=== PATIENT | male | born 1985 | race Caucasian/White ===

== ENCOUNTER 2020-09-30 23:29 | Emergency (ER) | payer OTHER, SELFPAY ==
[2020-09-30 23:51] VITALS: BP 114/73; PULSE 118; RESP 20; TEMP 37.7; O2SAT 98; BMI 24.3
[2020-10-01] VITALS: BP 128/80; PULSE 96; RESP 16; O2SAT 98
--- NOTE | 2020-10-01 00:10 | ED_ITS ---
HPI - Abdominal Pain General Chief Complaint: Abdominal Pain Stated Complaint: Vomiting Time Seen by Provider: 10/01/20 00:10 Source: patient Mode of arrival: ambulatory History of Present Illness HPI narrative: 35-year-old male who presents with nausea and vomiting since yesterday morning and now complaining of significant epigastric pain with chills denies any urinary symptoms, diarrhea and states that it feels like a big ball of fire. Patient states that he was drinking excessively the previous evening but is noted to have smoked marijuana as well. He states he is not had nausea and vomiting problems associated with marijuana use. Related Data Home Medications Medication Instructions Recorded Confirmed omeprazole 1 cap PO DAILY 09/30/20 09/30/20 Previous Rx's Medication Instructions Recorded sucralfate [Carafate] 10 ml PO BID #420 ml 10/01/20 Allergies Allergy/AdvReac Type Severity Reaction Status Date / Time No Known Allergies Allergy Mild NOT Verified 09/30/20 23:57 [No Known Allergies*] APPLICABLE Review of Systems Review of Systems Pertinent positives and negatives as stated in HPI 10 point review of systems is otherwise negative Physical Exam Vital Signs: Vital Signs: Last Vital Signs Temp 99.8 F 09/30/20 23:51 Pulse 96 10/01/20 00:00 Resp 16 10/01/20 00:00 BP 128/80 10/01/20 00:00 Pulse Ox 98 10/01/20 00:00 Body Mass Index 24.3 VITAL SIGNS: Reviewed. GENERAL: Well developed, well nourished, mild distress. HEAD: Normocephalic/atraumatic, EYES: PERRLA, EOMI OROPHARYNX: no oral lesions noted, posterior pharynx clear, dry mucosa NECK: Supple, no adenopathy LUNGS: Normal breath sounds. No adventitious sounds or accessory muscle use. SpO2<98> CARDIOVASCULAR: Regular rate and rhythm without noted murmurs ABDOMEN: Soft, diffusely tender through epigastrium and right side of abdomen but maximal at epigastrium without rebound, non-distended with bowel sounds. NEUROLOGIC: Alert and oriented x 4. Course Course Course Narrative: 35-year-old male with history and clinical presentation most consistent with gastritis, pancreatitis and less likely hepatobiliary or appendix pathologies. Review of all investigations for acute findings to better explain patient's symptoms and on re-evaluation patient has had significant improvement with IV fluids, Zofran, and GI cocktail. The GI cocktail was followed by a p.o. challenge which was successful and patient was also provided with Carafate. He reports significant improvement and is ready for discharge. MDM - Abdominal Pain Lab Data Result diagrams: 10/01/20 00:42 10/01/20 00:42 Labs: Lab Results 10/01/20 10/01/20 10/01/20 Range/Units 00:41 00:42 00:42 WBC 9.5 (4.8-10.8) X10*3/uL RBC 5.37 (4.60-5.80) X10*6/uL Hgb 15.8 (14.0-18.0) g/dl Hct 47.6 (42-52) % MCV 88.6 (80-98) fL MCH 29.4 (27.0-33.0) pg MCHC 33.2 (31.0-36.0) g/dl RDW 13.8 (11.0-16.0) % Plt Count 129 L (160-400) X10*3/uL MPV 12.5 H (9.4-12.4) fL Immature Gran % (Auto) 0.3 (0.0-0.4) % Neut % (Auto) 89.7 H (45-73) % Lymph % (Auto) 5.9 L (20-40) % Mcdonough % (Auto) 4.0 (2-11) % Eos % (Auto) 0.0 (0-4) % Baso % (Auto) 0.1 (0-2) % Lymph # (Auto) 0.6 L (1.2-4.9) X10*3/uL Mcdonough # (Auto) 0.4 (0.1-1.2) X10*3/uL Eos # (Auto) 0.0 (0.0-0.4) X10*3/uL Baso # (Auto) 0.0 (0.0-0.2) X10*3/uL Abs Immat Gran (auto) 0.03 (0.00-0.03) X10*3/uL Absolute Neuts (auto) 8.5 H (2.0-8.3) X10*3/uL Absolute Nucleated RBC 0.000 (0.0-0.012) X10*3/uL Nucleated RBC % (auto) 0.0 (0.0-0.2) /100WBC Smear Tech's Comments VERIFIED Sodium 144 (135-145) mmol/L Potassium 4.2 (3.3-5.1) mmol/L Chloride 104 (96-108) mmol/L Carbon Dioxide 26 (22-29) mmol/L Anion Gap 18 (12-20) BUN 13 (9-16) mg/dL Creatinine 1.26 (0.5-1.4) mg/dL Estim Creat Clear Calc 79.1 Estimated GFR > 60 Random Glucose 99 (60-115) mg/dL Calcium 10.3 H (8.4-10.2) mg/dL Total Bilirubin 1.1 H (0.0-1.0) mg/dL AST 15 (5-37) U/L ALT 13 (0-40) U/L Alkaline Phosphatase 69 (39-117) U/L Total Protein 7.7 (6.5-8.0) g/dL Albumin 5.2 H (3.5-5.0) g/dL Lipase 10 (8-78) U/L Discharge Plan Discharge Clinical Impression: Alcoholic gastritis Patient Disposition: Home, Self-Care Instructions: Gastritis (ED), Diet for Stomach Ulcers and Gastritis (ED) Additional Instructions: Increase fluid hydration especially with water. Stick with a bland diet for the next 24-48 hours. Follow-up with your primary care provider in the next 2-3 days for re- evaluation. Do not hesitate to return to the emergency room should you develop any acute worsening of symptoms. Prescriptions: New sucralfate [Carafate] 100 mg/mL suspension 10 ml PO BID Qty: 420 RF: 0 No Action omeprazole 40 mg capsule,delayed release(DR/EC) 1 cap PO DAILY RF: 0 PMFSH Past Medical History Source: nursing notes reviewed Medical History No known health problems Social History Social History Advance Directives: No
[2020-10-01 00:47] LABS: Basophils Percent Auto 0.1 % (0-2); Hematocrit 47.6 % (42-52); Hemoglobin 15.8 g/dl (14.0-18.0); Imm Gran Abs Auto 0.03 X10*3/uL (0.00-0.03); Imm Gran Pct Auto 0.3 % (0.0-0.4); Lymphocytes Absolute Auto 0.6 X10*3/uL (1.2-4.9); Lymphocytes Percent Auto 5.9 % (20-40); MANUAL DIFF FLAG SCAN; Mean Corpuscular HGB Conc 33.2 g/dl (31.0-36.0); Mean Corpuscular Hemoglobin 29.4 pg (27.0-33.0); Mean Corpuscular Volume 88.6 fL (80-98); Mean Platelet Volume 12.5 fL (9.4-12.4); Monocytes Absolute Auto 0.4 X10*3/uL (0.1-1.2); Neutrophils Absolute Auto 8.5 X10*3/uL (2.0-8.3); Neutrophils Percent Auto 89.7 % (45-73); Platelet Count 129 X10*3/uL (160-400); Red Blood Count 5.37 X10*6/uL (4.60-5.80); Red Cell Distribution Width 13.8 % (11.0-16.0); SCAN SMEAR FLAG 1; White Blood Count 9.5 X10*3/uL (4.8-10.8)
[2020-10-01] MEDS: 0.9 % Sodium Chloride 1,000 ML 999 ML IV ×2 (00:48→01:56)
[2020-10-01] MEDS: ondansetron HCL 4 MG/2 ML VIAL IVPUSH (00:48)
[2020-10-01 01:10] LABS: Alanine Aminotransferase 13 U/L (0-40); Albumin Level 5.2 g/dL (3.5-5.0); Alkaline Phosphatase 69 U/L (39-117); Anion Gap 18 (12-20); Aspartate Amino Transferase 15 U/L (5-37); Bilirubin Total 1.1 mg/dL (0.0-1.0); Blood Urea Nitrogen 13 mg/dL (9-16); Calcium 10.3 mg/dL (8.4-10.2); Carbon Dioxide 26 mmol/L (22-29); Chloride 104 mmol/L (96-108); Creatinine Clr Calc Pharmacy 79.1; Estimated Glomerular Filt Rate > 60; Glucose Random 99 mg/dL (60-115); Potassium 4.2 mmol/L (3.3-5.1); Sodium 144 mmol/L (135-145); Total Protein 7.7 g/dL (6.5-8.0)
[2020-10-01 01:11] LABS: Lipase 10 U/L (8-78)
[2020-10-01 01:11] LABS: SLIDE REVIEW VERIFIED
[2020-10-01] MEDS: Magnesium Hydrox/Alum Hydrox 30 ML ORAL.SUSP PO (01:56)
[2020-10-01] MEDS: diphenhydrAMINE HCL 50 MG/ML VIAL 25 MG IVPUSH (01:56)
[2020-10-01] MEDS: Lidocaine HCl Viscous 2 % 15 ML SOLUTION 10 ML MUCOUS MEM (01:56)
[2020-10-01] MEDS: Metoclopramide HCl 10 MG/2 ML VIAL IVPUSH (01:57)
[2020-10-01] MEDS: Famotidine/PF 20 MG/2 ML VIAL IVPUSH (01:57)
[2020-10-01 02:00] VITALS: BP 142/78; PULSE 103; RESP 20; TEMP 37.3; O2SAT 99
[2020-10-01] MEDS: Sucralfate Oral Suspension 1 GM/10 ML ORAL.SUSP PO (03:45)
[2020-10-01 04:00] VITALS: BP 118/72; PULSE 88; RESP 18; O2SAT 98
--- NOTE | 2020-10-01 04:17 | PC.NURSE ---
Patient given and tolerated PO challenge. Pt states I feel so much better than before, thank you so much . Will continue to monitor with likely plan to discharge home.
== END 2020-10-01 05:37 | disposition home or self-care (01) ==
PROVIDERS: Emergency Provider Student in an Organized Health Care Education/Training Program; PCP Internal Medicine
DX: K29.20 Alcoholic gastritis without bleeding (principal); R10.13 Epigastric pain
CPT/HCPCS: 36415; 80053; 83690; 85025; 96361; 96374; 96375; 99284; J1200; J2405; J2765

== ENCOUNTER 2020-10-13 09:19 | Emergency (ER) | payer OTHER, SELFPAY ==
--- NOTE | ~2020-10-13 | XR_ITS ---
EXAMINATION: XR HAND, RIGHT CLINICAL INFORMATION: Injury COMPARISON: None TECHNIQUE: PA, lateral, and oblique views of the right hand. FINDINGS: There is soft tissue swelling seen overlying the region of the third and fourth metacarpal phalangeal joints. No dislocation is evident. There is calcific density along the radial aspect base of the fourth proximal phalanx which could possibly represent small avulsion fracture fragment. This could be acute or chronic in nature. XR/XR hand RT 2V IMPRESSION: Soft tissue swelling with question avulsion injury base of the fourth proximal phalanx which may be acute or chronic in nature.
--- NOTE | 2020-10-13 10:58 | ED_ITS ---
HPI - Extremity Injury (Upper) General Chief Complaint: Extremity Injury, Upper Stated Complaint: swollen hand Time Seen by Provider: 10/13/20 10:54 Source: patient and RN notes reviewed Mode of arrival: ambulatory Limitations: no limitations History of Present Illness HPI narrative: 35-year-old male coming here today complaining of right hand pain. Patient reports that 6 days ago he punched cement wall and tried keeping ice on it for the 1st few days was able to move his hand, however this morning he woke up and his 4th knuckle is swollen, able to move his fingers however unable to close his fist tight. Denies any other symptoms Related Data Home Medications Medication Instructions Recorded Confirmed omeprazole 1 cap PO DAILY 09/30/20 09/30/20 Previous Rx's Medication Instructions Recorded sucralfate [Carafate] 10 ml PO BID #420 ml 10/01/20 ibuprofen 600 mg PO Q8H PRN #20 tab 10/13/20 Allergies Allergy/AdvReac Type Severity Reaction Status Date / Time No Known Allergies Allergy Mild NOT Verified 09/30/20 23:57 [No Known Allergies*] APPLICABLE Review of Systems Review of Systems: Constitutional : No Weight loss, No Fever, No Chills, No Night Sweats, No Fatigue, No Malaise ENT/Mouth : No Hearing loss, No Ear Pain, No Nasal Congestion, No Sinus Pain, No Hoarseness, No sore throat, No Rhinorrhea, No Swallowing Difficulty Eyes: No Eye Pain, No Swelling, No Redness, No Foreign Body, No Discharge, No Vision Changes Cardiovascular : No Chest Pain, No SOB, No Dyspnea on Exertion, No Orthopnea, No Edema, No Palpitations Respiratory : No Cough, No Sputum, No Wheezing, No Smoke Exposure, No Dyspnea Gastrointestinal : No Nausea, No Vomiting, No Diarrhea, No Constipation, No abdominal Pain, No Hematochezia, No Melena Genitourinary : no irregular bleeding, No Dysuria, No Urinary Frequency, No Hematuria, No Urinary Incontinence, No Urgency, No Flank Pain, No Urinary Flow Changes, No Hesitancy Musculoskeletal : joint pain , No Myalgias, Joint Swelling Skin : No Skin Lesions, No rash Neuro : No Weakness, No Numbness, No Paresthesias, No Loss of Consciousness, No Dizziness, No Headache Psych : No Anxiety/Panic, No Depression, No SI/HI/AH/VH, No Social Issues, Heme/Lymph: No Bruising, No Bleeding,No Lymphadenopathy Endocrine : No Polyuria, No Polydipsia, No Temperature Intolerance Yes all other systems are reviewed and are negative PMFSH Past Medical History Medical History (Updated 10/13/20 @ 11:49 by Jena Toribio [facility]) GERD (gastroesophageal reflux disease) No known health problems Social History Social History Advance Directives: No Advance Directives Information Provided: No Physical Exam Vital Signs: Vital Signs: Last Vital Signs Temp 97.4 F 10/13/20 11:24 Pulse 78 10/13/20 11:24 Resp 16 10/13/20 11:24 BP 138/106 H 10/13/20 11:24 Pulse Ox 100 10/13/20 11:24 Body Mass Index 24.3 Const: General: healthy appearing, no acute distress and well developed Nutritional Appearance: well nourished Orientation/consciousness: patient oriented x3 Neck: Neck: Yes normal visual inspection, Yes full ROM and Yes trachea midline Thyroid: Thyroid normal Resp: Auscultation: clear to auscultation bilaterally Cardio: Rate: regular rate Rhythm: regular rhythm GI: Inspection: Yes normal to inspection and No distended Palpation (GI): No hepatosplenomegaly present Auscultation: normal bowel sounds Skin: General skin exam: elasticity normal, turgor normal and dry skin Neuro: General: patient oriented x3 Extrem: General: Yes normal to inspection, Yes full ROM and Yes capillary refill normal Right upper extremity: Extremity exam: right hand Details: ten derness (Fourth metacarpal phalangeal joint) Hand/finger images: 1. Swelling Course Course Course Narrative: Patient is seen here today for complaining of right hand pain. Fourth proximal phalanx swollen. Patient able to move his fingers however he is unable to close his fist. Reports that he sustained an injury after punching cement wall 6 days ago. Applied ice for the 1st 3 days, the swelling went down able to move his hands however this morning unable to move his hands and the swelling came back. No redness, no open areas. Will send him for x-ray. Reevaluation(s) Reevaluation #1: X-ray showed soft tissue swelling overlying the region of the 3rd and 4th metacarpal phalangeal joints. No dislocation was evident. Questioning avulsion fracture over 4th proximal phalanx. Will splint him and send him to follow-up with orthopedics. Patient received ibuprofen with some affect. I will send him home with a script MDM - Extremity Injury (Upper) Imaging Data Right hand x-ray: Radiologist's impression: FINDINGS: There is soft tissue swelling seen overlying the region of the third and fourth metacarpal phalangeal joints. No dislocation is evident. There is calcific density along the radial aspect base of the fourth proximal phalanx which could possibly represent small avulsion fracture fragment. This could be acute or chronic in nature. XR/XR hand RT 2V IMPRESSION: Soft tissue swelling with question avulsion injury base of the fourth proximal phalanx which may be acute or chronic in nature. Discharge Plan Discharge Clinical Impression: Fracture of hand Patient Disposition: Home, Self-Care Instructions: Boxer Fracture (ED) Additional Instructions: You were seen here today after sustaining injury to her right hand. The x-ray showed that you may have a fracture of your knucle. Your hand was splinted today. Please make sure that you keep the splint dry. Keep your hand elevated. Follow-up with your PCP in 2-3 days. Please call orthopedic office at [phone] tomorrow for follow-up appointment. Keep an eye on your fingers making sure that you can move them. Check for any discoloration or swelling in your fingers. Prescriptions: New ibuprofen 600 mg tablet 600 mg PO Q8H PRN (Reason: pain) Qty: 20 RF: 0 No Action omeprazole 40 mg capsule,delayed release(DR/EC) 1 cap PO DAILY RF: 0 sucralfate [Carafate] 100 mg/mL suspension 10 ml PO BID Qty: 420 RF: 0 Stand Alone Forms: Work/School Release Interventions: ED Discharge Assessment Last Done: 10/13/20 12:07 Discharge Date/Time: 10/13/20 12:08
[2020-10-13 11:24] VITALS: BP 138/106; PULSE 78; RESP 16; TEMP 36.3; O2SAT 100; BMI 24.3
[2020-10-13] MEDS: Ibuprofen 600 MG TABLET PO (11:34)
== END 2020-10-13 12:08 | disposition home or self-care (01) ==
PROVIDERS: Emergency Provider Emergency Medicine; PCP Internal Medicine
DX: S62.614A Displaced fracture of proximal phalanx of right ring finger, initial encounter for closed fracture (principal); M79.641 Pain in right hand; Y29.XXXA Contact with blunt object, undetermined intent, initial encounter; Y93.9 Activity, unspecified; Y92.9 Unspecified place or not applicable; Y99.9 Unspecified external cause status; Z79.899 Other long term (current) drug therapy
CPT/HCPCS: 73120; 99283

== ENCOUNTER → 2020-10-16 10:29 | Outpatient (BNVA) | payer OTHER, SELFPAY | PROVIDERS: PCP Internal Medicine; Visit Provider Physician Assistant | DX: S62.308A Unspecified fracture of other metacarpal bone, initial encounter for closed fracture (principal) | CPT/HCPCS: 99202 ==

== ENCOUNTER 2020-10-30 07:56 | Outpatient (REF) | payer OTHER, SELFPAY | END 2020-10-30 07:57 | disposition home or self-care (01) | LOC: HO.HOSX 07:56 | PROVIDERS: Visit Provider Physician Assistant | DX: Z13.89 Encounter for screening for other disorder (principal) ==

== ENCOUNTER 2021-08-28 09:19 | Emergency (ER) | payer OTHER, SELFPAY ==
[2021-08-28 09:30] VITALS: BP 124/89; PULSE 89; RESP 16; TEMP 37.1; O2SAT 99; BMI 25.8
[2021-08-28] MEDS: Lidocaine 4 % Patch ADH..PATCH 1 PATCH TRANSDERMA (12:33)
[2021-08-28] MEDS: Ketorolac Tromethamine 30 MG/ML VIAL IM (12:34)
--- NOTE | 2021-08-28 12:50 | ED.BACK ---
HPI - Back Pain/Injury General Chief Complaint: Back Pain/Injury Stated Complaint: neck arms pain Time Seen by Provider: 08/28/21 12:18 Source: patient Mode of arrival: ambulatory History of Present Illness HPI Narrative: 36-year-old male with past medical history of GERD, sciatica, presenting to the ED complaining right-sided upper back/neck pain radiating to right arm s/p cracking neck the other day. Reports cracks neck daily due to stiffness, and pain began a few days afterwards. Pain worse with movement/deep breathing. Denies direct injury/trauma or fall. Denies weakness, numbness, tingling, abdominal pain, nausea/vomiting, CP/SOB, urinary incontinence/retention MD elicited complaint: back pain Onset (ago): day(s) Related Data Home Medications Medication Instructions Recorded Confirmed omeprazole 40 mg capsule,delayed 1 cap PO DAILY 09/30/20 09/30/20 release Previous Rx's Medication Instructions Recorded sucralfate 100 mg/mL oral 10 ml PO BID #420 ml 10/01/20 suspension (Carafate) ibuprofen 600 mg tablet 600 mg PO Q8H PRN #20 tab 10/13/20 acetaminophen 500 mg tablet 500 mg PO Q6H PRN #14 tab 08/28/21 (Tylenol Extra Strength) cyclobenzaprine 5 mg tablet 5 mg PO Q8H PRN 5 Days #14 tab 08/28/21 lidocaine 5 % topical patch 1 patch TOPICAL DAILY PRN #30 ea 08/28/21 (Lidoderm) MDD remove after 12 hours naproxen 500 mg tablet 500 mg PO BID PRN 10 Days #20 tab 08/28/21 Allergies Allergy/AdvReac Type Severity Reaction Status Date / Time No Known Allergies Allergy Mild NOT Verified 10/16/20 10:41 [No Known Allergies*] APPLICABLE Review of Systems Review of Systems: Constitutional: No Fever, No Chills ENT/Mouth: No Ear Pain, No Nasal Congestion, No sore throat, No Rhinorrhea, No Swallowing Difficulty Cardiovascular: No Chest Pain, No SOB Respiratory: No Cough, No Sputum Gastrointestinal: No Nausea, No Vomiting, No Diarrhea, No Constipation, No Abdominal pain Genitourinary: No Dysuria, No Urinary Frequency, No Hematuria, No Urinary Incontinence/retention, No Urgency, No Flank Pain Musculoskeletal: + joint pain, No Myalgias, No Joint Swelling Skin: No Skin Lesions, No rash Neuro: No Weakness, No Numbness, No Paresthesias, No headache Yes all other systems are reviewed and are negative Neurologic: Denies Sensory deficit (Neuro) [facility] Past Medical History Attestation statement: The following information was validated with the patient. Medical History GERD (gastroesophageal reflux disease) No known health problems Social History Social History Alcohol intake: former Patient Tobacco Use Status: Tobacco use Unknown Advance Directives: No Advance Directives Information Provided: Yes Current occupation: right handed Physical Exam Vital Signs: Vital Signs: Last Vital Signs Temp 98.7 F 08/28/21 09:30 Pulse 89 08/28/21 09:30 Resp 16 08/28/21 09:30 BP 124/89 08/28/21 09:30 Pulse Ox 99 08/28/21 09:30 BMI result Body Mass Index 25.8 Const: General: cooperative, healthy appearing, no acute distress, alert, awake and Physically active Orientation/consciousness: patient oriented x3 Limitations: no limitations HEENT: Head: Yes normal to inspection and Yes atraumatic Ears: hearing grossly normal bilaterally General nose exam: Normal external nose present Face and sinus: Yes normal facial exam Eyes: General: appearance normal, both eyes and all related structures EOM: EOMs intact bilaterally Neck: Other: No midline cervical spinous tenderness or paraspinal tenderness. Mild right trapezius muscle tenderness. Full range of motion of neck intact. Mild pain with rightward turning of neck. No appreciable swelling Neck: Yes normal visual inspection and No anterior neck swelling Resp: Effort & Inspection: normal respiratory effort and no respiratory distress Cardio: Rate: regular rate Heart sounds: S1 normal heart sound present and S2 normal heart sound present GI: Inspection: Yes normal to inspection Palpation (GI): Soft to palpation, nontender, no guarding and not rigid : General: Yes no CVA tenderness Back/Spine/Pelvis: Other: No midline thoracic/lumbar spinous tenderness. + right-sided subscapular/paraspinal thoracic tenderness and palpable muscle spasming Back: no CVA tenderness Skin: Rashes: no rashes Wounds: no wounds Neuro: Other: Strength intact throughout. No saddle anesthesia. General: patient oriented x3, gait normal, tone normal, moves all extremities and no focal motor deficits Gait exam (Neuro): Normal gait present Motor exam (neuro): 5/5 motor strength present throughout Sensory Exam: No Sensory deficit (Neuro) Extrem: General: Yes normal to inspection MDM - Back Pain/Injury MDM Narrative Medical decision making narrative: 36-year-old male with past medical history of GERD, sciatica, presenting to the ED complaining right-sided upper back/neck pain radiating to right arm s/p cracking neck the other day. On exam vital signs stable, NAD, physical exam as above. Concern for MSK pain/spasming vs radiculopathy. Low concern for cervical dissection/cauda equina/cord compression. No cervical tenderness appreciated. No red flag symptoms, no appreciable weakness Plan: IM Toradol, symptomatic from days, PCP follow-up Medical Records Attestation: I reviewed the patient's medical records. Lab Data Attestation: I reviewed the patient's lab results. Discharge Plan Discharge Clinical Impression: Thoracic back pain Patient Disposition: Home, Self-Care Instructions: Thoracic Pain (ED) Additional Instructions: Your pain is likely musculoskeletal Flexeril is a muscle relaxer, take at night as it makes you drowsy, do not drive, drink alcohol, or operate machinery while taking it Naproxen as an anti-inflammatory / pain medication, take with food Lidoderm patches are numbing patches, apply to painful area In addition take Tylenol at home If symptoms persist or worsen, pain becomes unbearable, you developed urinary retention or incontinence, or weakness return to the ED Prescriptions: New acetaminophen [Tylenol Extra Strength] 500 mg tablet 500 mg PO Q6H PRN (Reason: pain or fever) Qty: 14 0RF lidocaine [Lidoderm] 5 % adhesive patch,medicated 1 patch topical DAILY MDD remove after 12 hours PRN (Reason: pain) Qty: 30 0RF Rx Instructions: leave on most painful area for up to 12 hrs naproxen 500 mg tablet 500 mg PO BID PRN (Reason: pain) 10 Days Qty: 20 0RF cyclobenzaprine 5 mg tablet 5 mg PO Q8H PRN (Reason: pain (scale score 7-10)) 5 Days Qty: 14 0RF No Action ibuprofen 600 mg tablet 600 mg PO Q8H PRN (Reason: pain) Qty: 20 0RF omeprazole 40 mg capsule,delayed release(DR/EC) 1 cap PO DAILY 0RF sucralfate [Carafate] 100 mg/mL suspension 10 ml PO BID Qty: 420 0RF Referrals: Fabio Brasher III, MD [Primary Care Provider] - 3 days Stand Alone Forms: Work/School Release
== END 2021-08-28 13:00 | disposition home or self-care (01) ==
PROVIDERS: Emergency Provider Emergency Medicine Emergency Medical Services; PCP Internal Medicine
DX: M54.6 Pain in thoracic spine (principal)
CPT/HCPCS: 96372; 99284; J1885

== ENCOUNTER 2021-11-05 10:03 | Emergency (ER) | payer OTHER, SELFPAY ==
--- NOTE | ~2021-11-05 | XR_ITS ---
EXAMINATION: XR CHEST CLINICAL INFORMATION: Left-sided chest pain COMPARISON: Previous chest x-ray February 2019 TECHNIQUE: Frontal view of the chest was obtained. FINDINGS: No significant abnormality is noted involving the heart, lungs, mediastinum, bony thorax or soft tissues. XR/XR chest 1V IMPRESSION: Unremarkable examination.
[2021-11-05 10:41] VITALS: BP 159/100; PULSE 91; RESP 19; TEMP 36.6; O2SAT 98; BMI 25.0
--- NOTE | 2021-11-05 10:46 | ECG_ITS ---
Test Reason : chest tightness Blood Pressure : / mmHG Vent. Rate : 079 BPM Atrial Rate : 079 BPM P-R Int : 138 ms QRS Dur : 096 ms QT Int : 382 ms P-R-T Axes : 058 026 024 degrees QTc Int : 438 ms Normal sinus rhythm Normal ECG When compared with ECG of 29-JUL-2008 10:57, No significant change was found Referred By: Generic ED Physician Electronically Signed By:LIGIA ANDERSON MD
[2021-11-05 10:54] LABS: Glucose, Whole Blood 91 mg/dL (60-115)
[2021-11-05 11:13] LABS: Appearance Urine CLEAR; Color Urine YELLOW; Glucose Urine UA NEG (NEG); Leukocyte Esterase Urine NEG (NEG); Nitrite Urine NEG (NEG); Specific Gravity - Urine 1.015 (1.005-1.025); Urine Blood NEG (NEG); Urine Ketones NEG (NEG); Urine Protein NEG (NEG-TRACE)
--- NOTE | 2021-11-05 11:13 | ED_ITS ---
HPI - General Adult General Chief complaint: General Medical Stated complaint: chest tightness Time Seen by Provider: 11/05/21 11:13 Source: patient Mode of arrival: ambulatory Limitations: no limitations History of Present Illness HPI narrative: 36 yo male with no medical history presents to the ER with left sided chest pains that started yesterday. He states the pain is shrap, nonradiating and worse with movement and deep breaths. He was unable to sleep last night due to the pain. He was anxious, hyperventilating. He reports increased stress and anxiety in the last 2 years, he is nervous about going to stores and going out in public since the pandemic. He is not on any medications or seen anyone for his worsening anxiety. MD complaint: chest pain Onset (ago): day(s) (1) Location: chest Radiation: non-radiation Severity: moderate Severity scale (1-10): 5 Quality: stabbing Pain Consistency: intermittent Relieving factors: rest Exacerbating factors: movement and other (deep breaths ) Associated symptoms: denies other symptoms Treatments prior to arrival: none Related Data Home Medications Medication Instructions Recorded Confirmed omeprazole 40 mg capsule,delayed 1 cap PO DAILY 09/30/20 09/30/20 release Previous Rx's Medication Instructions Recorded sucralfate 100 mg/mL oral 10 ml PO BID #420 mL 10/01/20 suspension (Carafate) ibuprofen 600 mg tablet 600 mg PO Q8H PRN pain #20 tabs 10/13/20 acetaminophen 500 mg tablet 500 mg PO Q6H PRN pain or fever 08/28/21 (Tylenol Extra Strength) #14 tabs cyclobenzaprine 5 mg tablet 5 mg PO Q8H PRN pain (scale score 08/28/21 7-10) 5 days #14 tabs lidocaine 5 % topical patch 1 patch topical DAILY PRN pain #30 08/28/21 (Lidoderm) ea naproxen 500 mg tablet 500 mg PO BID PRN pain 10 days #20 08/28/21 tabs hydroxyzine HCl 25 mg tablet 25 mg PO BID PRN anxiety #10 tabs 11/05/21 Allergies Allergy/AdvReac Type Severity Reaction Status Date / Time No Known Allergies Allergy Mild NOT Verified 10/16/20 10:41 [No Known Allergies*] APPLICABLE Review of Systems Review of Systems: Constitutional: No Fever, No Chills ENT/Mouth: No sore throat, No Rhinorrhea, No Swallowing Difficulty Cardiovascular: + Chest Pain, + SOB, No Orthopnea, No Edema Respiratory: No Cough, No Sputum, No Wheezing, No dyspnea Gastrointestinal: No Nausea, No Vomiting, No Diarrhea, No abdominal Pain Genitourinary: No Dysuria, No Urinary Frequency, No Hematuria Musculoskeletal: No joint pain, No Myalgias Skin: No Skin Lesions, No rash Neuro: No Weakness, No Numbness, No Dizziness, No Headache Psych: +Anxiety/Panic, + Depression, No SI Heme/Lymph: No Bruising, No Lymphadenopathy Endocrine: No Polyuria, No Polydipsia [facility] Past Medical History Medical History GERD (gastroesophageal reflux disease) No known health problems Social History Social History Alcohol intake: former Patient Tobacco Use Status: Tobacco use Unknown Advance Directives: No Advance Directives Information Provided: No Current occupation: right handed Physical Exam ED Vital Signs: Vital Signs - 24 hr 11/05/21 10:41 11/05/21 12:13 Temperature 98 F Pulse Rate 91 67 Respiratory Rate 19 14 Blood Pressure 159/100 H 131/95 H Pulse Oximetry 98 99 Oxygen Delivery Method Room Air Room Air BMI result Body Mass Index 25.0 Appearance: Alert. Oriented X3. No acute distress. Eyes: Pupils equal, round and reactive to light. ENT: Pharynx normal. Neck: Normal inspection. Neck supple. CVS: Normal heart rate and rhythm. Pulses normal. No chest wall tenderness. Respiratory: No respiratory distress. Breath sounds normal. Abdomen: Soft and nontender. +BS x4 Skin: Skin warm and dry. Normal skin color. Normal skin turgor. No rashes. Extremities: No lower extremity edema. No calf tenderness. Neuro: Oriented X 3. No motor deficit. No sensory deficit. Course Course Course Narrative: 36 yo male presenting with left sided chest pain and anxiety since yesterday. Doubt ACS. PERC negative. Will give dose of ativan, check EKG, trop, CXR and basic labs. Reevaluation(s) Reevaluation #1: Workup is normal. Patient feels much better. Most likely anxiety driven. Given a list of therapists and couselors in the area. Stable for d/c home. Medical Decision Making Lab Data Result diagrams: 11/05/21 11:44 11/05/21 11:44 Labs: Lab Results 11/05/21 11/05/21 11/05/21 Range/Units 10:50 10:57 11:44 WBC 6.1 (4.8-10.8) X10*3/uL RBC 5.40 (4.60-5.80) X10*6/uL Hgb 15.4 (14.0-18.0) g/dl Hct 48.5 (42.0-52.0) % MCV 89.8 (80.0-98.0) fL MCH 28.5 (27.0-33.0) pg MCHC 31.8 (31.0-36.0) g/dl RDW 14.0 (11.0-16.0) % Plt Count 123 L (160-400) X10*3/uL MPV 11.7 (9.4-12.4) fL Immature Gran % (Auto) 0.3 (0.0-0.4) % Neut % (Auto) 69.1 (45-73) % Lymph % (Auto) 23.0 (20-40) % [place] % (Auto) 6.6 (2-11) % Eos % (Auto) 0.7 (0-4) % Baso % (Auto) 0.3 (0-2) % Lymph # (Auto) 1.4 (1.2-4.9) X10*3/uL [place] # (Auto) 0.4 (0.1-1.2) X10*3/uL Eos # (Auto) 0.0 (0.0-0.4) X10*3/uL Baso # (Auto) 0.0 (0.0-0.2) X10*3/uL Abs Immat Gran (auto) 0.02 (0.00-0.03) X10*3/uL Absolute Neuts (auto) 4.2 (2.0-8.3) x10*3/uL Absolute Nucleated RBC 0.000 (0.0-0.012) X10*3/uL Nucleated RBC % (auto) 0.0 (0.0-0.2) /100WBC Sodium (135-145) mmol/L Potassium (3.3-5.1) mmol/L Chloride (96-108) mmol/L Carbon Dioxide (22-29) mmol/L Anion Gap (12-20) BUN (9-16) mg/dL Creatinine (0.5-1.4) mg/dL Estim Creat Clear Calc Estimated GFR POC Glucose 91 (60-115) mg/dL Random Glucose (60-115) mg/dL Calcium (8.4-10.2) mg/dL Troponin I High Sens (<3.5-35.0) ng/L Urine Color YELLOW Urine Appearance CLEAR Urine pH 7.0 (5.0-8.0) Ur Specific [place] 1.015 (1.005-1.025) Urine Protein NEG (NEG-TRACE) MG/DL Urine Glucose (UA) NEG (NEG) MG/DL Urine Ketones NEG (NEG) MG/DL Urine Blood NEG (NEG) Urine Nitrite NEG (NEG) Ur Leukocyte Esterase NEG (NEG) 11/05/21 11/05/21 Range/Units 11:44 11:44 WBC (4.8-10.8) X10*3/uL RBC (4.60-5.80) X10*6/uL Hgb (14.0-18.0) g/dl Hct (42.0-52.0) % MCV (80.0-98.0) fL MCH (27.0-33.0) pg MCHC (31.0-36.0) g/dl RDW (11.0-16.0) % Plt Count (160-400) X10*3/uL MPV (9.4-12.4) fL Immature Gran % (Auto) (0.0-0.4) % Neut % (Auto) (45-73) % Lymph % (Auto) (20-40) % [place] % (Auto) (2-11) % Eos % (Auto) (0-4) % Baso % (Auto) (0-2) % Lymph # (Auto) (1.2-4.9) X10*3/uL [place] # (Auto) (0.1-1.2) X10*3/uL Eos # (Auto) (0.0-0.4) X10*3/uL Baso # (Auto) (0.0-0.2) X10*3/uL Abs Immat Gran (auto) (0.00-0.03) X10*3/uL Absolute Neuts (auto) (2.0-8.3) x10*3/uL Absolute Nucleated RBC (0.0-0.012) X10*3/uL Nucleated RBC % (auto) (0.0-0.2) /100WBC Sodium 141 (135-145) mmol/L Potassium 4.4 (3.3-5.1) mmol/L Chloride 106 (96-108) mmol/L Carbon Dioxide 31 H (22-29) mmol/L Anion Gap 8 L (12-20) BUN 8 L (9-16) mg/dL Creatinine 1.03 (0.5-1.4) mg/dL Estim Creat Clear Calc 95.9 Estimated GFR > 60 POC Glucose (60-115) mg/dL Random Glucose 79 (60-115) mg/dL Calcium 9.3 D (8.4-10.2) mg/dL Troponin I High Sens < 3.5 (<3.5-35.0) ng/L Urine Color Urine Appearance Urine pH (5.0-8.0) Ur Specific [place] (1.005-1.025) Urine Protein (NEG-TRACE) MG/DL Urine Glucose (UA) (NEG) MG/DL Urine Ketones (NEG) MG/DL Urine Blood (NEG) Urine Nitrite (NEG) Ur Leukocyte Esterase (NEG) ECG Data Attestation: I personally reviewed and interpreted this ECG as follows: Prior ECG tracings: available for review Interpretation: normal sinus rhythm, HR 79 bpm, normal NH interval, normal QTC, no ST segment elevations or depressions Discharge Plan Discharge Clinical Impression: Atypical chest pain, Anxiety Patient Disposition: Home, Self-Care Instructions: Noncardiac Chest Pain (ED), Anxiety (ED) Additional Instructions: Your lab workup today was unremarkable. Your pain is not thought to be cardiac. Recommend following up with your doctor as well as a therapist for help coping with anxiety. If you develop new or worsening symptoms call 911 or come back to the ER for further evaluation. Prescriptions: New hydroxyzine HCl 25 mg tablet 25 mg PO BID PRN (Reason: anxiety) Qty: 10 0RF No Action ibuprofen 600 mg tablet 600 mg PO Q8H PRN (Reason: pain) Qty: 20 0RF omeprazole 40 mg capsule,delayed release(DR/EC) 1 cap PO DAILY sucralfate [Carafate] 100 mg/mL suspension 10 ml PO BID Qty: 420 0RF acetaminophen [Tylenol Extra Strength] 500 mg tablet 500 mg PO Q6H PRN (Reason: pain or fever) Qty: 14 0RF lidocaine [Lidoderm] 5 % adhesive patch,medicated 1 patch topical DAILY MDD remove after 12 hours PRN (Reason: pain) Qty: 30 0RF Rx Instructions: leave on most painful area for up to 12 hrs naproxen 500 mg tablet 500 mg PO BID PRN (Reason: pain) 10 Days Qty: 20 0RF cyclobenzaprine 5 mg tablet 5 mg PO Q8H PRN (Reason: pain (scale score 7-10)) 5 Days Qty: 14 0RF Stand Alone Forms: Work/School Release Interventions: ED Discharge Assessment Last Done: 11/05/21 13:40 Discharge Date/Time: 11/05/21 13:40
[2021-11-05 12:05] LABS: MANUAL DIFF FLAG NO
[2021-11-05 12:09] LABS: Basophils Percent Auto 0.3 % (0-2); Eosinophils Percent Auto 0.7 % (0-4); Hematocrit 48.5 % (42.0-52.0); Hemoglobin 15.4 g/dl (14.0-18.0); Imm Gran Abs Auto 0.02 X10*3/uL (0.00-0.03); Imm Gran Pct Auto 0.3 % (0.0-0.4); Lymphocytes Absolute Auto 1.4 X10*3/uL (1.2-4.9); Mean Corpuscular HGB Conc 31.8 g/dl (31.0-36.0); Mean Corpuscular Hemoglobin 28.5 pg (27.0-33.0); Mean Corpuscular Volume 89.8 fL (80.0-98.0); Mean Platelet Volume 11.7 fL (9.4-12.4); Monocytes Absolute Auto 0.4 X10*3/uL (0.1-1.2); Monocytes Percent Auto 6.6 % (2-11); Neutrophils Absolute Auto 4.2 x10*3/uL (2.0-8.3); Neutrophils Percent Auto 69.1 % (45-73); Platelet Count 123 X10*3/uL (160-400); White Blood Count 6.1 X10*3/uL (4.8-10.8)
[2021-11-05] MEDS: LORazepam 1 MG TABLET PO (12:11)
[2021-11-05 12:13] VITALS: BP 131/95; PULSE 67; RESP 14; O2SAT 99
[2021-11-05 12:34] LABS: Troponin-I High Sensitivity < 3.5 ng/L (<3.5-35.0)
[2021-11-05 12:47] LABS: Anion Gap 8 (12-20); Blood Urea Nitrogen 8 mg/dL (9-16); Calcium 9.3 mg/dL (8.4-10.2); Carbon Dioxide 31 mmol/L (22-29); Chloride 106 mmol/L (96-108); Creatinine Clr Calc Pharmacy 95.9; Estimated Glomerular Filt Rate > 60; Glucose Random 79 mg/dL (60-115); Potassium 4.4 mmol/L (3.3-5.1); Sodium 141 mmol/L (135-145)
== END 2021-11-05 13:40 | disposition home or self-care (01) ==
PROVIDERS: Physician Assistant; Emergency Provider Emergency Medicine; PCP Internal Medicine
DX: R07.89 Other chest pain (principal); F41.9 Anxiety disorder, unspecified
CPT/HCPCS: 36415; 71045; 80048; 81003; 82947; 84484; 85025; 93005; 99283; 99284

== ENCOUNTER 2022-01-07 09:58 | Emergency (ER) | payer OTHER, SELFPAY ==
[2022-01-07 10:05] VITALS: BP 142/94; PULSE 72; RESP 16; TEMP 36.9; O2SAT 100; BMI 28.1
[2022-01-07] MEDS: Cyclobenzaprine HCl 5 MG TABLET PO (10:51)
[2022-01-07] MEDS: Ketorolac Tromethamine 30 MG/ML VIAL IM (10:51)
[2022-01-07] MEDS: Lidocaine 4 % Patch ADH..PATCH 1 PATCH TRANSDERMA (10:52)
--- NOTE | 2022-01-07 10:52 | ED.BACK ---
HPI - Back Pain/Injury General Chief Complaint: Back Pain/Injury Stated Complaint: severe back pain Time Seen by Provider: 01/07/22 10:38 Source: patient Mode of arrival: ambulatory History of Present Illness HPI Narrative: 36-year-old male with past medical history of GERD, chronic back pain, presenting to the ED complaining of acute on chronic low back pain x3 days. Denies recent injury/trauma or fall. Reports intermittent radiation down LLE. Denies numbness, tingling, weakness, urinary incontinence/retention, fever. Has been taking Tylenol/Motrin without relief MD elicited complaint: back pain Related Data Home Medications Medication Instructions Recorded Confirmed omeprazole 40 mg capsule,delayed 1 cap PO DAILY 09/30/20 09/30/20 release Previous Rx's Medication Instructions Recorded sucralfate 100 mg/mL oral 10 ml PO BID #420 mL 10/01/20 suspension (Carafate) ibuprofen 600 mg tablet 600 mg PO Q8H PRN pain #20 tabs 10/13/20 acetaminophen 500 mg tablet 500 mg PO Q6H PRN pain or fever 08/28/21 (Tylenol Extra Strength) #14 tabs cyclobenzaprine 5 mg tablet 5 mg PO Q8H PRN pain (scale score 08/28/21 7-10) 5 days #14 tabs lidocaine 5 % topical patch 1 patch topical DAILY PRN pain #30 08/28/21 (Lidoderm) ea naproxen 500 mg tablet 500 mg PO BID PRN pain 10 days #20 08/28/21 tabs hydroxyzine HCl 25 mg tablet 25 mg PO BID PRN anxiety #10 tabs 11/05/21 acetaminophen 500 mg tablet 500 mg PO Q6H PRN fever or pain 01/07/22 (Tylenol Extra Strength) #14 tabs cyclobenzaprine 5 mg tablet 5 mg PO Q8H PRN pain (scale score 01/07/22 7-10) 5 days #14 tabs lidocaine 5 % topical patch 1 patch topical DAILY PRN pain #30 01/07/22 (Lidoderm) ea naproxen 500 mg tablet 500 mg PO BID PRN pain 10 days #20 01/07/22 tabs prednisone 20 mg tablet 40 mg PO DAILY 5 days #10 tabs 01/07/22 Allergies Allergy/AdvReac Type Severity Reaction Status Date / Time No Known Allergies Allergy Mild NOT Verified 10/16/20 10:41 [No Known Allergies*] APPLICABLE Review of Systems Review of Systems: Constitutional:No Fever, No Chills ENT/Mouth: No Ear Pain, No Nasal Congestion, No Sinus Pain, No Hoarseness, No sore throat, No Rhinorrhea, No Swallowing Difficulty Cardiovascular: No Chest Pain, No SOB Respiratory: No Cough, No Sputum Gastrointestinal: No Nausea, No Vomiting, No Diarrhea, No Constipation, No Abdominal pain Genitourinary: No Dysuria, No Urinary Frequency, No Hematuria, No Urinary Incontinence/retention, No Urgency, No Flank Pain Musculoskeletal: + joint pain, No Myalgias, No Joint Swelling Skin: No Skin Lesions, No rash Neuro: No Weakness, No Numbness, No Paresthesias Yes all other systems are reviewed and are negative Constitutional: Constitutional: Reports as per [facility] Past Medical History Attestation statement: The following information was validated with the patient. Medical History GERD (gastroesophageal reflux disease) No known health problems Social History Social History Alcohol intake: former Patient Tobacco Use Status: Tobacco use Unknown Advance Directives: No Advance Directives Information Provided: No Current occupation: right handed Physical Exam Vital Signs: Vital Signs: Last Vital Signs Temp 98.4 F 01/07/22 10:05 Pulse 72 01/07/22 10:05 Resp 16 01/07/22 10:05 BP 142/94 H 01/07/22 10:05 Pulse Ox 100 01/07/22 10:05 O2 Del Method 01/07/22 10:05 BMI result Body Mass Index 28.1 Const: General: cooperative, healthy appearing and no acute distress Orientation/consciousness: patient oriented x3 Limitations: no limitations HEENT: Head: Yes normal to inspection and Yes atraumatic Ears: hearing grossly normal bilaterally General nose exam: Normal external nose present Face and sinus: Yes normal facial exam Eyes: General: appearance normal, both eyes and all related structures EOM: EOMs intact bilaterally Neck: Neck: Yes normal visual inspection and Yes no meningeal signs Resp: Effort & Inspection: normal respiratory effort and no respiratory distress Auscultation: clear to auscultation bilaterally Cardio: Rate: regular rate Heart sounds: S1 normal heart sound present and S2 normal heart sound present GI: Inspection: Yes normal to inspection : General: Yes no CVA tenderness Back/Spine/Pelvis: Other: No midline thoracic/lumbar spinous tenderness/step-off or deformity. + Bilateral lumbar paraspinal tenderness and MSK tenderness noted reproducing subjective complaints Back: no CVA tenderness Skin: Rashes: no rashes Wounds: no wounds Neuro: Other: Strength intact throughout. No saddle anesthesia. Sensation intact to light touch. Neurovascular intact distally General: patient oriented x3, gait normal, tone normal, moves all extremities and no meningeal signs Gait exam (Neuro): Normal gait present Extrem: General: Yes normal to inspection MDM - Back Pain/Injury MDM Narrative Medical decision making narrative: 36-year-old male with past medical history of GERD, chronic back pain, presenting to the ED complaining of acute on chronic low back pain x3 days. On exam vital signs stable, NAD, nontoxic appearing, physical exam as above, no midline spinous tenderness throughout, no red flag symptoms. Concern for MSK pain/strain/spasming and sciatica. Low suspicion for cord compression, cauda equina or epidural abscess Plan: Symptomatic treatment, PCP follow-up/neurosurgery referral Differential Diagnosis Differential diagnosis: Likely lumbar radiculopathy, sciatica and strain of lumbar region Medical Records Attestation: I reviewed the patient's medical records. Lab Data Attestation: I reviewed the patient's lab results. Discharge Plan Discharge Clinical Impression: Lumbar radiculopathy Patient Disposition: Home, Self-Care Instructions: Lumbar Radiculopathy (ED), Lower Back Exercises (ED) Additional Instructions: Your pain is likely musculoskeletal Flexeril is a muscle relaxer, take at night as it makes you drowsy, do not drive, drink alcohol, or operate machinery while taking it Prednisone as a steroid will help with inflammation Naproxen as an anti-inflammatory / pain medication, take with food Lidoderm patches are numbing patches, apply to painful area In addition take Tylenol at home If symptoms persist or worsen, pain becomes unbearable, you developed urinary retention or incontinence, or weakness return to the ED Prescriptions: New prednisone 20 mg tablet 40 mg PO DAILY 5 Days Qty: 10 0RF acetaminophen [Tylenol Extra Strength] 500 mg tablet 500 mg PO Q6H PRN (Reason: fever or pain) Qty: 14 0RF lidocaine [Lidoderm] 5 % adhesive patch,medicated 1 patch topical DAILY MDD remove after 12 hours PRN (Reason: pain) Qty: 30 0RF Rx Instructions: leave on most painful area for up to 12 hrs naproxen 500 mg tablet 500 mg PO BID PRN (Reason: pain) 10 Days Qty: 20 0RF cyclobenzaprine 5 mg tablet 5 mg PO Q8H PRN (Reason: pain (scale score 7-10)) 5 Days Qty: 14 0RF No Action ibuprofen 600 mg tablet 600 mg PO Q8H PRN (Reason: pain) Qty: 20 0RF omeprazole 40 mg capsule,delayed release(DR/EC) 1 cap PO DAILY sucralfate [Carafate] 100 mg/mL suspension 10 ml PO BID Qty: 420 0RF hydroxyzine HCl 25 mg tablet 25 mg PO BID PRN (Reason: anxiety) Qty: 10 0RF acetaminophen [Tylenol Extra Strength] 500 mg tablet 500 mg PO Q6H PRN (Reason: pain or fever) Qty: 14 0RF lidocaine [Lidoderm] 5 % adhesive patch,medicated 1 patch topical DAILY MDD remove after 12 hours PRN (Reason: pain) Qty: 30 0RF Rx Instructions: leave on most painful area for up to 12 hrs naproxen 500 mg tablet 500 mg PO BID PRN (Reason: pain) 10 Days Qty: 20 0RF cyclobenzaprine 5 mg tablet 5 mg PO Q8H PRN (Reason: pain (scale score 7-10)) 5 Days Qty: 14 0RF Referrals: Fabio Brasher III, MD [Primary Care Provider] - Priscila Cosme MD [Physician] - Stand Alone Forms: Work/School Release
== END 2022-01-07 11:22 | disposition home or self-care (01) ==
PROVIDERS: Emergency Provider Emergency Medicine; PCP Internal Medicine
DX: M54.16 Radiculopathy, lumbar region (principal); M54.50 Low back pain, unspecified
CPT/HCPCS: 96372; 99283; 99284; J1885

== ENCOUNTER 2022-03-21 10:50 | Outpatient (REF) | payer OTHER, SELFPAY ==
[2022-03-21 11:10] LABS: MANUAL DIFF FLAG NO
[2022-03-21 11:27] LABS: Basophils Percent Auto 0.5 % (0-2); Eosinophils Absolute Auto 0.1 X10*3/uL (0.0-0.4); Eosinophils Percent Auto 0.9 % (0-4); Hematocrit 48.7 % (42.0-52.0); Hemoglobin 15.4 g/dl (14.0-18.0); Imm Gran Abs Auto 0.02 X10*3/uL (0.00-0.03); Imm Gran Pct Auto 0.3 % (0.0-0.4); Lymphocytes Absolute Auto 1.5 X10*3/uL (1.2-4.9); Mean Corpuscular HGB Conc 31.6 g/dl (31.0-36.0); Mean Corpuscular Hemoglobin 28.4 pg (27.0-33.0); Mean Corpuscular Volume 89.7 fL (80.0-98.0); Mean Platelet Volume 12.1 fL (9.4-12.4); Monocytes Absolute Auto 0.6 X10*3/uL (0.1-1.2); Monocytes Percent Auto 8.6 % (2-11); Neutrophils Absolute Auto 4.4 x10*3/uL (2.0-8.3); Neutrophils Percent Auto 66.7 % (45-73); Platelet Count 127 X10*3/uL (160-400); Red Blood Count 5.43 X10*6/uL (4.60-5.80); Red Cell Distribution Width 14.2 % (11.0-16.0); White Blood Count 6.5 X10*3/uL (4.8-10.8)
[2022-03-21 12:02] LABS: Alanine Aminotransferase 9 U/L (0-40); Albumin Level 4.8 g/dL (3.5-5.0); Alkaline Phosphatase 69 U/L (39-117); Anion Gap 12 (12-20); Aspartate Amino Transferase 15 U/L (5-37); Bilirubin Total 0.8 mg/dL (0.0-1.0); Blood Urea Nitrogen 10 mg/dL (9-16); Calcium 9.3 mg/dL (8.4-10.2); Carbon Dioxide 28 mmol/L (22-29); Chloride 105 mmol/L (96-108); Cholesterol 110 mg/dL; Estimated Glomerular Filt Rate > 60; Glucose Fasting 69 mg/dL (60-99); HDL Cholesterol 33 mg/dL; LDL Cholesterol Calculated 60 mg/dl; Potassium 4.2 mmol/L (3.3-5.1); Rheumatoid Factor < 15.0 IU/mL (<15.0); Sodium 141 mmol/L (135-145); Triglycerides 85 mg/dL
[2022-03-21 12:08] LABS: Erythrocyte Sedimentation Rate 2 MM/HR (0-15)
[2022-03-21 12:26] LABS: TSH reflex Free T4 0.53 uIU/mL (0.32-4.0)
[2022-03-23 08:19] LABS: Syphilis Screen Nonreactive (Nonreactive)
[2022-03-23 09:17] LABS: HBS Num1 61.61 mIU/mL (0-7.99); HBc Num1 0.04 S/CO (0.00-0.79); HBsAGNum1 0.23 S/CO (0.00-0.99); HIV AB/AG Nonreactive (Nonreactive); Hepatitis B Core Antibody Nonreactive (Nonreactive); Hepatitis B Surface Antigen Negative (Negative); ~HepC Num1 0.05 S/CO (0.00-0.79); ~Hepatitis B Surface Antibody REACTIVE (Nonreactive); ~Hepatitis C Antibody Nonreactive (Nonreactive)
[2022-03-23 11:56] LABS: CRP High Sensitivity <0.3 mg/L
== END 2022-03-21 10:51 | disposition home or self-care (01) ==
LOC: HO.LAB 10:50
PROVIDERS: PCP Family Medicine; Visit Provider Family Medicine
DX: Z00.00 Encounter for general adult medical examination without abnormal findings (principal); Z11.4 Encounter for screening for human immunodeficiency virus [HIV]; Z11.59 Encounter for screening for other viral diseases; Z13.220 Encounter for screening for lipoid disorders; Z11.3 Encounter for screening for infections with a predominantly sexual mode of transmission; Z13.29 Encounter for screening for other suspected endocrine disorder; M54.50 Low back pain, unspecified
CPT/HCPCS: 36415; 80053; 80061; 84443; 85025; 85652; 86141; 86431; 86704; 86706; 86780; 86803; 87340; 87389

== ENCOUNTER 2022-04-23 09:12 | Emergency (ER) | payer OTHER, SELFPAY ==
--- NOTE | ~2022-04-23 | CT_ITS ---
EXAMINATION: CT SOFT TISSUE NECK WITH CONTRAST CLINICAL INFORMATION: Submandibular mass on the left with pain and trismus. COMPARISON: There are no prior studies available for comparison. TECHNIQUE: Following the intravenous administration of 60 mL of Omnipaque 350 intravenous contrast, helical imaging was performed in the axial plane with generation of coronal and sagittal reformatted images. This CT examination was performed using dose optimization techniques as appropriate, variously including the following: *Automated exposure control *Adjustment of mA and/or kV according to patient size (this includes techniques or standardized protocols for targeted exams where dose is matched to indication/reason for exam; i.e. extremities or head) *Use of iterative reconstruction technique DLP: 616 mGy-cm FINDINGS: There is mild increased attenuation in the subcutaneous fat in the submental and submandibular regions, more extensive on the left than the right. There is no cervical lymphadenopathy; there are small lymph nodes in multiple levels in the neck bilaterally. The parotid glands are homogeneous in attenuation. There is equivocal fullness of the left submandibular duct, but there are no discrete calcifications in the floor of mouth. There is mild fullness of the intraparenchymal ducts of the left submandibular gland. The glands appear symmetric in attenuation and enhancement. No contour abnormality or pathologic enhancement is seen within the oral cavity or pharyngeal mucosal space. The laryngeal structures are normal. The parapharyngeal fat is preserved. The carotid sheath vasculature opacified normally. No extramucosal soft tissue mass or fluid collection is seen. No retropharyngeal fluid collection is seen. The thyroid gland is normal in size. There is an area of fatty attenuation in the left lobe which measures 0.6 cm and is not clinically significant. The superior mediastinum is unremarkable. The lung apices are clear. The mastoid air cells are well-aerated. There is a large retention cyst in the left maxillary sinus. The temporomandibular joints are normal. No periapical disease is identified. There are no acute osseous findings. The imaged portions of the brain parenchyma are unremarkable. CT/CT soft tissue neck w IV con IMPRESSION: 1. There is equivocal mild fullness of the left submandibular duct and intraparenchymal ducts of the left submandibular gland, with no evidence of acute sialoadenitis. No radiodense calculi are demonstrated in the floor of mouth. However, there is mild increased attenuation in the subcutaneous fat in the submental and submandibular regions bilaterally, which is nonspecific. 2. There is no cervical lymphadenopathy. There are small lymph nodes at multiple levels in the neck bilaterally.
[2022-04-23 09:21] VITALS: BP 173/102; PULSE 77; RESP 18; TEMP 36.9; O2SAT 98; BMI 28.1
--- NOTE | 2022-04-23 10:38 | ED_ITS ---
HPI - General Adult General Chief complaint: Neck Pain/Injury Stated complaint: jaw and mouth issues lump in throat Time Seen by Provider: 04/23/22 10:33 Source: patient Mode of arrival: ambulatory Limitations: no limitations History of Present Illness HPI narrative: Patient is a 36-year-old male presents to the emergency department for evaluation of recurrent mouth/jaw pain/lump. He states he has been seen at the primary care office 2 times for this. He states initially he was given a course of antibiotics and after he completed the course he was seen again and told that he likely had a viral infection and was advised to follow-up with PCP. He is experiencing a lump beneath the left side of his jaw. It is painful for him to open his jaw and he has limited ability to do so, in addition he has some pain with swallowing. Denies fevers, chills, ear pain, dental pain, sore throat, neck pain, neck stiffness, chest pain, shortness of breath, difficulty breathing. Related Data Home Medications Medication Instructions Recorded Confirmed trazodone 50 mg tablet 50 mg PO BEDTIME PRN insomnia 04/01/22 04/09/22 Previous Rx's Medication Instructions Recorded hydroxyzine HCl 25 mg tablet 25 mg PO BID PRN anxiety #10 tabs 03/05/22 cyclobenzaprine 10 mg tablet 10 mg PO BEDTIME #14 tabs 04/01/22 meloxicam 15 mg tablet 15 mg PO DAILY #14 tabs 04/01/22 amoxicillin 875 mg-potassium 1 tab PO BID 10 days #20 tabs 04/09/22 clavulanate 125 mg tablet ibuprofen 600 mg tablet 600 mg PO Q8H PRN pain #30 tabs 04/23/22 Allergies Allergy/AdvReac Type Severity Reaction Status Date / Time No Known Allergies Allergy Mild NOT Verified 04/20/22 12:14 [No Known Allergies*] APPLICABLE Review of Systems Review of Systems: Constitutional : No Fever, No Chills, No changes in PO intake, No difficulty speaking,? no recent dental procedure, no heat or cold intolerance while eating, no recent face trauma, ENT/Mouth : No swallowing difficulty, no change in voice, positive jaw pain, positive facial swelling, no drooling, positive trismus, no bleeding, no throat swelling, no lacerations, no tongue swelling, no gum swelling, Eyes: No Eye Pain, No periorbital Swelling Cardiovascular : No Chest Pain, No SOB Respiratory : No Cough, No Sputum, No Wheezing, No Smoke Exposure, No Dyspnea Gastrointestinal : No Nausea, No Vomiting, No Diarrhea Genitourinary : No Dysuria Musculoskeletal : No Myalgias Skin : No rash, no facial swelling or redness, Neuro : No Weakness, No Numbness, No Headache Yes all other systems are reviewed and are negative [facility] Past Medical History Attestation statement: The following information was validated with the patient. Source: old records reviewed Medical History GERD (gastroesophageal reflux disease) No known health problems Social History Social History Housing: House Alcohol intake: former Patient Tobacco Use Status: Never used Tobacco Tobacco use type: Smokeless Tobacco e-Cigarette/Vaping Use: Never Used Advance Directives: No service: No Current occupational status: employed Current occupation: right handed Physical Exam ED Vital Signs: Vital Signs - 24 hr 04/23/22 09:21 04/23/22 12:36 Temperature 98.5 F Pulse Rate 77 57 Respiratory Rate 18 14 Blood Pressure 173/102 H 147/96 H Pulse Oximetry 98 97 Oxygen Delivery Method Room Air Room Air BMI result Body Mass Index 28.1 Appearance: Alert.?Oriented to person, place and time. No acute distress.?Normal affect. Eyes: Pupils equal, round and reactive to light.? No periorbital or orbital cellulitis ENT: TM normal bilaterally. Pharynx normal, no erythema, exudates, or tonsillar hypertrophy. Left submandibular palpable lump, circumferential 3 cm, mild tenderness upon palpation. No surrounding erythema, warmth. Minimal swelling to the left cheek without erythema or warmth. Positive trismus. No drooling. No palpable induration to the floor of the mouth, or palpable/visual dental abscess Neck: Normal inspection.? Neck supple.?? CVS: Heart sounds normal. Normal heart rate and rhythm.? Pulses normal.?? Respiratory: No respiratory distress.? Lung sounds clear to auscultation bilaterally?? Abdomen: Soft and non-tender. ? Skin: Skin warm and dry.? Normal skin color.? Extremities: No lower extremity edema.? Neuro: Moves all extremities spontaneously. Sensation intact bilaterally. Ambulates with normal steady gait. Course Course Course Narrative: Patient is a 36-year-old male with a past medical history of GERD presenting to emergency department for painful lump and swelling beneath the left jaw. He was seen in primary care office 04/09/2022 and diagnosed with acute prostatitis, given a prescription for Augmentin and advised to use our candies. He was seen again in the clinic on 04/17/2022 for persistent symptoms after completing antibiotic, at that time thought to have acute pharyngitis secondary to a viral infection, was advised ibuprofen and follow-up as needed. Today symptoms persist, and he states he is having difficulty opening his mouth all the way with associated jaw pain and pain with swallowing. Airways pain at the time of examination. Vital signs are overall stable afebrile without tachycardia, tachypnea, or hypoxia. Initially was hypertensive during triage, will repeat. Examination concerning for parotitis, sialolithiasis, retropharyngeal abscess. CT of the soft tissue neck to be obtained in addition to CBC, CMP. Reevaluation(s) Reevaluation #1: CBC overall unremarkable, no leukocytosis, CMP overall unremarkable. CT reveals equivocal fullness of the left submandibular duct and intraparenchymal ducks with no evidence for acute sialoadenitis, no radiodense calculi are demonstrated. No cervical lymphadenopathy. Reviewed these findings with patient. Recommended continued use of anti-inflammatory, hard lemon candies, outpatient follow-up with primary care provider. All questions answered. Disch arged in stable condition. Time: 12:24 Medications Administered Discontinued Medications Generic Name Dose Route Start Last Admin Trade Name Rosie PRN Reason Stop Dose Admin Iohexol 100 ml 04/23/22 12:07 04/23/22 12:07 Iohexol 350 Mg/Ml 100 Ml Infus..Btl IV 04/23/22 12:08 60 ml ONCE ONE Administration Medical Decision Making Medical Records Medical records reviewed: Yes I reviewed the patient's medical records. Lab Data Lab results reviewed: Yes I reviewed the patient's lab results. Result diagrams: 04/23/22 11:05 04/23/22 11:05 Labs: Lab Results 04/23/22 04/23/22 Range/Units 11:05 11:05 WBC 6.3 (4.8-10.8) X10*3/uL RBC 5.31 (4.60-5.80) X10*6/uL Hgb 15.3 (14.0-18.0) g/dl Hct 47.8 (42.0-52.0) % MCV 90.0 (80.0-98.0) fL MCH 28.8 (27.0-33.0) pg MCHC 32.0 (31.0-36.0) g/dl RDW 14.3 (11.0-16.0) % Plt Count 128 L (160-400) X10*3/uL MPV 12.0 (9.4-12.4) fL Immature Gran % (Auto) 0.5 H (0.0-0.4) % Neut % (Auto) 66.3 (45-73) % Lymph % (Auto) 24.6 (20-40) % Josephine % (Auto) 7.8 (2-11) % Eos % (Auto) 0.5 (0-4) % Baso % (Auto) 0.3 (0-2) % Lymph # (Auto) 1.6 (1.2-4.9) X10*3/uL Josephine # (Auto) 0.5 (0.1-1.2) X10*3/uL Eos # (Auto) 0.0 (0.0-0.4) X10*3/uL Baso # (Auto) 0.0 (0.0-0.2) X10*3/uL Abs Immat Gran (auto) 0.03 (0.00-0.03) X10*3/uL Absolute Neuts (auto) 4.2 (2.0-8.3) x10*3/uL Absolute Nucleated RBC 0.000 (0.0-0.012) X10*3/uL Nucleated RBC % (auto) 0.0 (0.0-0.2) /100WBC Sodium 138 (135-145) mmol/L Potassium 4.1 (3.3-5.1) mmol/L Chloride 104 (96-108) mmol/L Carbon Dioxide 29 (22-29) mmol/L Anion Gap 9 L (12-20) BUN 8 L (9-16) mg/dL Creatinine 0.97 (0.5-1.4) mg/dL Estim Creat Clear Calc 111.0 Estimated GFR > 60 Random Glucose 85 (60-115) mg/dL Calcium 9.3 (8.4-10.2) mg/dL Total Bilirubin 0.5 (0.0-1.0) mg/dL AST 15 (5-37) U/L ALT 13 (0-40) U/L Alkaline Phosphatase 67 (39-117) U/L Total Protein 6.6 (6.5-8.0) g/dL Albumin 4.5 (3.5-5.0) g/dL Imaging Data CT soft tissue neck: Radiologist's impression: CT/CT soft tissue neck w IV con IMPRESSION: 1. There is equivocal mild fullness of the left submandibular duct and intraparenchymal ducts of the left submandibular gland, with no evidence of acute sialoadenitis. No radiodense calculi are demonstrated in the floor of mouth. However, there is mild increased attenuation in the subcutaneous fat in the submental and submandibular regions bilaterally, which is nonspecific. ? 2. There is no cervical lymphadenopathy. There are small lymph nodes at multiple levels in the neck bilaterally. Discharge Plan Discharge Clinical Impression: Sialadenitis Patient Disposition: Home, Self-Care Instructions: Sialoadenitis (ED) Additional Instructions: Please return to the emergency department with any new or worsening symptoms or concerns. Contact your primary care provider to arrange for a follow-up visit in regards to this. They may additionally consider referral to ENT specialist. Prescriptions: New ibuprofen 600 mg tablet 600 mg PO Q8H PRN (Reason: pain) Qty: 30 0RF No Action trazodone 50 mg tablet 50 mg PO BEDTIME PRN (Reason: insomnia) cyclobenzaprine 10 mg tablet 10 mg PO BEDTIME Qty: 14 0RF meloxicam 15 mg tablet 15 mg PO DAILY Qty: 14 0RF hydroxyzine HCl 25 mg tablet 25 mg PO BID PRN (Reason: anxiety) Qty: 10 0RF amoxicillin-pot clavulanate 875-125 mg tablet 1 tab PO BID 10 Days Qty: 20 0RF Referrals: Ian Garcias MD [Primary Care Provider] - Interventions: ED Discharge Assessment Last Done: 04/23/22 13:41 Discharge Date/Time: 04/23/22 13:42
[2022-04-23 11:11] LABS: MANUAL DIFF FLAG NO
[2022-04-23 11:19] LABS: Basophils Percent Auto 0.3 % (0-2); Eosinophils Percent Auto 0.5 % (0-4); Hematocrit 47.8 % (42.0-52.0); Hemoglobin 15.3 g/dl (14.0-18.0); Imm Gran Abs Auto 0.03 X10*3/uL (0.00-0.03); Imm Gran Pct Auto 0.5 % (0.0-0.4); Lymphocytes Absolute Auto 1.6 X10*3/uL (1.2-4.9); Lymphocytes Percent Auto 24.6 % (20-40); Mean Corpuscular Hemoglobin 28.8 pg (27.0-33.0); Monocytes Absolute Auto 0.5 X10*3/uL (0.1-1.2); Monocytes Percent Auto 7.8 % (2-11); Neutrophils Absolute Auto 4.2 x10*3/uL (2.0-8.3); Neutrophils Percent Auto 66.3 % (45-73); Platelet Count 128 X10*3/uL (160-400); Red Blood Count 5.31 X10*6/uL (4.60-5.80); Red Cell Distribution Width 14.3 % (11.0-16.0); White Blood Count 6.3 X10*3/uL (4.8-10.8)
[2022-04-23 11:47] LABS: Alanine Aminotransferase 13 U/L (0-40); Albumin Level 4.5 g/dL (3.5-5.0); Alkaline Phosphatase 67 U/L (39-117); Anion Gap 9 (12-20); Aspartate Amino Transferase 15 U/L (5-37); Bilirubin Total 0.5 mg/dL (0.0-1.0); Blood Urea Nitrogen 8 mg/dL (9-16); Calcium 9.3 mg/dL (8.4-10.2); Carbon Dioxide 29 mmol/L (22-29); Chloride 104 mmol/L (96-108); Estimated Glomerular Filt Rate > 60; Glucose Random 85 mg/dL (60-115); Potassium 4.1 mmol/L (3.3-5.1); Sodium 138 mmol/L (135-145); Total Protein 6.6 g/dL (6.5-8.0)
[2022-04-23] MEDS: iohexoL 350 MG/ML 100 ML INFUS..BTL IV (12:07)
[2022-04-23 12:36] VITALS: BP 147/96; PULSE 57; RESP 14; O2SAT 97
== END 2022-04-23 13:42 | disposition home or self-care (01) ==
PROVIDERS: Nurse Practitioner Family; Emergency Provider Emergency Medicine; PCP Family Medicine
DX: K11.20 Sialoadenitis, unspecified (principal); R68.84 Jaw pain
CPT/HCPCS: 36415; 70491; 80053; 85025; 99284; Q9967

== ENCOUNTER 2022-05-26 09:16 | Emergency (ER) | payer OTHER, SELFPAY ==
--- NOTE | ~2022-05-26 | XR_ITS ---
EXAMINATION: XR THORACIC SPINE CLINICAL INFORMATION: Back pain COMPARISON: Chest radiographs 11/05/2021, 03/01/2019 TECHNIQUE: 3 views of the thoracic spine were obtained. FINDINGS: There is normal thoracic segmentation with 12 rib-bearing thoracic vertebrae of normal height and normal thoracic kyphosis. There is no thoracic vertebral compression, spondylolisthesis, destructive process, focal disc narrowing, or paraspinal soft tissue swelling. XR/XR thoracic spine 3V IMPRESSION: Unremarkable examination.
[2022-05-26 09:37] VITALS: BP 134/90; PULSE 100; RESP 20; TEMP 36.7; O2SAT 97; BMI 24.3
[2022-05-26 12:00] VITALS: BP 117/94; PULSE 77; RESP 24; TEMP 36.9; O2SAT 99
--- NOTE | 2022-05-26 12:10 | ED_ITS ---
HPI - Back Pain/Injury General Chief Complaint: Back Pain/Injury Stated Complaint: Back pain Time Seen by Provider: 05/26/22 11:59 Source: patient Mode of arrival: ambulatory Limitations: no limitations History of Present Illness HPI Narrative: 37-year-old male past medical history of hypertension, GERD, anxiety, and lumbar radiculopathy presents to the emergency department with 1 day history of left upper back/shoulder pain which started yesterday after he cracked his neck while stretching. He describes the pain as sharp and aching, 6/10, with pain exacerbated by movement and deep breathing. He states is taking Motrin and use a heating pad with no relief of pain, with last dose of Motrin greater than 12 hours ago. He denies any weakness or paresthesias in BUE. He denies any headache, vision changes, dizziness, ear pain, nausea, vomiting, urinary incontinence or hesitancy, chest pain, or shortness of breath. He denies any known injury or trauma. He reports he was seen in the spring for similar s ymptoms on the right after stretching his neck. MD elicited complaint: back pain Related Data Home Medications Medication Instructions Recorded Confirmed trazodone 50 mg tablet 50 mg PO BEDTIME PRN insomnia 04/01/22 04/09/22 Previous Rx's Medication Instructions Recorded hydroxyzine HCl 25 mg tablet 25 mg PO BID PRN anxiety #10 tabs 03/05/22 cyclobenzaprine 10 mg tablet 10 mg PO BEDTIME #14 tabs 04/01/22 meloxicam 15 mg tablet 15 mg PO DAILY #14 tabs 04/01/22 amoxicillin 875 mg-potassium 1 tab PO BID 10 days #20 tabs 04/09/22 clavulanate 125 mg tablet ibuprofen 600 mg tablet 600 mg PO Q8H PRN pain #30 tabs 04/23/22 cyclobenzaprine 5 mg tablet 5 mg PO TID PRN muscle spasm #14 05/26/22 tabs lidocaine 5 % topical patch 2 patch topical DAILY #30 ea 05/26/22 naproxen 500 mg tablet 500 mg PO BID PRN pain #30 tabs 05/26/22 Allergies Allergy/AdvReac Type Severity Reaction Status Date / Time No Known Allergies Allergy Mild NOT Verified 04/20/22 12:14 [No Known Allergies*] APPLICABLE Review of Systems Review of Systems: In addition to documented HPI above, the additional ROS was obtained: Constitutional: No Weight loss, No Fever, No Chills ENT/Mouth: No Ear Pain, No Nasal Congestion, No Sinus Pain, No Hoarseness, No sore throat, No Rhinorrhea, No Swallowing Difficulty Cardiovascular: No Chest Pain, No SOB Respiratory: No Cough, No Sputum, No Wheezing Gastrointestinal: No Nausea, No Vomiting, No Diarrhea, No Constipation, No Abdominal pain Genitourinary: No Dysuria, No Urinary Frequency, No Hematuria, No Urinary Incontinence/retention, No Urgency, No Flank Pain Musculoskeletal: No joint pain, No Joint Swelling Skin: No Skin Lesions, No rash Neuro: No Weakness, No Numbness, No Paresthesias Yes all other systems are reviewed and are negative PMFSH Past Medical History Attestation statement: The following information was validated with the patient. Source: old records reviewed Medical History GERD (gastroesophageal reflux disease) No known health problems Social History Social History Housing: House Alcohol intake: former Patient Tobacco Use Status: Never used Tobacco Tobacco use type: Smokeless Tobacco e-Cigarette/Vaping Use: Never Used Advance Directives: No Advance Directives Information Provided: No service: No Current occupational status: employed Current occupation: right handed Physical Exam Vital Signs: Vital Signs: Last Vital Signs Temp 98.4 F 05/26/22 12:00 Pulse 77 05/26/22 12:00 Resp 24 H 05/26/22 12:00 BP 117/94 H 05/26/22 12:00 Pulse Ox 99 05/26/22 12:00 O2 Del Method 05/26/22 12:00 BMI result Body Mass Index 24.3 Const: General: cooperative, alert and awake Nutritional Appearance: well nourished Orientation/consciousness: patient oriented x3 Limitations: no limitations HEENT: Head: Yes normal to inspection and Yes normocephalic Ears: hearing grossly normal bilaterally and external ears normal General nose exam: Normal external nose present and Normal nares present Face and sinus: Yes normal facial exam and Yes face symmetric Mouth: Normal oral and palatal mucosa present Teeth and gingiva: dentition normal Throat: Yes posterior oropharynx normal and Yes uvula midline Eyes: General: appearance normal, both eyes and all related structures Visual Agrawal: normal visual agrawal by confrontation Alignment and Position: alignment normal Periorbital: periorbital findings normal Eyelids: Yes eyelids normal Conjunctivae: conjunctivae normal Sclerae: sclerae normal Corneas: corneas normal Pupils: Equal, round and reactive pupils present EOM: EOMs intact bilaterally Neck: Neck: Yes normal visual inspection, Yes full ROM, Yes no lymphadenopathy and Yes no meningeal signs Chest: Chest palpation & inspection: normal inspection of the chest Resp: Effort & Inspection: normal respiratory effort and not labored Auscultation: clear to auscultation bilaterally, no crackles, no rhonchi and no wheezes Cardio: Rate: regular rate Rhythm: regular rhythm GI: Inspection: Yes normal to inspection Palpation (GI): Soft to palpation and nontender Auscultation: normal bowel sounds : General: Yes no CVA tenderness Back/Spine/Pelvis: Back: no CVA tenderness Cervical Spine: cervical muscular tenderness, pain with cervical ROM and No step off deformity Thoracic/Lumbar Spine: pain with thoraco-lumbar ROM Skin: General skin exam: no rashes or lesions noted, no ecchymosis and no erythema Neuro: General: patient oriented x3, tone normal, moves all extremities and no meningeal signs Cranial nerves: Yes Equal, round and reactive pupils present, Yes Normal facial strength present, Yes Midline tongue present and Yes Ability to bilaterally elevate shoulders present Cognition (Neuro): normal cognition Gait exam (Neuro): Normal gait present Motor exam (neuro): 5/5 motor strength present throughout Extrem: General: Yes normal to inspection, Yes full ROM and Yes capillary refill normal Psych: Appearance: grossly normal Mental Status: mental status grossly normal Speech and movement: Normal speech and movement present Affect: normal affect Attitude: cooperative Thought process: Normal thought process present Thought content: Normal thought content present Insight: Good insight present (Psych) Judgement: Good judgement present (Psych) Course Course Course Narrative: 1215: Plan for thoracic x-ray and IM Toradol for pain control. Medications Administered Discontinued Medications Generic Name Dose Route Start Last Admin Trade Name Freq PRN Reason Stop Dose Admin Ketorolac Tromethamine 15 mg 05/26/22 12:10 05/26/22 12:34 Ketorolac Tromethamine 15 Mg/Ml Vial IM 05/26/22 12:11 15 mg ONCE ONE Administration Medical Decision Making Medical Decision Making [facility] Narrative: 37-year-old male past medical history of hypertension, GERD, anxiety, and lumbar radiculopathy presents to the emergency department with 1 day history of left upper back/shoulder pain which started yesterday after he cracked his neck while stretching. He describes the pain as sharp and aching, 6/10, with pain exac erbated by movement and deep breathing. IM Toradol given in the ED with moderate effect in pain. XR thoracic spine negative for acute fracture, dislocation, or soft tissue swelling. Physical exam with no step-offs or red flag symptoms.? Low back pain consistent with muscle strain.? Low suspicion of cauda equina, epidural abscess, lumbar stenosis. ?Patient is safe for discharge at this time with plan to manage acute thoracic back pain with cyclobenzaprine, naproxen, and lidocaine patches in addition to [id number] Tylenol. HPI, PE, diagnostics, and plan discussed with patient and family with no unanswered questions at this time. Patient educated to return to the emergency department with new, worsening, or concerning emergent symptoms. Recommended to follow-up with her primary care provider for further treatment and management. *Refer to Course for additional information on consultations, diagnostic interpretation, consultations, emergency department stay, conversations with pa tient and family, shared decision making with patient, and more information on medical decision making* Radiology Impression Discussion of test interpretation with radiology: I have reviewed the radiologist's reading. Radiologist Impression: I independently reviewed the thoracic x-ray which is unremarkable for thoracic vertebral compression, spondylolisthesis, destructive process, focal disc narrowing, or paraspinal soft tissue swelling. EXAMINATION: XR THORACIC SPINE CLINICAL INFORMATION: Back pain COMPARISON: Chest radiographs 11/05/2021, 03/01/2019 TECHNIQUE: 3 views of the thoracic spine were obtained. FINDINGS: There is normal thoracic segmentation with 12 rib-bearing thoracic vertebrae of normal height and normal thoracic kyphosis. There is no thoracic vertebral compression, spondylolisthesis, destructive process, focal disc narrowing, or paraspinal soft tissue swelling. XR/XR thoracic spine 3V IMPRESSION: Unremarkable examination. ? Dictated By: Michael Khan MD Signed By: <Electronically signed by Michael Khan MD in OV> 05/26/22 1248 DD/ 1221 TD/TT:? Child Welfare Consultant: YVETTE Discharge Plan Discharge Clinical Impression: Thoracic back pain Patient Disposition: Home, Self-Care Instructions: Thoracic Pain (ED), Neck Pain (ED) Additional Instructions: Your xray is negative for fracture, dislocation, or soft tissue swelling and your back pain consistent with muscle strain.? You are safe for discharge at this time with plan to manage your acute thoracic back pain with cyclobenzaprine, naproxen, and lidocaine patches in addition to [id number] Tylenol. Please use medication as directed. Please return to the emergency d epartment with new, worsening, or concerning emergent symptoms. Recommended to follow-up with your primary care provider for further treatment and management. Prescriptions: New cyclobenzaprine 5 mg tablet 5 mg PO TID PRN (Reason: muscle spasm) Qty: 14 0RF naproxen 500 mg tablet 500 mg PO BID PRN (Reason: pain) Qty: 30 0RF lidocaine 5 % adhesive patch,medicated 2 patch topical DAILY Qty: 30 0RF Rx Instructions: leave on most painful area for up to 12 hrs No Action ibuprofen 600 mg tablet 600 mg PO Q8H PRN (Reason: pain) Qty: 30 0RF trazodone 50 mg tablet 50 mg PO BEDTIME PRN (Reason: insomnia) cyclobenzaprine 10 mg tablet 10 mg PO BEDTIME Qty: 14 0RF meloxicam 15 mg tablet 15 mg PO DAILY Qty: 14 0RF hydroxyzine HCl 25 mg tablet 25 mg PO BID PRN (Reason: anxiety) Qty: 10 0RF amoxicillin-pot clavulanate 875-125 mg tablet 1 tab PO BID 10 Days Qty: 20 0RF Referrals: [facility] [Provider Group] Ian Garcias MD [Primary Care Provider] - Stand Alone Forms: Work/School Release Print Language: Persian
[2022-05-26] MEDS: Ketorolac Tromethamine 15 MG/ML VIAL IM (12:34)
--- NOTE | 2022-05-26 12:37 | PC.NURSE ---
PT SITTING IN CHAIR, GUARDED MOVEMENTS NOTED. MEDICATED CHARTED.
== END 2022-05-26 13:41 | disposition home or self-care (01) ==
PROVIDERS: Emergency Provider Emergency Medicine; PCP Family Medicine
DX: M54.6 Pain in thoracic spine (principal)
CPT/HCPCS: 72072; 96372; 99283; 99284; J1885

== ENCOUNTER 2022-06-16 14:29 | Emergency (ER) | payer OTHER, SELFPAY ==
--- NOTE | 2022-06-16 14:31 | ECG_ITS ---
Test Reason : CP Blood Pressure : / mmHG Vent. Rate : 094 BPM Atrial Rate : 094 BPM P-R Int : 134 ms QRS Dur : 098 ms QT Int : 366 ms P-R-T Axes : 055 008 018 degrees QTc Int : 457 ms Normal sinus rhythm Normal ECG When compared with ECG of 05-NOV-2021 10:42, No significant change was found Referred By: Generic ED Physician Electronically Signed By:AUDREY VILA
[2022-06-16 15:19] VITALS: BP 128/91; PULSE 86; RESP 20; TEMP 37.1; O2SAT 99; BMI 24.3
--- NOTE | 2022-06-16 15:19 | ED_ITS ---
HPI - General Adult General Chief complaint: Nausea/Vomiting/Diarrhea <MARIETTA Powell - Last Filed: 06/16/22 15:23> Stated complaint: Chest pain/Body numbness <MARIETTA Powell - Last Filed: 06/16/22 15:23> Time Seen by Provider: 06/16/22 19:14 <MARIETTA Powell - Last Filed: 06/16/22 15:23> Source: patient <Shelby Palacios MD - Last Filed: 06/16/22 19:59> Mode of arrival: ambulatory <Shelby Palacios MD - Last Filed: 06/16/22 19:59> Limitations: no limitations <Shelby Palacios MD - Last Filed: 06/16/22 19:59> History of Present Illness HPI narrative: Patient comes to the emergency room complaining of body aches, nausea/vomiting cough and chills since this morning. Patient has chest pain or shortness of breath <Shelby Palacios MD - Last Filed: 06/16/22 19:59> Related Data Home medications: Home Medications Medication Instructions Recorded Confirmed trazodone 50 mg tablet 50 mg PO BEDTIME PRN insomnia 04/01/22 04/09/22 Previous Rx's Medication Instructions Recorded hydroxyzine HCl 25 mg tablet 25 mg PO BID PRN anxiety #10 tabs 03/05/22 cyclobenzaprine 10 mg tablet 10 mg PO BEDTIME #14 tabs 04/01/22 meloxicam 15 mg tablet 15 mg PO DAILY #14 tabs 04/01/22 amoxicillin 875 mg-potassium 1 tab PO BID 10 days #20 tabs 04/09/22 clavulanate 125 mg tablet ibuprofen 600 mg tablet 600 mg PO Q8H PRN pain #30 tabs 04/23/22 cyclobenzaprine 5 mg tablet 5 mg PO TID PRN muscle spasm #14 05/26/22 tabs lidocaine 5 % topical patch 2 patch topical DAILY #30 ea 05/26/22 naproxen 500 mg tablet 500 mg PO BID PRN pain #30 tabs 05/26/22 ibuprofen 600 mg tablet 600 mg PO Q8H PRN fever or pain 06/16/22 #30 tabs nirmatrelvir 300 mg (150 mg See Rx Instructions PO .COMPLEX 06/16/22 x2)-ritonavir 100 mg tablet,dose #30 ea pack(EUA) (Paxlovid) <MARIETTA Powell - Last Filed: 06/16/22 15:23> Allergies/adverse reactions: Allergies Allergy/AdvReac Type Severity Reaction Status Date / Time No Known Allergies Allergy Mild NOT Verified 04/20/22 12:14 [No Known Allergies*] APPLICABLE <MARIETTA Powell - Last Filed: 06/16/22 15:23> Review of Systems Review of Systems: Constitutional : No Weight loss, No Fever, No Chills, No Night Sweats, complaining of fatigue, generalized malaise, myalgias ENT/Mouth : No Hearing loss, No Ear Pain, No Nasal Congestion, No Sinus Pain, No Hoarseness, No sore throat, No Rhinorrhea, No Swallowing Difficulty Eyes: No Eye Pain, No Swelling, No Redness, No Foreign Body, No Discharge, No Vision Changes Cardiovascular : No Chest Pain, No SOB, No Dyspnea on Exertion, No Orthopnea, No Edema, No Palpitations Respiratory : No Cough, No Sputum, No Wheezing, No Smoke Exposure, No Dyspnea Gastrointestinal : No Nausea, No Vomiting, No Diarrhea, No Constipation, No abdominal Pain, No Hematochezia, No Melena Genitourinary : no irregular bleeding, No Dysuria, No Urinary Frequency, No Hematuria, No Urinary Incontinence, No Urgency, No Flank Pain, No Urinary Flow Changes, No Hesitancy Musculoskeletal : No joint pain, complaining of diffuse Myalgias, No Joint Swelling Skin : No Skin Lesions, No rash Neuro : No Weakness, No Numbness, No Paresthesias, No Loss of Consciousness, No Dizziness, No Headache Psych : No Anxiety/Panic, No Depression, No SI/HI/AH/VH, No Social Issues, Heme/Lymph: No Bruising, No Bleeding,No Lymphadenopathy Endocrine : No Polyuria, No Polydipsia, No Temperature Intolerance <Shelby Palacios MD - Last Filed: 06/16/22 19:59> [facility] Past Medical History Medical History: Medical History GERD (gastroesophageal reflux disease) No known health problems <MARIETTA Powell - Last Filed: 06/16/22 15:23> Social History Social History: Social History Housing: House Alcohol intake: current Alcohol intake frequency: holidays/special occasions only Patient Tobacco Use Status: Never used Tobacco Tobacco use type: Smokeless Tobacco Smoked in Last 30 Days: Yes e-Cigarette/Vaping Use: Never Used Use of substances other than those prescribed or required for medical reasons: Yes Substance Use Type: Marijuana Substance Use Frequency: Daily Advance Directives: No Advance Directives Information Provided: Yes service: No Current occupational status: employed Current occupation: right handed <MARIETTA Powell - Last Filed: 06/16/22 15:23> Physical Exam ED Vital Signs: Vital Signs - 24 hr 06/16/22 15:19 06/16/22 18:53 Temperature 98.7 F 98.7 F Pulse Rate 86 80 Respiratory Rate 20 16 Blood Pressure 128/91 H 138/95 H Pulse Oximetry 99 98 Oxygen Delivery Method Room Air Room Air BMI result Body Mass Index 24.3 <MARIETTA Powell - Last Filed: 06/16/22 15:23> Vital Signs - 24 hr 06/16/22 15:19 06/16/22 18:53 Temperature 98.7 F 98.7 F Pulse Rate 86 80 Respiratory Rate 20 16 Blood Pressure 128/91 H 138/95 H Pulse Oximetry 99 98 Oxygen Delivery Method Room Air Room Air BMI result Body Mass Index 24.3 <Shelby Palacios MD - Last Filed: 06/16/22 19:59> Const Other: Appearance: Alert. Oriented X3. No acute distress. Eyes: Pupils equal, round and reactive to light. ENT: Pharynx normal. Neck: Normal inspection. Neck supple. No lymph nodes noted. No crepitus CVS: Normal heart rate and rhythm. Pulses normal. Normal S1 and S2 Respiratory: No respiratory distress. Breath sounds normal. No Wheezing. No rales , no respiratory distress, oxygen saturation 90% on room air Abdomen: Soft and nontender. No rigidity. No distention. Skin: Skin warm and dry. Normal skin color. Normal skin turgor. Extremities: No lower extremity edema. No Lacerations. No Rash Neuro: Oriented X 3. No motor deficit. No sensory deficit. Moving all extremities. No slurred speech. CN 2 through 12 grossly intact Psych: calm, cooperative, crying, anxious <Shelby Palacios MD - Last Filed: 06/16/22 19:59> Course Course Course Narrative: RME - 37 yo male presenting with whole body aches and pains that started when he woke up this morning, crying in triage. States the pains are terrible muscle aches in his chest, back, legs. Started vomiting in triage and reporting lower abdominal pain. Feels like he has a fever. No known sick contacts at home. Will get labs and viral swabs. Kaitlin ordered. <MARIETTA Powell - Last Filed: 06/16/22 15:23> Medications Administered Discontinued Medications Generic Name Dose Route Start Last Admin Trade Name Freq PRN Reason Stop Dose Admin Acetaminophen 975 mg 06/16/22 16:04 06/16/22 16:09 Acetaminophen 325 Mg Tablet PO 06/16/22 16:05 975 mg ONCE ONE Administration Ondansetron HCl 4 mg 06/16/22 15:20 06/16/22 15:26 Ondansetron Odt 4 Mg Tab.Rapdis TRANSLINGU 06/16/22 15:21 4 mg ONCE ONE Administration <MARIETTA Powell - Last Filed: 06/16/22 15:23> Medications Administered Discontinued Medications Generic Name Dose Route Start Last Admin Trade Name Freq PRN Reason Stop Dose Admin Acetaminophen 975 mg 06/16/22 16:04 06/16/22 16:09 Acetaminophen 325 Mg Tablet PO 06/16/22 16:05 975 mg ONCE ONE Administration Ondansetron HCl 4 mg 06/16/22 15:20 06/16/22 15:26 Ondansetron Odt 4 Mg Tab.Rapdis TRANSLINGU 06/16/22 15:21 4 mg ONCE ONE Administration <Shelby Palacios MD - Last Filed: 06/16/22 19:59> Medical Decision Making Medical Decision Making MDM Narrative: -patient tested positive for COVID-19 -today is the 1st day the patient has symptoms, Patient agrees to take paxlovid -patient given 1 dose of IM Toradol in the emergency room <Shelby Palacios MD - Last Filed: 06/16/22 19:59> Lab Data Result Diagrams: 06/16/22 18:00 06/16/22 18:00 <MARIETTA Powell - Last Filed: 06/16/22 15:23> Labs: Lab Results 06/16/22 06/16/22 06/16/22 Range/Units 18:00 18:00 18:00 WBC 8.9 (4.8-10.8) X10*3/uL RBC 5.56 (4.60-5.80) X10*6/uL Hgb 15.9 (14.0-18.0) g/dl Hct 48.6 (42.0-52.0) % MCV 87.4 (80.0-98.0) fL MCH 28.6 (27.0-33.0) pg MCHC 32.7 (31.0-36.0) g/dl RDW 13.7 (11.0-16.0) % Plt Count 131 L (160-400) X10*3/uL MPV 12.0 (9.4-12.4) fL Immature Gran % (Auto) 0.6 H (0.0-0.4) % Neut % (Auto) 88.9 H (45-73) % Lymph % (Auto) 2.5 L (20-40) % [place] % (Auto) 7.8 (2-11) % Eos % (Auto) 0.0 (0-4) % Baso % (Auto) 0.2 (0-2) % Lymph # (Auto) 0.2 L (1.2-4.9) X10*3/uL [place] # (Auto) 0.7 (0.1-1.2) X10*3/uL Eos # (Auto) 0.0 (0.0-0.4) X10*3/uL Baso # (Auto) 0.0 (0.0-0.2) X10*3/uL Abs Immat Gran (auto) 0.05 H (0.00-0.03) X10*3/uL Absolute Neuts (auto) 7.9 (2.0-8.3) x10*3/uL Absolute Nucleated RBC 0.000 (0.0-0.012) X10*3/uL Nucleated RBC % (auto) 0.0 (0.0-0.2) /100WBC Sodium 141 (135-145) mmol/L Potassium 4.0 (3.3-5.1) mmol/L Chloride 105 (96-108) mmol/L Carbon Dioxide 27 (22-29) mmol/L Anion Gap 13 (12-20) BUN 8 L (9-16) mg/dL Creatinine 0.96 (0.5-1.4) mg/dL Estim Creat Clear Calc 101.9 Estimated GFR > 60 Random Glucose 104 (60-115) mg/dL Calcium 9.5 (8.4-10.2) mg/dL Magnesium 1.9 (1.6-2.6) mg/dL Total Bilirubin 0.6 (0.0-1.0) mg/dL Direct Bilirubin 0.2 (0.0-0.5) mg/dL AST 16 (5-37) U/L ALT 17 (0-40) U/L Alkaline Phosphatase 78 (39-117) U/L Total Creatine Kinase 71 (38-174) U/L Total Protein 7.2 (6.5-8.0) g/dL Albumin 4.9 (3.5-5.0) g/dL Influenza Type A (PCR) NEGATIVE (Negative) Influenza Type B (PCR) NEGATIVE (Negative) RSV RNA Qual (PCR) NEGATIVE (Negative) SARS-CoV-2 RNA (RT-PCR) POSITIVE A (Negative) <MARIETTA Powell - Last Filed: 06/16/22 15:23> Lab Results 06/16/22 06/16/22 06/16/22 Range/Units 18:00 18:00 18:00 WBC 8.9 (4.8-10.8) X10*3/uL RBC 5.56 (4.60-5.80) X10*6/uL Hgb 15.9 (14.0-18.0) g/dl Hct 48.6 (42.0-52.0) % MCV 87.4 (80.0-98.0) fL MCH 28.6 (27.0-33.0) pg MCHC 32.7 (31.0-36.0) g/dl RDW 13.7 (11.0-16.0) % Plt Count 131 L (160-400) X10*3/uL MPV 12.0 (9.4-12.4) fL Immature Gran % (Auto) 0.6 H (0.0-0.4) % Neut % (Auto) 88.9 H (45-73) % Lymph % (Auto) 2.5 L (20-40) % [place] % (Auto) 7.8 (2-11) % Eos % (Auto) 0.0 (0-4) % Baso % (Auto) 0.2 (0-2) % Lymph # (Auto) 0.2 L (1.2-4.9) X10*3/uL [place] # (Auto) 0.7 (0.1-1.2) X10*3/uL Eos # (Auto) 0.0 (0.0-0.4) X10*3/uL Baso # (Auto) 0.0 (0.0-0.2) X10*3/uL Abs Immat Gran (auto) 0.05 H (0.00-0.03) X10*3/uL Absolute Neuts (auto) 7.9 (2.0-8.3) x10*3/uL Absolute Nucleated RBC 0.000 (0.0-0.012) X10*3/uL Nucleated RBC % (auto) 0.0 (0.0-0.2) /100WBC Sodium 141 (135-145) mmol/L Potassium 4.0 (3.3-5.1) mmol/L Chloride 105 (96-108) mmol/L Carbon Dioxide 27 (22-29) mmol/L Anion Gap 13 (12-20) BUN 8 L (9-16) mg/dL Creatinine 0.96 (0.5-1.4) mg/dL Estim Creat Clear Calc 101.9 Estimated GFR > 60 Random Glucose 104 (60-115) mg/dL Calcium 9.5 (8.4-10.2) mg/dL Magnesium 1.9 (1.6-2.6) mg/dL Total Bilirubin 0.6 (0.0-1.0) mg/dL Direct Bilirubin 0.2 (0.0-0.5) mg/dL AST 16 (5-37) U/L ALT 17 (0-40) U/L Alkaline Phosphatase 78 (39-117) U/L Total Creatine Kinase 71 (38-174) U/L Total Protein 7.2 (6.5-8.0) g/dL Albumin 4.9 (3.5-5.0) g/dL Influenza Type A (PCR) NEGATIVE (Negative) Influenza Type B (PCR) NEGATIVE (Negative) RSV RNA Qual (PCR) NEGATIVE (Negative) SARS-CoV-2 RNA (RT-PCR) POSITIVE A (Negative) <Shelby Palacios MD - Last Filed: 06/16/22 19:59> Discharge Plan Discharge Clinical Impression: COVID-19 <MARIETTA Powell - Last Filed: 06/16/22 15:23> Patient Disposition: Home, Self-Care <MARIETTA Powell - Last Filed: 06/16/22 15:23> Instructions: COVID-19 (Coronavirus Disease 2019) (ED) <MARIETTA Powell - Last Filed: 06/16/22 15:23> Additional Instructions: Please follow-up with your primary care physician tomorrow. If you have any worsening or new symptoms, please return to the emergency room or call 911 <MARIETTA Powell - Last Filed: 06/16/22 15:23> Prescriptions: New Paxlovid (EUA) 300 mg (150 mg x 2)-100 mg tablets,dose pack See Rx Instructions .ROUTE .COMPLEX Qty: 30 0RF Rx Instructions: take TWO 150 mg tablets of nirmatrelvir with ONE 100 mg tablet of ritonavir twice daily for 5 days ibuprofen 600 mg tablet 600 mg PO Q8H PRN (Reason: fever or pain) Qty: 30 0RF No Action cyclobenzaprine 5 mg tablet 5 mg PO TID PRN (Reason: muscle spasm) Qty: 14 0RF naproxen 500 mg tablet 500 mg PO BID PRN (Reason: pain) Qty: 30 0RF lidocaine 5 % adhesive patch,medicated 2 patch topical DAILY Qty: 30 0RF Rx Instructions: leave on most painful area for up to 12 hrs ibuprofen 600 mg tablet 600 mg PO Q8H PRN (Reason: pain) Qty: 30 0RF trazodone 50 mg tablet 50 mg PO BEDTIME PRN (Reason: insomnia) cyclobenzaprine 10 mg tablet 10 mg PO BEDTIME Qty: 14 0RF meloxicam 15 mg tablet 15 mg PO DAILY Qty: 14 0RF hydroxyzine HCl 25 mg tablet 25 mg PO BID PRN (Reason: anxiety) Qty: 10 0RF amoxicillin-pot clavulanate 875-125 mg tablet 1 tab PO BID 10 Days Qty: 20 0RF <MARIETTA Powell - Last Filed: 06/16/22 15:23> Stand Alone Forms: Work/School Release <MARIETTA Powell - Last Filed: 06/16/22 15:23>
[2022-06-16] MEDS: Ondansetron ODT 4 MG TAB.RAPDIS TRANSLINGU (15:26)
[2022-06-16] MEDS: Acetaminophen 325 MG TABLET 975 MG PO (16:09)
[2022-06-16 18:05] LABS: MANUAL DIFF FLAG NO
[2022-06-16 18:14] LABS: Basophils Percent Auto 0.2 % (0-2); Hematocrit 48.6 % (42.0-52.0); Hemoglobin 15.9 g/dl (14.0-18.0); Imm Gran Abs Auto 0.05 X10*3/uL (0.00-0.03); Imm Gran Pct Auto 0.6 % (0.0-0.4); Lymphocytes Absolute Auto 0.2 X10*3/uL (1.2-4.9); Lymphocytes Percent Auto 2.5 % (20-40); Mean Corpuscular HGB Conc 32.7 g/dl (31.0-36.0); Mean Corpuscular Hemoglobin 28.6 pg (27.0-33.0); Mean Corpuscular Volume 87.4 fL (80.0-98.0); Monocytes Absolute Auto 0.7 X10*3/uL (0.1-1.2); Monocytes Percent Auto 7.8 % (2-11); Neutrophils Absolute Auto 7.9 x10*3/uL (2.0-8.3); Neutrophils Percent Auto 88.9 % (45-73); Platelet Count 131 X10*3/uL (160-400); Red Blood Count 5.56 X10*6/uL (4.60-5.80); Red Cell Distribution Width 13.7 % (11.0-16.0); White Blood Count 8.9 X10*3/uL (4.8-10.8)
[2022-06-16 18:31] LABS: Alanine Aminotransferase 17 U/L (0-40); Albumin Level 4.9 g/dL (3.5-5.0); Alkaline Phosphatase 78 U/L (39-117); Anion Gap 13 (12-20); Aspartate Amino Transferase 16 U/L (5-37); Bilirubin Direct 0.2 mg/dL (0.0-0.5); Bilirubin Total 0.6 mg/dL (0.0-1.0); Blood Urea Nitrogen 8 mg/dL (9-16); Calcium 9.5 mg/dL (8.4-10.2); Carbon Dioxide 27 mmol/L (22-29); Chloride 105 mmol/L (96-108); Creatinine Clr Calc Pharmacy 101.9; Estimated Glomerular Filt Rate > 60; Glucose Random 104 mg/dL (60-115); Magnesium 1.9 mg/dL (1.6-2.6); Sodium 141 mmol/L (135-145); Total Protein 7.2 g/dL (6.5-8.0)
[2022-06-16 18:46] LABS: Influenza A PCR NEGATIVE (Negative); Influenza B PCR NEGATIVE (Negative); Resp Syncy Virus RNA Qual PCR NEGATIVE (Negative); SARS COV2 PCR INHOUSE POSITIVE (Negative)
[2022-06-16 18:53] VITALS: BP 138/95; PULSE 80; RESP 16; TEMP 37.1; O2SAT 98
--- NOTE | 2022-06-16 18:59 | PC.NURSE ---
a&ox3, vss, cardiac montior on, will continue to monitor.
--- NOTE | 2022-06-16 19:47 | PC.NURSE ---
Assumed care of pt. at 1900. Pt. lying in bed, talking on phone to secure ride home at d/c. Pt. reports pain at 12/31. MD aware and will order meds prior to d/c. Pt. is covid +. Precaution bag in place on curtain. Will continue to monitor.
[2022-06-16] MEDS: Ketorolac Tromethamine 60 MG/2 ML VIAL IM (20:00)
== END 2022-06-16 20:58 | disposition home or self-care (01) ==
PROVIDERS: Physician Assistant; Emergency Provider Emergency Medicine; PCP Family Medicine
DX: U07.1 COVID-19 (principal); R07.89 Other chest pain; R11.2 Nausea with vomiting, unspecified; R05.9 Cough, unspecified; R06.02 Shortness of breath; Z79.899 Other long term (current) drug therapy
CPT/HCPCS: 0241U; 80048; 80076; 82550; 83735; 85025; 93005; 96372; 99284; 99285; J1885

== ENCOUNTER 2022-07-30 10:33 | Emergency (ER) | payer OTHER, SELFPAY ==
[2022-07-30 10:48] VITALS: BP 142/101; PULSE 100; RESP 18; TEMP 36.1; O2SAT 98; BMI 25.8
[2022-07-30 11:03] LABS: MANUAL DIFF FLAG NO
[2022-07-30 11:11] LABS: Basophils Percent Auto 0.5 % (0-2); Eosinophils Percent Auto 0.5 % (0-4); Hematocrit 47.7 % (42.0-52.0); Hemoglobin 15.4 g/dl (14.0-18.0); Imm Gran Abs Auto 0.01 X10*3/uL (0.00-0.03); Imm Gran Pct Auto 0.2 % (0.0-0.4); Lymphocytes Absolute Auto 1.5 X10*3/uL (1.2-4.9); Lymphocytes Percent Auto 24.2 % (20-40); Mean Corpuscular HGB Conc 32.3 g/dl (31.0-36.0); Mean Corpuscular Hemoglobin 28.8 pg (27.0-33.0); Mean Corpuscular Volume 89.3 fL (80.0-98.0); Mean Platelet Volume 12.3 fL (9.4-12.4); Monocytes Absolute Auto 0.4 X10*3/uL (0.1-1.2); Monocytes Percent Auto 6.3 % (2-11); Neutrophils Absolute Auto 4.2 x10*3/uL (2.0-8.3); Neutrophils Percent Auto 68.3 % (45-73); Platelet Count 115 X10*3/uL (160-400); Red Blood Count 5.34 X10*6/uL (4.60-5.80); Red Cell Distribution Width 14.2 % (11.0-16.0); White Blood Count 6.2 X10*3/uL (4.8-10.8)
--- NOTE | 2022-07-30 13:15 | ED_ITS ---
HPI - GI Bleed General Chief complaint: GI Bleed Stated complaint: Abd pain Time Seen by Provider: 07/30/22 13:15 Source: patient Mode of arrival: ambulatory Limitations: no limitations History of Present Illness HPI Narrative: This 37-year-old male with no known medical problems who presents to the ER with complaint of 3 days of abdominal cramping and rectal bleeding. Patient reports 2 episodes of rectal bleeding daily. Patient denies any associated nausea, vomiting, fevers, chills. Patient denies urinary symptoms. Patient reports prior to this episode of cramping and bleeding he was having constipation and straining to move his bowels. Patient reports he suffers from chronic constipation. He has had intermittent rectal bleeding in the past. He does report that approximately 8-9 years ago he did have a colonoscopy at [facility] due to complaints of abdominal pain and this was normal. He denies any weight loss or night sweats. No recent travel or sick contact. No family history of IBD. No history of ISRA therapy use. Related Data Home Medications Medication Instructions Recorded Confirmed trazodone 50 mg tablet 50 mg PO BEDTIME PRN insomnia 04/01/22 07/20/22 Previous Rx's Medication Instructions Recorded hydroxyzine HCl 25 mg tablet 25 mg PO BID PRN anxiety #10 tabs 03/05/22 lidocaine 5 % topical patch 2 patch topical DAILY #30 ea 05/26/22 naproxen 500 mg tablet 500 mg PO BID PRN pain #30 tabs 05/26/22 ibuprofen 600 mg tablet 600 mg PO Q8H PRN fever or pain 06/16/22 #30 tabs cyclobenzaprine 10 mg tablet 10 mg PO TID PRN muscle spasm #20 07/20/22 tabs docusate sodium 100 mg capsule 100 mg PO BID #60 caps 07/30/22 (Colace) polyethylene glycol 3350 17 gram 17 g PO DAILY #30 ea 07/30/22 oral powder packet (Miralax) Allergies Allergy/AdvReac Type Severity Reaction Status Date / Time No Known Allergies Allergy Mild NOT Verified 07/20/22 09:58 [No Known Allergies*] APPLICABLE Review of Systems Review of Systems: Yes all other systems are reviewed and are negative Constitutional: Constitutional: Reports no additional constitutional complaints, Denies body ache(s), Denies chills, Denies fever(s), Denies headache(s) and Denies weakness Eyes: Eyes: Reports no additional eye complaints and Denies change in vision ENT: Reports system reviewed and no additional complaints, except as documented, Denies dizziness, Denies headache(s), Denies nasal congestion, Denies nasal discharge and Denies neck pain Cardiovascular: Cardiovascular: Reports no additional cardiovascular complaints, Denies chest pain, Denies leg edema and Denies dyspnea Respiratory: Respiratory: Reports no additional respiratory complaints, Denies cough and Denies dyspnea Gastrointestinal: Gastrointestinal: Reports no additional gastrointestinal complaints, Reports abdominal pain, Denies melena, Denies hematochezia, Denies diarrhea, Denies nausea and Denies vomiting Comments: +rectal bleeding Genitourinary: Genitourinary: Denies urinary incontinence Musculoskeletal: Musculoskeletal: Reports no additional musculoskeletal complaints, Denies back pain, Denies arthralgias, Denies joint swelling, Denies neck pain, Denies numbness and Denies tingling Integumentary/Breasts: Skin/Breast: Reports system reviewed and no additional complaints, except as docu and Denies rash Neurologic: Reports system reviewed and no additional complaints, except as documented, Denies Abnormal speech present, Denies dizziness, Denies headache(s), Denies numbness, Denies tingling and Denies weakness PMFSH Past Medical History Attestation statement: The following information was validated with the patient. Source: old records reviewed and nursing notes reviewed Medical History GERD (gastroesophageal reflux disease) No known health problems Social History Social History Housing: House Alcohol intake: current Alcohol intake frequency: holidays/special occasions only Patient Tobacco Use Status: Never used Tobacco Tobacco use type: Smokeless Tobacco e-Cigarette/Vaping Use: Never Used Substance Use Type: Marijuana Advance Directives: No Advance Directives Information Provided: Yes service: No Current occupational status: employed Current occupation: right handed Physical Exam Vital Signs: Vital Signs: Last Vital Signs Temp 98.5 F 07/30/22 13:51 Pulse 72 07/30/22 13:51 Resp 14 07/30/22 13:51 BP 137/92 H 07/30/22 13:51 Pulse Ox 100 07/30/22 13:51 O2 Del Method 03/09/23 13:51 BMI result Body Mass Index 25.8 Const: General: cooperative, healthy appearing, comfortable and no acute distress Orientation/consciousness: patient oriented x3 Limitations: no limitations HEENT: Head: Yes normal to inspection Ears: hearing grossly normal bilaterally General nose exam: Normal external nose present Face and sinus: Yes normal facial exam Mouth: Normal oral and palatal mucosa present Throat: Yes posterior oropharynx normal Eyes: General: appearance normal, both eyes and all related structures Pupils: Equal, round and reactive pupils present Neck: Neck: Yes normal visual inspection Chest: Chest palpation & inspection: normal inspection of the chest Resp: Effort & Inspection: normal respiratory effort Auscultation: clear to auscultation bilaterally Cardio: Rate: regular rate Rhythm: regular rhythm Peripheral pulses: Peripheral pulses 2+ throughout 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 Inspection: Yes normal to inspection Palpation (GI): Soft to palpation and nontender Auscultation: normal bowel sounds Rectal Exam - Male: Yes visual inspection normal, Yes abnormal sphincter tone and Yes heme negative stool Back/Spine/Pelvis: Thoracic/Lumbar Spine: thoracic and lumbar spine normal to inspection Skin: General skin exam: no rashes or lesions noted Neuro: General: patient oriented x3, no focal motor deficits and normal sensation to monofilament Cranial nerves: Yes Equal, round and reactive pupils present Cognition (Neuro): normal cognition Speech: No Abnormal speech present Gait exam (Neuro): Normal gait present Motor exam (neuro): 5/5 motor strength present throughout Extrem: General: Yes normal to inspection Course Course Course Narrative: Labs are unremarkable. Abdomen soft and nontender. Doubt intra-abdominal pathology. No additional episodes here. Doubt GI bleed. Patient placed on a bowel regimen. I recommend that he follow up with Gastroenterology outpatient. Patient recommended to return for any worsening signs or symptoms. Comfortable plan for discharge home. Medical Decision Making Medical Decision Making MDM Narrative: This 37-year-old male who presents with complaints of 3 days of abdominal cramping and rectal bleeding which began after having some constipation and straining to move his bowels. Patient reports history of chronic constipation with intermittent rectal bleeding in the past. No red flag symptoms such as associated vomiting, weight loss, night sweats, history of AC therapy use, history or family history of IBD, recent travel, sick contact. On exam abdomen soft nontender. Rectal exam normal with no bleeding seen. Will obtain labs Differential Diagnosis Differential Diagnoses: The differential diagnosis associated with the presentation includes Less likely GI bleed, ischemic colitis Likely hemorrhoid, constipation Lab Data MDM Lab Attestation statement: I reviewed the patient's lab results. 07/30/22 10:56 07/30/22 10:56 Labs: Lab Results 07/30/22 07/30/22 Range/Units 10:56 10:56 WBC 6.2 (4.8-10.8) X10*3/uL RBC 5.34 (4.60-5.80) X10*6/uL Hgb 15.4 (14.0-18.0) g/dl Hct 47.7 (42.0-52.0) % MCV 89.3 (80.0-98.0) fL MCH 28.8 (27.0-33.0) pg MCHC 32.3 (31.0-36.0) g/dl RDW 14.2 (11.0-16.0) % Plt Count 115 L (160-400) X10*3/uL MPV 12.3 (9.4-12.4) fL Immature Gran % (Auto) 0.2 (0.0-0.4) % Neut % (Auto) 68.3 (45-73) % Lymph % (Auto) 24.2 (20-40) % [place] % (Auto) 6.3 (2-11) % Eos % (Auto) 0.5 (0-4) % Baso % (Auto) 0.5 (0-2) % Lymph # (Auto) 1.5 (1.2-4.9) X10*3/uL [place] # (Auto) 0.4 (0.1-1.2) X10*3/uL Eos # (Auto) 0.0 (0.0-0.4) X10*3/uL Baso # (Auto) 0.0 (0.0-0.2) X10*3/uL Abs Immat Gran (auto) 0.01 (0.00-0.03) X10*3/uL Absolute Neuts (auto) 4.2 (2.0-8.3) x10*3/uL Absolute Nucleated RBC 0.000 (0.0-0.012) X10*3/uL Nucleated RBC % (auto) 0.0 (0.0-0.2) /100WBC Sodium 142 (135-145) mmol/L Potassium 4.2 (3.3-5.1) mmol/L Chloride 107 (96-108) mmol/L Carbon Dioxide 26 (22-29) mmol/L Anion Gap 13 (12-20) BUN 14 (9-16) mg/dL Creatinine 1.05 (0.5-1.4) mg/dL Estim Creat Clear Calc 93.1 Estimated GFR > 60 Random Glucose 106 (60-115) mg/dL Calcium 9.2 (8.4-10.2) mg/dL Total Bilirubin 0.9 (0.0-1.0) mg/dL Direct Bilirubin 0.3 (0.0-0.5) mg/dL AST 14 (5-37) U/L ALT 10 (0-40) U/L Alkaline Phosphatase 62 (39-117) U/L Total Protein 6.6 (6.5-8.0) g/dL Albumin 4.5 (3.5-5.0) g/dL Lipase 16 (8-78) U/L Discharge Plan Discharge Clinical Impression: Rectal bleed Patient Disposition: Home, Self-Care Instructions: Rectal Bleeding (ED) Additional Instructions: Your blood work is reassuring Start the bowel regimen we spoke about You may have some bleeding over the next day or two. Return for any worsening symptoms. Follow up with GI-call your PCP for a referral. Prescriptions: New polyethylene glycol 3350 [Miralax] 17 gram powder in packet 17 g PO DAILY Qty: 30 0RF docusate sodium [Colace] 100 mg capsule 100 mg PO BID Qty: 60 0RF No Action naproxen 500 mg tablet 500 mg PO BID PRN (Reason: pain) Qty: 30 0RF lidocaine 5 % adhesive patch,medicated 2 patch topical DAILY Qty: 30 0RF Rx Instructions: leave on most painful area for up to 12 hrs ibuprofen 600 mg tablet 600 mg PO Q8H PRN (Reason: fever or pain) Qty: 30 0RF trazodone 50 mg tablet 50 mg PO BEDTIME PRN (Reason: insomnia) cyclobenzaprine 10 mg tablet 10 mg PO TID PRN (Reason: muscle spasm) Qty: 20 0RF hydroxyzine HCl 25 mg tablet 25 mg PO BID PRN (Reason: anxiety) Qty: 10 0RF Referrals: Ian Garcias MD [Primary Care Provider] - 5 days Enrico Trinh MD [Physician] - 10 days Interventions: ED Discharge Assessment Last Done: 07/30/22 16:48 Discharge Date/Time: 07/30/22 16:49
[2022-07-30 13:51] VITALS: BP 137/92; PULSE 72; RESP 14; TEMP 36.9; O2SAT 100
[2022-07-30 16:37] LABS: Alanine Aminotransferase 10 U/L (0-40); Albumin Level 4.5 g/dL (3.5-5.0); Alkaline Phosphatase 62 U/L (39-117); Anion Gap 13 (12-20); Aspartate Amino Transferase 14 U/L (5-37); Bilirubin Direct 0.3 mg/dL (0.0-0.5); Bilirubin Total 0.9 mg/dL (0.0-1.0); Blood Urea Nitrogen 14 mg/dL (9-16); Calcium 9.2 mg/dL (8.4-10.2); Carbon Dioxide 26 mmol/L (22-29); Chloride 107 mmol/L (96-108); Creatinine Clr Calc Pharmacy 93.1; Estimated Glomerular Filt Rate > 60; Glucose Random 106 mg/dL (60-115); Lipase 16 U/L (8-78); Potassium 4.2 mmol/L (3.3-5.1); Sodium 142 mmol/L (135-145); Total Protein 6.6 g/dL (6.5-8.0)
== END 2022-07-30 16:49 | disposition home or self-care (01) ==
PROVIDERS: Emergency Provider Emergency Medicine Emergency Medical Services; PCP Family Medicine
DX: K62.5 Hemorrhage of anus and rectum (principal); R25.2 Cramp and spasm; Z79.899 Other long term (current) drug therapy
CPT/HCPCS: 36415; 80053; 82248; 83690; 85025; 99283

== ENCOUNTER → 2022-08-26 10:53 | Outpatient (BNVA) | payer OTHER, SELFPAY | PROVIDERS: PCP Family Medicine; Visit Provider Physician Assistant | DX: K62.5 Hemorrhage of anus and rectum (principal); K59.09 Other constipation; K21.9 Gastro-esophageal reflux disease without esophagitis; D69.6 Thrombocytopenia, unspecified | CPT/HCPCS: 99202 ==

== ENCOUNTER 2022-09-06 | Outpatient (REF) | payer OTHER, SELFPAY | END 2022-09-06 00:01 | disposition home or self-care (01) | LOC: HO.LNP | PROVIDERS: Visit Provider Physician Assistant | DX: A04.8 Other specified bacterial intestinal infections (principal) | CPT/HCPCS: 87338 ==

== ENCOUNTER 2022-09-08 13:35 | Outpatient (REF) | payer OTHER, SELFPAY ==
--- NOTE | ~2022-09-08 | XR_ITS ---
EXAMINATION: XR LUMBOSACRAL SPINE CLINICAL INFORMATION: Radiculopathy. COMPARISON: CT abdomen/pelvis 03/01/2019. TECHNIQUE: Three views of the lumbosacral spine. FINDINGS: No acute fractures or subluxation. Mild intervertebral disc height loss and facet arthropathy at L5-S1. SI joints are symmetric. Pubic symphysis is maintained. No significant paraspinal soft tissue abnormalities. XR/XR lumbar spine 2-3V IMPRESSION: 1. No acute fractures or subluxation. 2. Mild spondylosis at L5-S1.
--- NOTE | ~2022-09-08 | XR_ITS ---
EXAMINATION: XR HIP, RIGHT CLINICAL INFORMATION: Pain. COMPARISON: None available. TECHNIQUE: Two views of the right hip. FINDINGS: Bones and soft tissues are normal. No fracture. Alignment is anatomic. Hip joint space is maintained. XR/XR hip RT w PEL1V IMPRESSION: Normal right hip.
== END 2022-09-08 13:36 | disposition home or self-care (01) ==
LOC: HO.XRAY 13:35
PROVIDERS: PCP Family Medicine; Visit Provider Hospitalist
DX: M54.16 Radiculopathy, lumbar region (principal); M25.552 Pain in left hip; M25.551 Pain in right hip
CPT/HCPCS: 72100; 73502

== ENCOUNTER → 2022-09-10 12:11 | Outpatient (BNVA) | payer OTHER, SELFPAY | PROVIDERS: PCP Family Medicine; Visit Provider Physician Assistant | DX: K59.09 Other constipation (principal); K21.9 Gastro-esophageal reflux disease without esophagitis; D69.6 Thrombocytopenia, unspecified; Z79.52 Long term (current) use of systemic steroids | CPT/HCPCS: 99212 ==

== ENCOUNTER → 2022-11-20 13:04 | Outpatient (BNVA) | payer OTHER, SELFPAY | PROVIDERS: PCP Family Medicine; Visit Provider Registered Nurse Emergency | DX: M53.3 Sacrococcygeal disorders, not elsewhere classified (principal); M47.816 Spondylosis without myelopathy or radiculopathy, lumbar region | CPT/HCPCS: 99202 ==

== ENCOUNTER 2022-12-02 16:05 | Outpatient (AMB) | payer OTHER, SELFPAY ==
[2022-12-02 16:07] VITALS: BP 132/88; PULSE 101; O2SAT 99; BMI 26.1
--- NOTE | 2022-12-02 16:07 | MHC.PC.OV ---
Vital Signs 12/02/22 16:07 Height 5 ft 10 in Weight 182 lb BMI 26.1 BP 132/88 Blood Pressure Location Lt brachial Position Sitting Pulse 101 H Pulse Source Pulse Oximeter Pulse Oximetry (%) 99 Oxygen Delivery Method Room Air Intake Visit Reasons: f/u back pain Intake Note: Patient is here to follow up on back pain. He also would also like to discuss taking Rovatio, because his insurance does not cover Sildenafil. Allergies No Known Allergies [No Known Allergies*] Allergy (Mild, Verified 12/02/22 16:11) NOT APPLICABLE Tobacco use date assessed: 11/16/22 Dental Screening Dental Screen Date: 12/02/22 Did you have a dental visit in the last 12 months?: Yes Did you have a dental problem in the last 6 months where you did not have access to dental care?: No Was dental information given to patient?: No HPI f/u back pain HPI Details 37 y/o male presents to f/u back pain. Had seen pain management 11/20/22. Trialing baclofen 5mg b.i.d. They had ordered PT eval/treat. Pt had been willing to proceed with fluoroscopy guided diagnostic R SI joint injection. PFSH Medical History GERD (gastroesophageal reflux disease) Low platelet count No known health problems Family History Unknown No family history of colorectal cancer Social History Housing: House Alcohol intake: current Alcohol intake frequency: holidays/special occasions only Patient Tobacco Use Status: Former Tobacco user Tobacco use type: Smokeless Tobacco Cigarette Packs Per Day: 0.5 Cigarettes Per Day: 12 Years Smoked: 10 e-Cigarette/Vaping Use: Never Used Second Hand Smoke Exposure: No Substance Use Type: Marijuana service: No Current occupational status: unemployed Cognitive needs: No Hearing needs: No Vision needs: No Questionnaire Thrive Questionnaire Date Thrive assessed: 10/06/22 KELLY-7 AMB Questionnaire KELLY-7 Date KELLY - 7 assessed: 10/06/22 Source: Developed by Drs. Brandon Goodman, Chantelle Reaves, Jim Valenzuela and colleagues, with an educational uri from [employer]. Review of Systems Const Denies chills, Denies fatigue, Denies fever(s), Denies headache(s) and Denies weakness ENT Denies dizziness and Denies headache(s) Card Denies dyspnea Resp Denies cough, Denies dyspnea, Denies wheezing and Denies other (shortness of breath) Musc Denies numbness and Denies tingling Neuro Denies dizziness, Denies headache(s), Denies numbness, Denies tingling and Denies weakness Psych Denies anxiety and Denies depression Endo Denies fatigue Aller/Immun Denies wheezing Physical exam (Primary Care) Vital Signs: Last Vital Signs Pulse 101 H 12/02/22 16:07 BP 132/88 12/02/22 16:07 Pulse Ox 99 12/02/22 16:07 Oxygen Delivery Method Room Air 12/02/22 16:07 BMI result Body Mass Index 26.1 Tobacco/Smoking Status: Tobacco use Status Tobacco use date assessed 11/16/22 12/02/22 16:14 Patient Tobacco Use Status Former Tobacco user 12/02/22 16:14 Tobacco use type Smokeless Tobacco 12/02/22 16:14 e-Cigarette/Vaping Use Never Used 12/02/22 16:14 Thrive Assessment: Date of Thrive Assessment Date Thrive assessed 10/06/22 12/02/22 16:14 Const General: well developed; No acute distress Nutritional Appearance: well nourished Orientation/consciousness: patient oriented x3 HENMT Head: Yes normocephalic and Yes atraumatic Eyes General: appearance normal, both eyes and all related structures Pupils: Equal, round and reactive pupils present EOM: EOMs intact bilaterally Resp Effort & Inspection: normal respiratory effort Neuro General: patient oriented x3 and gait normal Cranial nerves: Yes Equal, round and reactive pupils present Psych Affect: normal affect Assessment and Plan Assessment & Plan (1) Low back pain: Code(s): M54.50 - Low back pain, unspecified Plan: Ongoing low back pain and patient has failed conservative treatments. He was referred to pain management and had an extensive workup. They have discussed multiple modalities for pain relief and are planning a fluoroscopic guided lidocaine injection for diagnosis and will then decide on the best route of treatment. I had also prescribed duloxetine to help with both anxiety and depression as well as pain but he has not begun this yet. He can begin this this weekend. He is still working and I recommended we limit his work to 20 hours per week and limit lifting to not more than 40 lb though we may need to adjust this lower. Will continue this for a period of 3 months and re-evaluate prior to the end of that period. If significantly improved by pain management, he can return to me sooner for re-evaluation. Will write him a letter to this effect and we can fill out disability forms as needed by his employer. (2) Sacroiliac dysfunction: Code(s): M53.3 - Sacrococcygeal disorders, not elsewhere classified Plan: As above (3) Anxiety and depression: Code(s): F41.9 - Anxiety disorder, unspecified; F32.A - Depression, unspecified Plan: As above, he will try duloxetine. Coding Level of Care Code Est Pt Level 3 (90139) Diagnoses Low back pain M54.50 Sacroiliac dysfunction M53.3 Anxiety and depression F41.9; F32.A
== END 2022-12-02 16:58 | disposition home or self-care (01) ==
PROVIDERS: PCP Family Medicine; Visit Provider Family Medicine
DX: M54.50 Low back pain, unspecified (principal); M53.3 Sacrococcygeal disorders, not elsewhere classified; F41.9 Anxiety disorder, unspecified; F32.A Depression, unspecified
CPT/HCPCS: 99213

== ENCOUNTER 2023-01-16 09:22 | Outpatient (AMB) | payer OTHER, SELFPAY ==
[2023-01-16 09:45] VITALS: BP 138/88; PULSE 69; O2SAT 99
--- NOTE | 2023-01-16 09:45 | AM.OFFWIN_ITS ---
Intake Vital Signs 01/16/23 09:45 Height 5 ft 10 in BMI Reason not done Patient refused/unable BP 138/88 Blood Pressure Location Lt brachial Position Sitting Pulse 69 Pulse Source Pulse Oximeter Pulse Oximetry (%) 99 Oxygen Delivery Method Room Air Intake Visit Reasons: Rt side of back through rt leg pain Intake Note: Patient is here with back pain flare up for 3 months, aleveiates for 3 days, then flares up again. Patient Tobacco Use Status: Former Tobacco user Allergies No Known Allergies [No Known Allergies*] Allergy (Mild, Verified 01/16/23 09:46) NOT APPLICABLE Do you need a note to return to daycare/school/sports/work: Yes HPI HPI Comments History of Present Illness Details This is a 37-year-old male who presents to the office today for sick visit. Patient complaining of acute on chronic right-sided low back pain with lumbar radiculopathy x3 months but significantly worse in the past 1 week. Patient is followed by the [facility], but does not have an appointment until 3 days from now. He states he is unable to walk, unable to care for his children, and unable to do his activities of daily living due to his pain. He denies any fever/chills, bowel/bladder incontinence/retention, or saddle anesthesias. He denies any new trauma or injury to the area. He has been utilizing his prescription medications including baclofen, cyclobenzaprine, duloxetine, gabapentin, and meloxicam without much relief. [facility]LY [facility], [facility] Medical History GERD (gastroesophageal reflux disease) Low platelet count No known health problems Family History Unknown No family history of colorectal cancer Social History Housing: House Alcohol intake: current Alcohol intake frequency: holidays/special occasions only Patient Tobacco Use Status: Former Tobacco user Tobacco use type: Smokeless Tobacco Cigarette Packs Per Day: 0.5 Cigarettes Per Day: 12 Years Smoked: 10 e-Cigarette/Vaping Use: Never Used Second Hand Smoke Exposure: No Substance Use Type: Marijuana service: No Current occupational status: unemployed Cognitive needs: No Hearing needs: No Vision needs: No Review of Systems Const All systems reviewed & are unremarkable except as noted in HPI and below Reports no additional complaints Eyes Reports no additional complaints ENT Reports no additional complaints Card Reports no additional complaints Resp Reports no additional complaints GI Reports no additional complaints Reports no additional complaints Musc Reports no additional complaints Skin/Breast Reports system reviewed and no additional complaints, except as documented Neuro Reports no additional complaints Psych Reports no additional complaints Endo Reports no additional complaints Srinivasan/Lymph Reports no additional complaints Aller/Immun Reports no additional complaints Physical Exam Vital Signs: Last Vital Signs Pulse 69 01/16/23 09:45 BP 138/88 01/16/23 09:45 Pulse Ox 99 01/16/23 09:45 Oxygen Delivery Method Room Air 01/16/23 09:45 Const General: cooperative, healthy appearing, no acute distress and well developed Orientation/consciousness: patient oriented x3 HEENT Head: Yes normal to inspection Ears: hearing grossly normal bilaterally General nose exam: Normal external nose present Face and sinus: Yes normal facial exam Mouth: Normal oral and palatal mucosa present Eyes General: appearance normal, both eyes and all related structures Pupils: Equal, round and reactive pupils present EOM: EOMs intact bilaterally Resp Effort & Inspection: normal respiratory effort and no respiratory distress Auscultation: clear to auscultation bilaterally Cardio Rate: regular rate Rhythm: regular rhythm Heart sounds: no gallops, no murmurs and no rubs Peripheral pulses: Peripheral pulses 2+ throughout GI Inspection: No distended Palpation (GI): Soft to palpation and nontender Auscultation: normal bowel sounds Back/Spine/Pelvis Other: Diffuse tenderness to palpation of the right lower back. Patient sitting in a wheelchair and unable to perform most range of motion due to pain. Unable to perform straight leg raise due to pain. Skin General skin exam: no rashes or lesions noted Neuro General: patient oriented x3 Cranial nerves: Yes CN's II-XII intact bilaterally and Yes Equal, round and reactive pupils present Gait exam (Neuro): Normal gait present Motor exam (neuro): 5/5 motor strength present throughout Extrem General: Yes normal to inspection, Yes full ROM and Yes no clubbing, cyanosis or edema Psych Other: Patient is extremely tearful on exam. Appearance: well kempt Mental Status: mental status grossly normal Assessment & Plan Assessment & Plan (1) Acute exacerbation of chronic low back pain: Code(s): M54.50 - Low back pain, unspecified; G89.29 - Other chronic pain Plan: This is a 37-year-old male with past medical history significant for chronic low back pain and lumbar radiculopathy who presents in the setting of acute on chronic low back pain. Patient has an appointment scheduled with Pain Management in 3 days from now. He states he was unable to tolerate the pain as he is unable to walk, unable to care for his children, and unable to perform his activities of daily living due to the pain. Encouraged patient to continue with his prescription medications as prescribed by pain management. I will also send p.o. prednisone care 40 mg daily x5 days to treat acute exacerbation of chronic low back pain. I have also sent 3 tablets of p.o. tramadol 50 mg so patient can have some relief of pain until his pain management clinic. I explained that tramadol can be addicting and is an opioid derivative. Patient was made aware that opioid medications are not usually use for chronic pain and he seemed to understand. Patient states he has been on it before and it seems to help with his pain. I advised patient not to utilize tramadol while driving or caring for his children. Patient verbalizes understanding and he is in agreement with the plan. Medications: New tramadol 25 mg (1/2 x 50 mg) PO BID 3 days PRN 3 tabs 0RF severe pain prednisone 40 mg (2 x 20 mg) PO DAILY 10 tabs 0RF cane As directed 1 ea 0RF Refilled prednisone 40 mg (2 x 20 mg) PO DAILY 10 tabs 0RF M54.16 - Radiculopathy, lumbar region Coding Level of Care Code Est Pt Level 3 (53211) Diagnoses Acute exacerbation of chronic low back pain M54.50; G89.29
== END 2023-01-16 10:26 | disposition home or self-care (01) ==
PROVIDERS: PCP Family Medicine; Visit Provider Physician Assistant Medical
DX: M54.50 Low back pain, unspecified (principal); G89.29 Other chronic pain
CPT/HCPCS: 99051; 99213

== ENCOUNTER 2023-01-19 05:54 | Outpatient (REF) | payer OTHER, SELFPAY ==
--- NOTE | ~2023-01-19 | FL_ITS ---
EXAMINATION: XR FLUOROSCOPY WITH IMAGES CLINICAL INFORMATION: Sacrococcygeal disorders, not elsewhere classified. COMPARISON: None available. TECHNIQUE: Fluoroscopy Supervised By: Dr. Fidel Rivera. Fluoroscopy Time: 0.3 minutes. Cumulative Dose: 3.18 mGy. DAP: 0.0552 Gycm2. Images: 2. FINDINGS: Images demonstrate needle placement and contrast injection of the bilateral sacroiliac joints. FL/FL guidance in treatment room IMPRESSION: Fluoroscopy guidance for sacroiliac joint injections
== END 2023-01-19 05:55 | disposition home or self-care (01) ==
LOC: CF 05:54
PROVIDERS: Visit Provider Anesthesiology
DX: M53.3 Sacrococcygeal disorders, not elsewhere classified (principal); M47.816 Spondylosis without myelopathy or radiculopathy, lumbar region
CPT/HCPCS: J2795; Q9967

== ENCOUNTER 2023-01-19 07:24 | Outpatient (AMB) | payer OTHER, SELFPAY ==
[2023-01-19 07:27] VITALS: BP 126/84; PULSE 92; RESP 16; O2SAT 100; BMI 26.1
--- NOTE | 2023-01-19 07:27 | MHC.OFFVIS ---
Intake Vital Signs 01/19/23 07:27 01/19/23 08:03 01/19/23 08:04 Height 5 ft 10 in 5 ft 10 in Weight 182 lb BMI 26.1 26.1 BP 126/84 124/80 Blood Pressure Location Lt brachial Lt brachial Position Sitting Sitting Respiration 16 16 Pulse 92 88 Pulse Source Pulse Oximeter Pulse Oximeter Pulse Oximetry (%) 100 98 Oxygen Delivery Method Room Air Room Air Comment Pre-Op post op Intake Visit Reasons: BILAT DX SIJ INJ/LOCAL Allergies No Known Allergies [No Known Allergies*] Allergy (Mild, Verified 01/19/23 07:28) NOT APPLICABLE FOR[facility]LY [facility] Medical History GERD (gastroesophageal reflux disease) Low platelet count No known health problems Family History Unknown No family history of colorectal cancer Social History Housing: House Alcohol intake: current Alcohol intake frequency: holidays/special occasions only Patient Tobacco Use Status: Former Tobacco user Tobacco use type: Smokeless Tobacco Cigarette Packs Per Day: 0.5 Cigarettes Per Day: 12 Years Smoked: 10 e-Cigarette/Vaping Use: Never Used Second Hand Smoke Exposure: No Substance Use Type: Marijuana service: No Current occupational status: unemployed Cognitive needs: No Hearing needs: No Vision needs: No Physical Exam Vital Signs: Last Vital Signs Pulse 92 01/19/23 07:27 Resp 16 01/19/23 07:27 BP 126/84 01/19/23 07:27 Pulse Ox 100 01/19/23 07:27 Oxygen Delivery Method Room Air 01/19/23 07:27 BMI result Body Mass Index 26.1 Assessment & Plan Assessment & Plan (1) Sacroiliac dysfunction: Code(s): M53.3 - Sacrococcygeal disorders, not elsewhere classified Plan: Bilateral diagnostic sacroiliac joint injection Informed consent was explained thoroughly to the patient. All questions about benefits and risks for the procedure were answered. Patient came to the operating room and was positioned prone on the operating table with the pillow under the pelvis. [employer] monitors were applied and patient was deeply sedated. Time out was performed delineating name and of the patient, allergies and the nature of the procedure. The lower back and buttocks of the patient were prepped with ChloraPrep prepped and draped with sterile utility towels. C-arm was brought over the operating field and sq picture of patient's pelvis was demonstrated on the screen. First for the right joint tilting C-arm contralateral to the site of the joint the most posterior portion of the joints was superimposed with anterior silhouette of the joint. Skin was injected in the projection of the joint slightly medial to the location of the joint with 25 gauge 1/2 inch needle using local lidocaine 2% .After that 22 gauge 3 and 1/2 inch needle was driven to the right joint in tunnel vision fashion. When needle entered the joint capsule injection of the contrast was performed demonstrating intra-articular and minimally periarticular spread of the contrast. After that 4 cc. of ropivacaine 0.5% was injected into the joint. Upon completion of the injections the needle was removed and attention was focused on the contralateral joint where the procedure was performed in the mirrroring fashion. Sterile dressings were applied upon completion of the procedure.. Upon completion of the injection patient was taken outside of the operating room to the recovery room where recovered uneventfully. (2) Facet arthritis of lumbar region: Code(s): M47.816 - Spondylosis without myelopathy or radiculopathy, lumbar region Joe Brooks is a very pleasant 37-year-old male who present to the office today for evaluation and management of his chronic lower back pain. Patient has exhausted conservative therapy including PT, heat, ice, lidocaine patches, NSAIDs, muscle relaxers and gabapentin. He has also had injections, he believes steroid injections, approximately 10 years ago to his back that exacerbated his pain in left him unable to get a bed for several days both times. History, physical exam and provocative testing consistent with right sacroiliac joint dysfunction and lumbar facet arthropathy. Patient stated he would like to continue care here as opposed to [facility] and would like to move his PT to [facility] and will cancel existing order that was placed at recent visit with [facility]. Discussed options for treatment including diagnostic interventional testing, epidural steroid injections, peripheral nerve stimulation with Sprint, RFA and more permanent neuromodulation. Informational pamphlets provided. Will trial baclofen 5mg po bid, patient will hold cyclobenzaprine while taking this medication. Patient has been using a back brace, advised patient to use only when absolutely needed as this will cause weakened core muscles. He is willing to try PT again for SI joint dysfunction and to improve core strength. Order for PT eval/treat has been placed. Patient has exhausted conservative therapy including multiple previous courses of PT, NSAIDS, muscle relaxers, topical medications and steroid injections. He is hesitant but after thorough explanation of intervention options offered here patient is willing to proceed with fluoroscopy guided diagnostic right SI joint injection with local anesthetic. All questions and concerns have been answered and patient agrees with the plan. Follow up after injections and sooner if needed. Orders: Orders FL guidance in treatment room Today M53.3 - Sacrococcygeal disorders, not elsewhere classified Coding Level of Care Code Procedure Only Diagnoses Sacroiliac dysfunction M53.3 Facet arthritis of lumbar region M47.816
[2023-01-19 08:03] VITALS: BP 124/80; PULSE 88; RESP 16; O2SAT 98
--- NOTE | 2023-01-19 08:03 | MHC.OFFVIS ---
Intake Vital Signs 01/19/23 07:27 01/19/23 08:03 Height 5 ft 10 in 5 ft 10 in Weight 182 lb BMI 26.1 BP 126/84 124/80 Blood Pressure Location Lt brachial Lt brachial Position Sitting Sitting Respiration 16 16 Pulse 92 88 Pulse Source Pulse Oximeter Pulse Oximeter Pulse Oximetry (%) 100 98 Oxygen Delivery Method Room Air Room Air Comment Pre-Op post op Intake Visit Reasons: BILAT DX SIJ INJ/LOCAL Allergies No Known Allergies [No Known Allergies*] Allergy (Mild, Verified 01/19/23 07:28) NOT APPLICABLE [facility] Medical History GERD (gastroesophageal reflux disease) Low platelet count No known health problems Family History Unknown No family history of colorectal cancer Social History Housing: House Alcohol intake: current Alcohol intake frequency: holidays/special occasions only Patient Tobacco Use Status: Former Tobacco user Tobacco use type: Smokeless Tobacco Cigarette Packs Per Day: 0.5 Cigarettes Per Day: 12 Years Smoked: 10 e-Cigarette/Vaping Use: Never Used Second Hand Smoke Exposure: No Substance Use Type: Marijuana service: No Current occupational status: unemployed Cognitive needs: No Hearing needs: No Vision needs: No Physical Exam Vital Signs: Last Vital Signs Pulse 92 01/19/23 07:27 Resp 16 01/19/23 07:27 BP 126/84 01/19/23 07:27 Pulse Ox 100 01/19/23 07:27 Oxygen Delivery Method Room Air 01/19/23 07:27 BMI result Body Mass Index 26.1 Assessment & Plan Assessment & Plan Orders: Orders [place] guidance in treatment room Today M53.3 - Sacrococcygeal disorders, not elsewhere classified Quality Reporting (2019) Adult ([facility] 13807/15/68) Body Mass Index: 26.1 Coding Diagnoses
== END 2023-01-19 07:56 | disposition home or self-care (01) ==
PROVIDERS: PCP Family Medicine; Visit Provider Anesthesiology
DX: M53.3 Sacrococcygeal disorders, not elsewhere classified (principal); M47.816 Spondylosis without myelopathy or radiculopathy, lumbar region
CPT/HCPCS: 27096

== ENCOUNTER 2023-01-21 09:13 | Outpatient (AMB) | payer OTHER, SELFPAY ==
--- NOTE | 2023-01-21 09:19 | MHC.OFFVIS ---
Intake Vital Signs 01/21/23 09:26 Height 5 ft 10 in Weight 179 lb BMI 25.7 BP 128/90 H Blood Pressure Location Rt brachial Respiration 18 Pulse 100 Pulse Source Pulse Oximeter Pulse Oximetry (%) 99 Oxygen Delivery Method Room Air Intake Visit Reasons: BILAT DX SIJ INJ 01/19/23 Intake Note: patient comes in for post-op. Allergies No Known Allergies [No Known Allergies*] Allergy (Mild, Verified 01/21/23 09:26) NOT APPLICABLE HPI HPI Comments History of Present Illness Details Todd is back in my office after the diagnostic bilateral sacroiliac injection which was performed on him 2 days ago. He reports pain significant reduction he reports that he feel his regular pain reduced more than 50% after the injection. However he reports a new discomfort in the right lower extremity from the buttock to the back of the knee. He reports that bowel movements aggravate this pain. He reports that coughing and sneezing aggravate that pain. I suspect the patient might developed retroperitoneal hematoma after the injection. I need to perform CT scan without contrast to rule out retroperitoneal hematoma. I also would like to start him on antibiotics cephalexin to prevent possible infection in hematoma if this exists. To alleviate his pain I will start him on oxycodone 5 mg q.6 hours p.r.n. pain for 14 days. Prior: a pleasant 37-year-old male who presents to the office today for evaluation and management of his chronic lower back pain. Patient was referred here by his primary care doctor after recent visit. The patient reports 15 years of ongoing lower back pain after injury at work. had a slip and fall and since then he has suffered from excruciating right lower back pain. Patient reports pain radiates into his right buttocks and down the thigh. he has tried physical therapy, [id number] NSAIDs, muscle relaxers, heat, ice, topical medications including lidocaine patches and previous attempts at injections. None of these have helped with his pain. He states that approximately 10 years ago he had 2 injections at [place] and both of them worsen his pain and ultimately he was nearly bedridden for about 5 days after due to exacerbation of the pain. Patient was recently evaluated at [facility] and is scheduled to start physical therapy at a place in [place] and was prescribed meloxicam. He currently takes cyclobenzaprine with minimal effect. He does take gabapentin at bedtime to help with sleep. Pain is exacerbated with long car rides, sitting, standing, climbing stairs, and lying down. He reports that if he walks it will get a little better. Patient reports that his pain is impacting his ability to sleep, perform activities of daily living, care for himself, function normally and engage in social activities. He states he is starting to feel a decline in his mental health due to his chronic pain. He denies thoughts of hurting self or others. He recently lost a job that he enjoyed because he had to take time off due to his pain. He currently works at [employer] which he does not enjoy. He has imaging including MRI of his back at [facility]. Release signed today for record request. Past medical history consistent with anxiety, depression and GERD. The patient had implantable devices, pacemaker, defibrillator. Patient denies tobacco use, endorses social alcohol use and marijuana use. [facility] Medical History GERD (gastroesophageal reflux disease) Low platelet count No known health problems Family History Unknown No family history of colorectal cancer Social History Housing: House Alcohol intake: current Alcohol intake frequency: holidays/special occasions only Patient Tobacco Use Status: Former Tobacco user Tobacco use type: Smokeless Tobacco Cigarette Packs Per Day: 0.5 Cigarettes Per Day: 12 Years Smoked: 10 e-Cigarette/Vaping Use: Never Used Second Hand Smoke Exposure: No Substance Use Type: Marijuana service: No Current occupational status: unemployed Cognitive needs: No Hearing needs: No Vision needs: No Review of Systems Const All systems reviewed & are unremarkable except as noted in HPI and below Physical Exam Vital Signs: Last Vital Signs Pulse 100 01/21/23 09:26 Resp 18 01/21/23 09:26 BP 128/90 H 01/21/23 09:26 Pulse Ox 99 01/21/23 09:26 Oxygen Delivery Method Room Air 01/21/23 09:26 BMI result Body Mass Index 25.7 Const General: cooperative Orientation/consciousness: patient oriented x3 Chest Chest palpation & inspection: normal inspection of the chest Resp Effort & Inspection: normal respiratory effort, able to speak in complete sentences, abnormal respiratory pattern, no audible wheezes, no cough and respiratory effort not decreased Cardio Jugular venous distension: no JVD GI Inspection: Yes normal to inspection Back/Spine/Pelvis Other: Lumbar exam: Able to stand on bilateral tiptoes and bilateral heels. Able to transition from sit to stand unassisted. Ambulates with bilaterally normal heel strike and toe off Visual inspection without gross abnormality Tender to palpation over PSIS R>L, midline lumbar vertebrae and lumbar paraspinal muscles ROM: extension to 20 degrees. flexion to 90 degrees Strength: 5/5 BLE Sensation: intact and symmetric BLE DTR: intact and symmetric Straight leg raises with and without dorsiflexion positive on right for increased pain over PSIS without radiculopathy, negative on left Facet loading positive bilaterally KIM positive R>L SI compression positive R>L Thigh thrust positive R>L Gaenslens positive R>L Neuro General: patient oriented x3 Psych Affect: normal affect Attitude: cooperative Thought process: Normal thought process present Thought content: Normal thought content present Insight: Good insight present (Psych) Judgement: Good judgement present (Psych) Assessment & Plan Assessment & Plan (1) Retroperitoneal hematoma: Code(s): K66.1 - Hemoperitoneum (2) Facet arthritis of lumbar region: Code(s): M47.816 - Spondylosis without myelopathy or radiculopathy, lumbar region (3) Sacroiliac dysfunction: Code(s): M53.3 - Sacrococcygeal disorders, not elsewhere classified (4) Anxiety and depression: Code(s): F41.9 - Anxiety disorder, unspecified; F32.A - Depression, unspecified (5) Right lumbar radiculitis: Code(s): M54.16 - Radiculopathy, lumbar region (6) Low platelet count: Comment: LP reviewed since 2019 Neg viral serologies and HIV may be hemorrhoid? Intermittent epistaxis Code(s): D69.6 - Thrombocytopenia, unspecified Plan This patient has relatively decreased level of platelets to [id number]. On itself it is not contraindication for the procedures however with procedures he had performed retroperitoneal hematoma cannot be excluded. He reports exacerbation of the pain on coughing and sneezing as well as exacerbation of the pain with bowel movements. I wants to perform urgent CT scan to rule out potential retroperitoneal hematoma, and if hematoma exists I will continue diagnostic studies to make sure that the size of the collection does not increase. To alleviate his pain I will start him on small dose of oxycodone 5 mg q.6 hours for the next 14 days. I will also start him on antibiotic cephalexin 750 mg to prevent potential infection in the site of the hematoma. He will take also probiotics OTC in between the doses of the antibiotics. I will see him after urgency CT will be available. Orders: Orders CT pelvis wo IV con Today K66.1 - Hemoperitoneum Medications: New oxycodone Partial Fill upon patient request. 5 mg PO Q6H 14 days PRN 56 caps 0RF postoperative pain cephalexin take probiotics OTC 25 billion cultures in between the doses of antibiotics with food 750 mg PO TID 14 days 42 caps 1RF Discontinued tramadol Discontinued Reason: Doctor's Order 25 mg (1/2 x 50 mg) PO BID 3 days PRN 3 tabs 0RF severe pain Coding Level of Care Code Est Pt Level 4 (63685) Diagnoses Retroperitoneal hematoma K66.1 Facet arthritis of lumbar region M47.816 Sacroiliac dysfunction M53.3 Anxiety and depression F41.9; F32.A Right lumbar radiculitis M54.16 Low platelet count D69.6
[2023-01-21 09:26] VITALS: BP 128/90; PULSE 100; RESP 18; O2SAT 99; BMI 25.7
== END 2023-01-21 09:27 | disposition home or self-care (01) ==
PROVIDERS: PCP Family Medicine; Visit Provider Anesthesiology
DX: K66.1 Hemoperitoneum (principal); M47.816 Spondylosis without myelopathy or radiculopathy, lumbar region; M53.3 Sacrococcygeal disorders, not elsewhere classified; F41.9 Anxiety disorder, unspecified; F32.A Depression, unspecified; M54.16 Radiculopathy, lumbar region; D69.6 Thrombocytopenia, unspecified
CPT/HCPCS: 99214

== ENCOUNTER → 2023-01-21 09:13 | Outpatient (BNVA) | payer OTHER, SELFPAY | PROVIDERS: PCP Family Medicine; Visit Provider Anesthesiology | DX: K66.1 Hemoperitoneum (principal); M47.26 Other spondylosis with radiculopathy, lumbar region; M53.3 Sacrococcygeal disorders, not elsewhere classified; D69.6 Thrombocytopenia, unspecified; F41.9 Anxiety disorder, unspecified; F32.A Depression, unspecified | CPT/HCPCS: 99212 ==

== ENCOUNTER 2023-01-21 15:02 | Outpatient (REF) | payer OTHER, SELFPAY ==
--- NOTE | ~2023-01-21 | CT_ITS ---
EXAMINATION: CT PELVIS WITHOUT CONTRAST CLINICAL INFORMATION: Hemoperitoneum. COMPARISON: Radiographs of pelvis and right hip from 09/08/2022. Fluoroscopic images of sacrum/sacroiliac joints from 01/19/2023. TECHNIQUE: Noncontrast multidetector CT imaging examination of the pelvis is performed. Axial images and multiplanar reformatted images are reviewed. This CT examination was performed using dose optimization techniques as appropriate, variously including the following: *Automated exposure control *Adjustment of mA and/or kV according to patient size (this includes techniques or standardized protocols for targeted exams where dose is matched to indication/reason for exam; i.e. extremities or head) *Use of iterative reconstruction technique DLP: 485 mGy-cm FINDINGS: There is no free fluid in the examined lower abdomen or pelvis. The visualized distal abdominal aorta is normal in caliber and fat planes are maintained around the visualized aorta and inferior vena cava. Also, no evidence of fat stranding around iliac or proximal femoral vessels. No dilated loops of bowel. Sigmoid colon and rectum are unremarkable. Urinary bladder is grossly normal. Prostate gland is unremarkable. No lymphadenopathy. The visualized abdominal wall is normal. No soft tissue hematoma in the abdominal wall or pelvic region. Pelvic bones and proximal femurs are intact. Transitional lumbosacral anatomy with presence of hypertrophied L5 transverse processes that articulate with the sacrum. The sacroiliac joints are normal. CT/CT pelvis wo IV con IMPRESSION: * No acute imaging abnormalities within the pelvis. * No evidence of soft tissue hematoma or hemoperitoneum.
== END 2023-01-21 15:03 | disposition home or self-care (01) ==
LOC: HO.CT 15:02
PROVIDERS: PCP Family Medicine; Visit Provider Anesthesiology
DX: K66.1 Hemoperitoneum (principal)
CPT/HCPCS: 72192

== ENCOUNTER 2023-02-03 10:01 | Outpatient (AMB) | payer OTHER, SELFPAY ==
--- NOTE | 2023-02-03 10:20 | A.OFFVIS_ITS ---
Intake Vital Signs 02/03/23 10:23 Height 5 ft 10 in Weight 177 lb BMI 25.4 BP 106/84 Blood Pressure Location Rt brachial Position Sitting Respiration 16 Pulse 107 H Pulse Source Pulse Oximeter Pulse Oximetry (%) 98 Oxygen Delivery Method Room Air Intake Visit Reasons: Discuss other options Intake Note: patient comes in to discuss other options for treatment. Allergies No Known Allergies [No Known Allergies*] Allergy (Mild, Verified 02/03/23 10:27) NOT APPLICABLE HPI HPI Comments History of Present Illness Details Todd davila back in my office after the diagnostic bilateral sacroiliac injection. It looks like that I missed understood this patient when I sent him for CT scan of the pelvis. Apparently his pain as his stated today in the lower back was old with radiating into bilateral lower extremities more to the right lower extremity. He corrected his statement from last time and he told me that the only new sensation he felt after the injection was the feeling of the knot in his posterior thigh. I cannot neck this feelings to anything but I have done for the patient. His is scan of the pelvis is also negative for any collection or hematoma. I have no explanation for him why he felt this knot in his posterior thigh but it is unlikely of any yatrogenic origin. I offered him to treat this condition to send him for physical therapy, I also offered him to start tizanidine muscle relaxant b.i.d. 4 mg. I will see him after completion of the physical therapy. Prior: a pleasant 37-year-old male who presents to the office today for evaluation and management of his chronic lower back pain. Patient was referred here by his primary care doctor after recent visit. The patient reports 15 years of ongoing lower back pain after injury at work. had a slip and fall and since then he has suffered from excruciating right lower back pain. Patient reports pain radiates into his right buttocks and down the thigh. he has tried physical therapy, [id number] NSAIDs, muscle relaxers, heat, ice, topical medications including lidocaine patches and previous attempts at injections. None of these have helped with his pain. He states that approximately 10 years ago he had 2 injections at [place] and both of them worsen his pain and ultimately he was nearly bedridden for about 5 days after due to exacerbation of the pain. Patient was recently evaluated at [facility] and is scheduled to start physical therapy at a place in [place] and was prescribed meloxicam. He currently takes cyclobenzaprine with minimal effect. He does take gabapentin at bedtime to help with sleep. Pain is exacerbated with long car rides, sitting, standing, climbing stairs, and lying down. He reports that if he walks it will get a little better. Patient reports that his pain is impacting his ability to sleep, perform activities of daily living, care for himself, function normally and engage in social activities. He states he is starting to feel a decline in his mental health due to his chronic pain. He denies thoughts of hurting self or others. He recently lost a job that he enjoyed because he had to take time off due to his pain. He currently works at [employer] which he does not enjoy. He has imaging including MRI of his back at [facility]. Release signed today for record request. Past medical history consistent with anxiety, depression and GERD. The patient had implantable devices, pacemaker, defibrillator. Patient denies tobacco use, endorses social alcohol use and marijuana use. [facility] Medical History GERD (gastroesophageal reflux disease) Low platelet count No known health problems Family History Unknown No family history of colorectal cancer Social History Housing: House Alcohol intake: current Alcohol intake frequency: holidays/special occasions only Patient Tobacco Use Status: Former Tobacco user Tobacco use type: Smokeless Tobacco Cigarette Packs Per Day: 0.5 Cigarettes Per Day: 12 Years Smoked: 10 e-Cigarette/Vaping Use: Never Used Second Hand Smoke Exposure: No Substance Use Type: Marijuana service: No Current occupational status: unemployed Cognitive needs: No Hearing needs: No Vision needs: No Review of Systems Const All systems reviewed & are unremarkable except as noted in HPI and below Physical Exam Vital Signs: Last Vital Signs Pulse 107 H 02/03/23 10:23 Resp 16 02/03/23 10:23 BP 106/84 02/03/23 10:23 Pulse Ox 98 02/03/23 10:23 Oxygen Delivery Method Room Air 02/03/23 10:23 BMI result Body Mass Index 25.4 Const General: cooperative Orientation/consciousness: patient oriented x3 Chest Chest palpation & inspection: normal inspection of the chest Resp Effort & Inspection: normal respiratory effort, able to speak in complete sentences, abnormal respiratory pattern, no audible wheezes, no cough and respiratory effort not decreased Cardio Jugular venous distension: no JVD GI Inspection: Yes normal to inspection Back/Spine/Pelvis Other: Lumbar exam: Able to stand on bilateral tiptoes and bilateral heels. Able to transition from sit to stand unassisted. Ambulates with bilaterally normal heel strike and toe off Visual inspection without gross abnormality Tender to palpation over PSIS R>L, midline lumbar vertebrae and lumbar paraspinal muscles ROM: extension to 20 degrees. flexion to 90 degrees Strength: 5/5 BLE Sensation: intact and symmetric BLE DTR: intact and symmetric Straight leg raises with and without dorsiflexion positive on right for increased pain over PSIS without radiculopathy, negative on left Facet loading positive bilaterally KIM positive R>L SI compression positive R>L Thigh thrust positive R>L Gaenslens positive R>L Neuro General: patient oriented x3 Psych Affect: normal affect Attitude: cooperative Thought process: Normal thought process present Thought content: Normal thought content present Insight: Good insight present (Psych) Judgement: Good judgement present (Psych) Assessment & Plan Assessment & Plan (1) Right lumbar radiculitis: Code(s): M54.16 - Radiculopathy, lumbar region (2) Sacroiliac dysfunction: Code(s): M53.3 - Sacrococcygeal disorders, not elsewhere classified Plan Plan of care is as above. Obviously he does not have any complications or side effects from the injection. I cannot relate sensation of the knot in the posterior thigh to the sacroiliac joint injection. I will send him to for physical therapy. I will start him on tizanidine 4 mg b.i.d.. I was explained to him that if he feels himself dizzy or drowsy on tizanidine he can take 1 and half pill at night and only half pill in the morning. I will see him when he will complete physical therapy. Orders: Orders PT Evaluation and Treatment Today M53.3 - Sacrococcygeal disorders, not elsewhere classified, M54.16 - Radiculopathy, lumbar region Medications: New tizanidine 4 mg PO BID 30 days PRN 60 tabs 1RF muscle spasticity Coding Level of Care Code Est Pt Level 4 (82946) Diagnoses Right lumbar radiculitis M54.16 Sacroiliac dysfunction M53.3
[2023-02-03 10:23] VITALS: BP 106/84; PULSE 107; RESP 16; O2SAT 98; BMI 25.4
== END 2023-02-03 11:08 | disposition home or self-care (01) ==
PROVIDERS: PCP Family Medicine; Visit Provider Anesthesiology
DX: M54.16 Radiculopathy, lumbar region (principal); M53.3 Sacrococcygeal disorders, not elsewhere classified
CPT/HCPCS: 99214

== ENCOUNTER → 2023-02-03 10:01 | Outpatient (BNVA) | payer OTHER, SELFPAY | PROVIDERS: PCP Family Medicine; Visit Provider Anesthesiology | DX: M54.16 Radiculopathy, lumbar region (principal); M53.3 Sacrococcygeal disorders, not elsewhere classified | CPT/HCPCS: 99212 ==

== ENCOUNTER 2023-02-12 09:35 | Outpatient (AMB) | payer OTHER, SELFPAY ==
--- NOTE | 2023-02-12 09:36 | A.OFFPC_ITS ---
Vital Signs 02/12/23 09:37 Height 5 ft 10 in Weight 181 lb 4 oz BMI 26.0 BP 126/74 Blood Pressure Location Lt brachial Position Sitting Respiration 16 Pulse 101 H Pulse Source Pulse Oximeter Pulse Oximetry (%) 98 Oxygen Delivery Method Room Air Intake Visit Reasons: f/u back pain Intake Note: Patient is here for follow up on back pain. Allergies No Known Allergies [No Known Allergies*] Allergy (Mild, Verified 02/12/23 09:40) NOT APPLICABLE Tobacco use date assessed: 02/12/23 Dental Screening Dental Screen Date: 02/12/23 Did you have a dental visit in the last 12 months?: Yes Did you have a dental problem in the last 6 months where you did not have access to dental care?: No Was dental information given to patient?: Patient has dentist HPI f/u back pain HPI Details 37 y/o male presents to f/u back pain. Had seen pain management 02/03/23 for R lumbar radiculitis. They had sent him for physical therapy and started him on tizanidine 4mg b.i.d. Pt is prescribed gabapentin, lidocaine patches, ibuprofen. Pt notes he tries not to take medications too much as they make him feel fatigued. He notes lidocaine patches do not help much. He plans to give duloxetine a try. HPI Comments History of Present Illness Details Documentation assistance for Ian Garcias MD, was provided by Justin Felipe,?[employer] on 02/12/2023 9:45 AM EST. I, Dr. Garcias, have read, observed, and verified documentation.? [facility] Medical History GERD (gastroesophageal reflux disease) Low platelet count No known health problems Family History Unknown No family history of colorectal cancer Social History Housing: House Alcohol intake: current Alcohol intake frequency: holidays/special occasions only Patient Tobacco Use Status: Former Tobacco user Tobacco use type: Smokeless Tobacco Cigarette Packs Per Day: 0.5 Cigarettes Per Day: 12 Years Smoked: 10 Packs Per Year: 5 Packs per year/per ci.00 e-Cigarette/Vaping Use: Never Used Second Hand Smoke Exposure: No Substance Use Type: Marijuana service: No Current occupational status: unemployed Cognitive needs: No Hearing needs: No Vision needs: No Questionnaire Thrive Questionnaire Date Thrive assessed: 10/06/22 KELLY-7 AMB Questionnaire KELLY-7 Date KELLY - 7 assessed: 10/06/22 Source: Developed by Drs. Brandon Goodman, Chantelle Reaves, Jim Valenzuela and colleagues, with an educational uri from [employer]. Review of Systems Musc Reports back pain Physical exam (Primary Care) Vital Signs: Last Vital Signs Pulse 101 H 02/12/23 09:37 Resp 16 02/12/23 09:37 BP 126/74 02/12/23 09:37 Pulse Ox 98 02/12/23 09:37 Oxygen Delivery Method Room Air 02/12/23 09:37 BMI result Body Mass Index 26.0 Tobacco/Smoking Status: Tobacco use Status Tobacco use date assessed 02/12/23 02/12/23 09:41 Patient Tobacco Use Status Former Tobacco user 02/12/23 09:41 Tobacco use type Smokeless Tobacco 02/12/23 09:41 e-Cigarette/Vaping Use Never Used 02/12/23 09:41 Thrive Assessment: Date of Thrive Assessment Date Thrive assessed 10/06/22 02/12/23 09:41 Assessment and Plan Assessment & Plan (1) Right lumbar radiculitis: Code(s): M54.16 - Radiculopathy, lumbar region Plan: Ongoing right low back pain with radicular symptoms down right leg Injection therapy did not improve his symptoms though from a diagnostic point of view he did briefly improve things for day Having significant pain when sitting but also has pain when trying to sleep and with other range of motion movements Has not been able to work and recently lost his job. Pain management has referred him to physical therapy and it seems likely that they plan an MRI which I agree with. Advised patient to try to get his physical therapy scheduled soon as possible and begin this. He has not been taking meloxicam as he has been concerned about it but I recommend he try this during the day as it will not cause drowsiness. Had also given him duloxetine to help decreased perception of pain as he also has issues with anxiety and the interface between his anxiety and pain perception may be an area weak and affect with this medication. Patient has been afraid to try this as well but after a long discussion he seems more willi ng to give it a try at low doses. At this point, he has not been able to work and I think he will need to be out for a prolonged period of time; possibly 3-6 months. Will fill out transitional assistance forms. Medications: Discontinued cyclobenzaprine Discontinued Reason: Doctor's Order 10 mg PO Q8H 90 tabs 1RF M54.16 - Radiculopathy, lumbar region Coding Level of Care Code Est Pt Level 3 (44482) Diagnoses Right lumbar radiculitis M54.16
[2023-02-12 09:37] VITALS: BP 126/74; PULSE 101; RESP 16; O2SAT 98; BMI 26.0
== END 2023-02-12 10:18 | disposition home or self-care (01) ==
PROVIDERS: PCP Family Medicine; Visit Provider Family Medicine
DX: M54.16 Radiculopathy, lumbar region (principal)
CPT/HCPCS: 99213

== ENCOUNTER 2023-03-17 09:34 | Outpatient (AMB) | payer OTHER, SELFPAY ==
[2023-03-17 09:42] VITALS: BP 122/64; PULSE 89; RESP 13; TEMP 36.4; O2SAT 98; BMI 26.0
--- NOTE | 2023-03-17 09:42 | A.OFFPC_ITS ---
Vital Signs 03/17/23 09:42 Height 5 ft 10 in Weight 181 lb 4 oz BMI 26.0 BP 122/64 Blood Pressure Location Rt brachial Position Sitting Respiration 13 Pulse 89 Pulse Source Pulse Oximeter Temp 97.6 F Temp Source Temporal Artery Scan Pulse Oximetry (%) 98 Oxygen Delivery Method Room Air Intake Visit Reasons: Follow-up lumbar radiculopathy Intake Note: Patient states that hes only taking hydroxyzine and duloxetine due to him feeling like he is currently taking too many pills. Director Stars Required: No Accompanied by: Self / Same As Patient Allergies No Known Allergies [No Known Allergies*] Allergy (Mild, Verified 03/17/23 09:48) NOT APPLICABLE Tobacco use date assessed: 02/12/23 Dental Screening Dental Screen Date: 03/17/23 Did you have a dental visit in the last 12 months?: No Did you have a dental problem in the last 6 months where you did not have access to dental care?: No Was dental information given to patient?: Yes HPI Follow-up lumbar radiculopathy HPI Details 37 y/o male presents to f/u lumbar radic ulopathy. He had ongoing severe R low back pain with R radicular symptoms. Unclear cause though briefly improved with injection therapy and then symptoms returned after day or so. He states he has not been able to start physical therapy yet. COUNT INCLUDES THE [facility] Medical History Low platelet count GERD (gastroesophageal reflux disease) No known health problems Surgical History No pertinent past surgical history Family History Unknown No family history of colorectal cancer Social History Housing: House Alcohol intake: current Alcohol intake frequency: holidays/special occasions only Patient Tobacco Use Status: Former Tobacco user Cigarette Packs Per Day: 0.5 Cigarettes Per Day: 12 Years Smoked: 10 e-Cigarette/Vaping Use: Never Used Second Hand Smoke Exposure: No Substance Use Type: Marijuana service: No Current occupational status: unemployed Cognitive needs: No Hearing needs: No Vision needs: No Questionnaire Thrive Questionnaire Date Thrive assessed: 10/06/22 KELLY-7 AMB Questionnaire KELLY-7 Date KELLY - 7 assessed: 10/06/22 Source: Developed by Drs. Brandon Goodman, Chantelle Reaves, Jim Valenzuela and colleagues, with an educational uri from [employer]. Physical exam (Primary Care) Vital Signs: Last Vital Signs Temp 97.6 F 03/17/23 09:42 Pulse 89 03/17/23 09:42 Resp 13 03/17/23 09:42 BP 122/64 03/17/23 09:42 Pulse Ox 98 03/17/23 09:42 Oxygen Delivery Method Room Air 03/17/23 09:42 BMI result Body Mass Index 26.0 Tobacco/Smoking Status: Tobacco use Status Tobacco use date assessed 02/12/23 03/17/23 09:51 Patient Tobacco Use Status Former Tobacco user 03/17/23 09:51 Tobacco use type 03/17/23 09:51 e-Cigarette/Vaping Use Never Used 03/17/23 09:51 Thrive Assessment: Date of Thrive Assessment Date Thrive assessed 10/06/22 03/17/23 09:51 Assessment and Plan Assessment & Plan (1) Low back pain: Code(s): M54.50 - Low back pain, unspecified Plan: Ongoing?low?back?pain. Has?not?been?able?to?start?physical?therapy?yet.??He?was?told?he?would?need?to?d o?that?at?[facility].??However,?he?can?get?that?started?here?as?soon ?as?possible?and ?our?system[place] [place]so[place]there[place]should?be?no?issues?regarding pain?management?access?to?records. He?had?had?some?issues?with?blood?in?his?stools?and?had?thought?it?was?potential ly?due?to?th e?duloxetine?or?tizanidine.??He?is?stopped?the?tizanidine?and?blood?in?stools?brewer s?stopped?but?I?do?not?think?that?that?medication?and?particular?or?either?medic ation?is?likely?the?cause.??He?will?try?resuming?tizanidine. He?has?an?appointment?with?pain?management?coming?up?in?about?5?days If?he?is?not?significantly?improved?with?physical?therapy,?he?will?likely?need?a n?MRI For?now,?he?remains?out?of?work (2) Facet arthritis of lumbar region: Code(s): M47.816 - Spondylosis without myelopathy or radiculopathy, lumbar region Plan: As?above Coding Level of Care Code Est Pt Level 3 (99029) Diagnoses Low back pain M54.50 Facet arthritis of lumbar region M47.816
== END 2023-03-17 10:21 | disposition home or self-care (01) ==
PROVIDERS: PCP Family Medicine; Visit Provider Family Medicine
DX: M54.50 Low back pain, unspecified (principal); M47.816 Spondylosis without myelopathy or radiculopathy, lumbar region
CPT/HCPCS: 99213

== ENCOUNTER 2023-05-27 10:00 | Outpatient (RCR) | payer OTHER, SELFPAY ==
--- NOTE | 2023-03-30 18:27 | MHC.PT.EP ---
[facility] [place] Office [place] Office [place] Office [address] Rosalia Bailey [address] [phone] F: [phone] F: [phone] F: [phone] F: [phone] Physical Therapy Plan of Care Date of Evaluation: 03/30/23 Date of Surgery: Diagnosis: Sacroiliac dysfunction. Assessment: Pt is a 37 y/o male with GERD who is referred to PT for sacroiliac/ coccygeal disfunction resulting in decreased tolerance for long vehicle travel, sitting for duration, standing, climbing stairs, and rolling in bed secondary to decreased trunk ROM, decreased core strength, mild pelvic asymmetry, increased LE tissue tension, R LE radicular Sx, gati abnormality compensated posture and pain. Pt is deemed an appropriate candidate to receive skilled PT services to address his physical impairments in order to improve his functional ability. Frequency and Duration: The patient will be seen 2 x/ wk x 5 wks Short Term Goals: Initiate home program. Improve baseline pain to < 4/10; initial 6/10. Shelter Goals: I with home program. R LE radicular Sx abolished. Improve core strength by at least 1/2 MMT grade. Pt will improve Radha by at least Treatment Plan: Modalities to reduce pain, spasms and effusion. Manual therapy to restore motion and function. Therapeutic exercise to improve strength and flexibility. Neuromuscular re-education for posture and balance. Therapeutic activities to return to functional activities of daily living. Electronically signed by: Kody Newton PT Please sign and return to therapist. Thank you for your referral.
--- NOTE | 2023-05-27 10:51 | MHC.PT.DC ---
[facility] [place] Office [place] Office [place] Office [address] Rosalia Bailey [address] [phone] F: [phone] F: [phone] F: [phone] F: [phone] Physical Therapy Discharge Report Diagnosis: Sacroiliac dysfunction. Date of Surgery: Date of Evaluation: 03/30/23 Date of Discharge: 05/27/23 Treatments to Date: 8 Cancellations to Date: No Shows to Date: Discharge Status: Improved Function Independent with HEP Recommend MD Follow-up Discharge Summary: 05/27/23: Todd has been an active participant in his therapy. He is I with his lumbopelvic stab program, he has met some of his therapeutic goals however he does persists with intermittent pain with continued decreased tolerance for sitting and standing for duration, performing heavy HH chores, and lifting objects of weight. Radha outcome measure improved from 25/50 to 35/50. We are in agreement with DC at this time. Electronically signed by: Kody Newton PT. Please sign and return to therapist. Thank you for your referral.
== END 2023-05-27 10:52 | disposition home or self-care (01) ==
LOC: HO.PT 10:00
PROVIDERS: PCP Family Medicine; Visit Provider Anesthesiology
DX: M53.3 Sacrococcygeal disorders, not elsewhere classified (principal); M54.16 Radiculopathy, lumbar region
CPT/HCPCS: 97014; 97110; 97112; 97140; 97161

== ENCOUNTER 2023-06-03 09:46 | Outpatient (AMB) | payer OTHER, SELFPAY ==
--- NOTE | 2023-06-03 09:50 | A.OFFVIS_ITS ---
Intake Vital Signs 06/03/23 10:03 Height 5 ft 10 in Weight 188 lb 6 oz BMI 27.0 BP 150/70 H Blood Pressure Location Rt brachial Position Sitting Respiration 12 Pulse 103 H Pulse Source Pulse Oximeter Pulse Oximetry (%) 98 Oxygen Delivery Method Room Air Intake Visit Reasons: Follow up after PT, Last 05/27/23./Confirmed Intake Note: Patient comes in for follow up. Allergies No Known Allergies [No Known Allergies*] Allergy (Mild, Verified 06/03/23 10:01) NOT APPLICABLE HPI HPI Comments History of Present Illness Details Todd is back in my office with complains on lower back pain as well as pain widespread in his body including pain in bilateral wrists bilateral shoulders and area of the hip. The conversation was very prolonged and dif ficult. The patient was very agitated. He insisted on ?some sort of a help to improve my pain ?. He insist on describing some medications to alleviate his pain. He expressed very clear desire to be placed on oxycodone. He states that oxycodone was the medicine which was helping him a lot in the past. I told him that currently our chronic opioid program is close for new admissions. I explained to him that the best way to treat his pain would be through physical therapy, cognitive behavioral therapy, I aerobic exercise low impact. The patient is very reluctant to accept those modalities of treatment. He stated that went for physical therapy for his hip pain area he stated that he went for several sessions of physical therapy and he repeated exercises at home once a day. He has a band at home to make exercises for his hip area. He reported that tizanidine does not help his pain. When asked him if he has any side effects from tizanidine he denies. We agreed that I will increase the dose of tizanidine to 4 mg t.i.d.. He also insists on sending him for MRI. He stated in the past he had MRI in the office of Dr. William Box. Based on that MRI Performed on him some injection nature which is not very clear from explanation of the patient. The only thing I could figure out that reports possibly intradiscal injection. He reported pain exacerbation after that injection. He reports that this MRI was long time ago the last 1 he had in 2017 and 1 before he had in 2013. and he insists on getting another MRI done. I will send him for MRI. Prior: Under my care he received diagnostic bilateral sacroiliac joint injection. The injection was diagnostic and results were nonconclusive. He is pain in the lower back was old with radiating into bilateral lower extremities more to the right lower extremity. He corrected his statement from last time and he told me that the only new sensation he felt after the injection was the feeling of the knot in his posterior thigh. I cannot connect this feelings to anything but I have done for the patient. His is scan of the pelvis is also negative for any collection or hematoma. I have no explanation for him why he felt this knot in his posterior thigh but it is unlikely of any yatrogenic origin. I offered him to treat this condition to send him for physical therapy, I also offered him to start tizanidine muscle relaxant b.i.d. 4 mg. I will see him after completion of the physical therapy. Prior: The patient reports 15 years of ongoing lower back pain after injury at work. had a slip and fall and since then he has suffered from excruciating right lower back pain. Patient reports pain radiates into his right buttocks and down the thigh. he has tried physical therapy, [id number] NSAIDs, muscle rel axers, heat, ice, topical medications including lidocaine patches and previous attempts at injections. None of these have helped with his pain. He states that approximately 10 years ago he had 2 injections at [facility] and both of them worsen his pain and ultimately he was nearly bedridden for about 5 days after due to exacerbation of the pain. Patient was recently evaluated at [facility] and is scheduled to start physical therapy at a place in [place] and was prescribed meloxicam. He currently takes cyclobenzaprine with minimal effect. He does take gabapentin at bedtime to help with sleep. Pain is exacerbated with long car rides, sitting, standing, climbing stairs, and lying down. He reports that if he walks it will get a little better. Patient reports that his pain is impacting his ability to sleep, perform activities of daily living, care for himself, function normally and engage in social activities. He states he is starting to feel a decline in his mental health due to his chronic pain. He denies thoughts of hurting self or others. He recently lost a job that he enjoyed because he had to take time off due to his pain. He currently works at [employer] which he does not enjoy. He has imaging including MRI of his back at [facility]. Release signed today for record request. Past medical history consistent with anxiety, depression and GERD. The patient had implantable devices, pacemaker, defibrillator. Patient denies tobacco use, endorses social alcohol use and marijuana use. [facility] Medical History Low platelet count GERD (gastroesophageal reflux disease) No known health problems Surgical History No pertinent past surgical history Family History Unknown No family history of colorectal cancer Social History Housing: House Alcohol intake: current Alcohol intake frequency: holidays/special occasions only Patient Tobacco Use Status: Former Tobacco user Cigarette Packs Per Day: 0.5 Cigarettes Per Day: 12 Years Smoked: 10 e-Cigarette/Vaping Use: Never Used Second Hand Smoke Exposure: No Substance Use Type: Marijuana service: No Current occupational status: unemployed Cognitive needs: No Hearing needs: No Vision needs: No Review of Systems Const All systems reviewed & are unremarkable except as noted in HPI and below Physical Exam Vital Signs: Last Vital Signs Pulse 103 H 06/03/23 10:03 Resp 12 06/03/23 10:03 BP 150/70 H 06/03/23 10:03 Pulse Ox 98 06/03/23 10:03 Oxygen Delivery Method Room Air 06/03/23 10:03 BMI result Body Mass Index 27.0 Const General: cooperative Orientation/consciousness: patient oriented x3 Chest Chest palpation & inspection: normal inspection of the chest Resp Effort & Inspection: normal respiratory effort, able to speak in complete sentences, abnormal respiratory pattern, no audible wheezes, no cough and respiratory effort not decreased Cardio Jugular venous distension: no JVD GI Inspection: Yes normal to inspection Back/Spine/Pelvis Other: Lumbar exam: Able to stand on bilateral tiptoes and bilateral heels. Able to transition from sit to stand unassisted. Ambulates with bilaterally normal heel strike and toe off Visual inspection without gross abnormality Tender to palpation over PSIS R>L, midline lumbar vertebrae and lumbar paraspinal muscles ROM: extension to 20 degrees. flexion to 90 degrees Strength: 5/5 BLE Sensation: intact and symmetric BLE DTR: intact and symmetric Straight leg raises with and without dorsiflexion positive on right for i ncreased pain over PSIS without radiculopathy, negative on left Facet loading positive bilaterally KIM positive R>L SI compression positive R>L Thigh thrust positive R>L Gaenslens positive R>L Neuro General: patient oriented x3 Psych Affect: normal affect Attitude: cooperative Thought process: Normal thought process present Thought content: Normal thought content present Insight: Good insight present (Psych) Judgement: Good judgement present (Psych) Results Reviewed Results Reviewed: MRI lumbar spine without contrast 03/08/2017. Conus medullaris terminates at 1 2 level. Vertebral bodies are maintained in height and signal intensity. T12-L1, L1-L2, L2-L3, and L3-L4, levels discs are unremarkable. There are mild degenerative changes in the facet joints at L3-L4 level. L4-5 disc is decreased in height and T2 signal. This is a tear of the fibrosis and broad-based central herniation of the disc. Disc material extends more inferiorly. There is a mild hypertrophy of facet joints. There is narrowing of the lateral recesses L4 neural foramina. There is no stress spinal stenosis. When compared to previous examination degenerative changes at L4-5 level slightly progressed. L5-S1 disc is unremarkable. Is mild hypertrophy of the facet joints. Paravertebral soft tissues are unremarkable. Conclusions: Interval progression of degenerative changes at L4-5 level with broad-based central herniation of the disc with disc material extended inferiorly. Ring of the lateral recesses and L4 neural foramina. Mild degenerative changes in the facet joints at the severe level as detailed. Assessment & Plan Assessment & Plan (1) Right lumbar radiculitis: Code(s): M54.16 - Radiculopathy, lumbar region (2) Sacroiliac dysfunction: Code(s): M53.3 - Sacrococcygeal disorders, not elsewhere classified Plan: Plan We agreed that I will send the patient for the MRI of the lumbar spine. He will give us a call after MRI is done and will schedule appointment with my office as soon as possible. After that I will see what else can be done for this patient. However today I was left with impression that the main goal of the patient's visit today in my office is to obtain opioids. Orders: Orders MR lumbar spine wo con 06/03/23 M54.16 - Radiculopathy, lumbar region Patient Instructions: I here by testify that I spent 1 hour to discuss patient his multiple painful conditions, discuss his physical therapy, discuss future treatments, obtaining and evaluating his prior studies, sending him for new studies and organizing this note. Coding Level of Care Code Est Pt Level 5 (86482) Diagnoses Right lumbar radiculitis M54.16 Sacroiliac dysfunction M53.3
[2023-06-03 10:03] VITALS: BP 150/70; PULSE 103; RESP 12; O2SAT 98; BMI 27.0
== END 2023-06-03 10:18 | disposition home or self-care (01) ==
PROVIDERS: PCP Family Medicine; Visit Provider Anesthesiology
DX: M54.16 Radiculopathy, lumbar region (principal); M53.3 Sacrococcygeal disorders, not elsewhere classified
CPT/HCPCS: 99215

== ENCOUNTER → 2023-06-03 09:46 | Outpatient (BNVA) | payer OTHER, SELFPAY | PROVIDERS: PCP Family Medicine; Visit Provider Anesthesiology | DX: M54.16 Radiculopathy, lumbar region (principal); M53.3 Sacrococcygeal disorders, not elsewhere classified | CPT/HCPCS: 99212 ==

== ENCOUNTER 2023-06-29 17:21 | Outpatient (REF) | payer OTHER, SELFPAY ==
--- NOTE | ~2023-06-29 | MR_ITS ---
EXAMINATION: MR LUMBAR SPINE WITHOUT CONTRAST CLINICAL INFORMATION: Radiculopathy, lumbar region. COMPARISON: Plain films of the lumbar spine 09/08/2022. TECHNIQUE: MRI of the lumbar spine was obtained using routine sequences without contrast. FINDINGS: VERTEBRAL BODIES AND PARASPINAL STRUCTURES: There is a transitional vertebra at the lumbosacral junction with partial sacralization of L5 bilaterally. This should be correlated with plain films before any intervention is undertaken. There is a mild levoscoliosis. There is a mild retrolisthesis of L4 on L5. There is narrowing of intervertebral disc height with loss of signal from the disc at this level. Vertebral body heights are maintained, and no fractures are demonstrated. There is an area of increased T2 and STIR signal body of L3, most consistent with an atypical hemangioma. Overall, marrow signal is homogenous. The visualized retroperitoneal and pelvic structures are unremarkable. CONUS MEDULLARIS AND CAUDA EQUINA: Normal, terminating at the level of L1. The lower thoracic spinal cord appears normal. The cauda equina nerve roots and filum terminale appear normal. SPINAL LEVELS: L1-L2: The facet joints appear normal bilaterally. Disc contour is normal. There is no central stenosis or foraminal narrowing. L2-L3: The facet joints appear normal bilaterally. Disc contour is normal. There is no central stenosis or foraminal narrowing. L3-L4: The facet joints appear normal bilaterally. Disc contour is normal. There is no central stenosis or foraminal narrowing. L4-L5: There is mild bilateral facet arthropathy with ligamenta flava hypertrophy. There is a broad-based posterior disc protrusion with an annular fissure, which has an extruded component extending behind the body of L5. There is compression of the ventral thecal sac and there is narrowing of the bilateral subarticular recesses, with likely impingement on the traversing L5 nerve roots bilaterally. There is moderate central stenosis. There are inferior foraminal disc protrusions bilaterally, and there may be impingement on the exiting right L4 nerve root. L5-S1: There is mild bilateral facet arthropathy. There is a small posterior disc protrusion with some distortion of the ventral thecal sac but there is no central stenosis. The neural foramina are patent bilaterally. MR/MR lumbar spine wo con IMPRESSION: 1. There is a transitional vertebra at the lumbosacral junction with partial sacralization of L5. This should be correlated with plain films before any intervention is undertaken. 2. At L4-L5 there is facet arthropathy and there is a broad-based posterior disc protrusion/extrusion. There is compression of the ventral thecal sac and there is narrowing of the bilateral subarticular recesses with likely impingement on the traversing L5 nerve roots. There is moderate central stenosis. There are inferior foraminal disc protrusions and there may be impingement on the exiting right L4 nerve root.
== END 2023-06-29 17:22 | disposition home or self-care (01) ==
LOC: HO.MRI 17:21
PROVIDERS: PCP Family Medicine; Visit Provider Anesthesiology
DX: M54.16 Radiculopathy, lumbar region (principal)
CPT/HCPCS: 72148

== ENCOUNTER 2023-07-02 11:41 | Outpatient (AMB) | payer OTHER, SELFPAY ==
[2023-07-02 11:43] VITALS: BP 114/66; PULSE 102; RESP 13; TEMP 36.4; O2SAT 99; BMI 27.3
--- NOTE | 2023-07-02 11:43 | A.OFFPC_ITS ---
Vital Signs 07/02/23 11:43 Height 5 ft 10 in Weight 190 lb 8 oz BMI 27.3 BP 114/66 Blood Pressure Location Rt brachial Position Sitting Respiration 13 Pulse 102 H Pulse Source Pulse Oximeter Temp 97.6 F Temp Source Temporal Artery Scan Pulse Oximetry (%) 99 Oxygen Delivery Method Room Air Intake Visit Reasons: f/u lumbar radiculopathy Intake Note: Patient needs refill on meloxicam and oxycodone if possible. [employer] Required: No Accompanied by: Self / Same As Patient Allergies No Known Allergies [No Known Allergies*] Allergy (Mild, Verified 07/02/23 11:46) NOT APPLICABLE Tobacco use date assessed: 07/02/23 Dental Screening Dental Screen Date: 07/02/23 Did you have a dental visit in the last 12 months?: Yes Did you have a dental problem in the last 6 months where you did not have access to dental care?: No Was dental information given to patient?: Patient has dentist HPI HPI Comments History of Present Illness Details 37 y/o male presents to f/u lumbar radic ulopathy He had ongoing severe R low back pain and stiffiness with R radicular symptoms He notes that his symptoms are constant and worse upon waking up in the morning. He describes the pain as sharp and throbbing He states he completed 10 weeks course of physical therapy about 2 weeks ago without improvement He notes that Duloxetine has been providing some relief. He also takes Ibuprofen 800mg and uses lidocaine patch only for severe pain with relief He states that baclofen provided some relief in the past He has not scheduled a follow-up appointment with pain management He had an MRI of the umber sine on 06/29/2023 with the following conclusion: IMPRESSION: 1. There is a transitional vertebra at t he lumbosacral junction with partial sacralization of L5. This should be correlated with plain films before any intervention is undertaken. 2. At L4-L5 there is facet arthropathy a nd there is a broad-based posterior disc protrusion/extrusion. There is compression of the ventral thecal sac and there is narrowing of the bilateral subarticular recesses with likely impingement on the traversing L5 nerve roots. There is moderate central stenosis. There are inferior foraminal disc protrusions and there may be impingement on the exiting right L4 nerve root. [facility] Medical History Low platelet count GERD (gastroesophageal reflux disease) No known health problems Surgical History No pertinent past surgical history Family History Unknown No family history of colorectal cancer Social History Housing: House Alcohol intake: current Alcohol intake frequency: holidays/special occasions only Patient Tobacco Use Status: Former Tobacco user Cigarette Packs Per Day: 0.5 Cigarettes Per Day: 12 Years Smoked: 10 e-Cigarette/Vaping Use: Never Used Second Hand Smoke Exposure: No Substance Use Type: Marijuana service: No Current occupational status: unemployed Cognitive needs: No Hearing needs: No Vision needs: No Questionnaire Thrive Questionnaire Date Thrive assessed: 10/06/22 KELLY-7 AMB Questionnaire KELLY-7 Date KELLY - 7 assessed: 10/06/22 Source: Developed by Drs. Brandon Goodman, Chantelle Reaves, Jim Valenzuela and colleagues, with an educational uri from [employer]. Review of Systems Const Details: Const Denies chills, Denies fatigue, Denies fever(s), Denies headache(s) and Denies weakness ENT Denies dizziness and Denies headache(s) Card Denies chest pain, Denies lightheadedness, Denies dyspnea and Denies other (Palpitations) Resp Denies cough, Denies dyspnea, Denies wheezing and Denies other ( shortness of breath) GI Denies abdominal pain, Denies melena, Denies hematochezia, Denies change in bowel habits, Denies dyspepsia and Denies nausea Denies hematuria and Denies dysuria Musc Reports as per HPI Skin/Breast Denies rash, Denies unusual bruising and Denies wounds Neuro Denies abnormal gait, Denies dizziness, Denies headache(s), Denies memory loss, Denies numbness, Denies Sensory deficit (Neuro), Denies tingling and Denies weakness Psych Denies anxiety, Denies depression, Denies memory loss Endo Denies cold intolerance, Denies fatigue, Denies heat intolerance, Denies polydipsia and Denies polyuria Aller/Immun Denies wheezing Physical exam (Primary Care) Vital Signs: Last Vital Signs Temp 97.6 F 07/02/23 11:43 Pulse 102 H 07/02/23 11:43 Resp 13 07/02/23 11:43 BP 114/66 07/02/23 11:43 Pulse Ox 99 07/02/23 11:43 Oxygen Delivery Method Room Air 07/02/23 11:43 BMI result Body Mass Index 27.3 Tobacco/Smoking Status: Tobacco use Status Tobacco use date assessed 07/02/23 07/02/23 11:52 Patient Tobacco Use Status Former Tobacco user 07/02/23 11:52 Tobacco use type 03/17/23 10:21 e-Cigarette/Vaping Use Never Used 07/02/23 11:52 Thrive Assessment: Date of Thrive Assessment Date Thrive assessed 10/06/22 07/02/23 11:52 Const Other: General: no acute distress and well developed Nutritional Appearance: well nourished Orientation/consciousness: patient oriented x3 HENMT Head: Yes normocephalic and Yes atraumatic Eyes General: appearance normal, both eyes and all related structures Pupils: Equal, round and reactive pupils present EOM: EOMs intact bilaterally Resp Effort & Inspection: normal respiratory effort Auscultation: clear to auscultation bilaterally Cardio Rate: regular rate Rhythm: regular rhythm Heart sounds: S1 normal heart sound present, S2 normal heart sound present, no gallops, no murmurs and no rubs GI Palpation (GI): No Abdominal aortic bruit present, Soft to palpation, nontender, No hepatosplenomegaly present and No Rebound tenderness present Auscultation: normal bowel sounds General: Yes no CVA tenderness Back/Spine/Pelvis Back: no CVA tenderness Cervical Spine: cervical ROM normal and No Cervical spine tenderness Thoracic/Lumbar Spine: thoraco-lumbar ROM normal, No pain with thoraco-lumbar ROM, No thoracic spinal tenderness and lumbar spinal tenderness. Right lower back tenderness Extrem General: Yes normal to inspection, No edema and No calf tenderness Skin General: warm and dry. Normal skin color. Normal skin turgor Neuro General: patient oriented x3, gait normal and no focal neuro deficit Cranial nerves: Yes Equal, round and reactive pupils present Cognition (Neuro): normal cognition Gait exam (Neuro): Normal gait present Sensory Exam: No Sensory deficit (Neuro) Psych Appearance: grossly normal Affect: normal affect Attitude: cooperative Thought process: Normal thought process present Assessment and Plan Assessment & Plan (1) Right lumbar radiculitis: Code(s): M54.16 - Radiculopathy, lumbar region Plan: Lumbar spine and right-sided lower back tenderness to palpation Baclofen ordered. Instructed on the benefits and adverse reactions of the medication. Advised to take as prescribed Continue to take duloxetine, ibuprofen, and lidocaine patch as prescribed Warm/cold compresses encouraged Advised to call and schedule a follow-up appointment with pain management, also follow-up with PCP Return with worsening or new symptoms Verbalized understanding and agreed with treatment plan Medications: Changed From baclofen 5 mg PO BID 30 tabs 0RF M54.50 - Low back pain, unspecified To baclofen 5 mg PO BID PRN 30 tabs 0RF muscle spasm M54.50 - Low back pain, unspecified Discontinued gabapentin Discontinued Reason: Doctor's Order 600 mg PO TID 30 days 90 tabs 1RF M54.16 - Radiculopathy, lumbar region baclofen Discontinued Reason: Doctor's Order 5 mg PO BID 30 tabs 0RF M54.50 - Low back pain, unspecified oxycodone Partial Fill upon patient request. Discontinued Reason: Patient no longer taking 5 mg PO Q6H 14 days PRN 56 tabs 0RF post operative pain Coding Level of Care Code Est Pt Level 4 (02408) Diagnoses Right lumbar radiculitis M54.16
== END 2023-07-02 14:19 | disposition home or self-care (01) ==
PROVIDERS: PCP Family Medicine
DX: M54.16 Radiculopathy, lumbar region (principal)
CPT/HCPCS: 99214

== ENCOUNTER → 2023-07-21 09:38 | Outpatient (BNVA) | payer OTHER, SELFPAY | PROVIDERS: PCP Family Medicine; Visit Provider Anesthesiology ==

== ENCOUNTER 2023-07-21 09:47 | Outpatient (AMB) | payer OTHER, SELFPAY ==
--- NOTE | 2023-07-21 09:58 | MHC.OFFVIS ---
Intake Intake Visit Reasons: MRI FOLLOW/RESULTS/LVM Allergies No Known Allergies [No Known Allergies*] Allergy (Mild, Verified 07/21/23 10:00) NOT APPLICABLE HPI HPI Comments History of Present Illness Details Todd is on the phone today because he reported his car broke in and could not reach us . He is enquiring about MRI of the lumbar spine I sent him to evaluate conditions in his back. The report of the MRI is as below. On the MRI there is L4-5 disc protrusion which may or may not compress passing L5 nerve roots or exiting L4 nerve root. The pattern of the pain in this patient is axial lower back with radiation into the right lower extremity to the level of the knee but not below that level. I do not think that this is the pain which would be secondary to neuropathic pathology in the nerve root. Nerve root compression of L4 nerve root will result of pain radiation all the way down to the anterior surface of the thigh medial surface of the mancia and into the great toe. Nerve root compression of the L5 nerve root will result in pain radiation all the way down on anterior surface of the thigh anterior surface of the mancia and into 3 middle toes. I am left under impression that the patient's pain most likely is coming from facet joints. I think that I can offered to this patient right-sided L2, L3-L4 does ramus L5 medial branch block in the attempt to alleviate his pain. I am not sure what else I can bring for this patient to help him. See discussions as below. Prior: He expressed very clear desire to be placed on oxycodone. He states that oxycodone was the medicine which was helping him a lot in the past. I told him that currently our chronic opioid program is close for new admissions. I explained to him that the best way to treat his pain would be through physical therapy, cognitive behavioral therapy, I aerobic exercise low impact. The patient is very reluctant to accept those modalities of treatment. He stated that went for physical therapy for his hip pain area he stated that he went for several sessions of physical therapy and he repeated exercises at home once a day. He has a band at home to make exercises for his hip area. He reported that tizanidine does not help his pain. When asked him if he has any side effects from tizanidine he denies. We agreed that I will increase the dose of tizanidine to 4 mg t.i.d.. He also insists on sending him for MRI. He stated in the past he had MRI in the office of Dr. William Box. Based on that MRI Performed on him some injection nature which is not very clear from explanation of the patient. The only thing I could figure out that reports possibly intradiscal injection. He reported pain exacerbation after that injection. He reports that this MRI was long time ago the last 1 he had in 2017 and 1 before he had in 2013. and he insists on getting another MRI done. I will send him for MRI. Prior: Under my care he received diagnostic bilateral sacroiliac joint injection. The injection was diagnostic and results were nonconclusive. He is pain in the lower back was old with radiating into bilateral lower extremities more to the right lower extremity. He corrected his statement from last time and he told me that the only new sensation he felt after the injection was the feeling of the knot in his posterior thigh. I cannot connect this feelings to anything but I have done for the patient. His is scan of the pelvis is also negative for any collection or hematoma. I have no explanation for him why he felt this knot in his posterior thigh but it is unlikely of any yatrogenic origin. I offered him to treat this condition to send him for physical therapy, I also offered him to start tizanidine muscle relaxant b.i.d. 4 mg. I will see him after completion of the physical therapy. Prior: The patient reports 15 years of ongoing lower back pain after injury at work. had a slip and fall and since then he has suffered from excruciating right lower back pain. Patient reports pain radiates into his right buttocks and down the thigh. he has tried physical therapy, [id number] NSAIDs, muscle relaxers, heat, ice, topical medications including lidocaine patches and previous attempts at injections. None of these have helped with his pain. He states that approximately 10 years ago he had 2 injections at [place] and both of them worsen his pain and ultimately he was nearly bedridden for about 5 days after due to exacerbation of the pain. Patient was recently evaluated at [facility] and is scheduled to start physical therapy at a place in [place] and was prescribed meloxicam. He currently takes cyclobenzaprine with minimal effect. He does take gabapentin at bedtime to help with sleep. Pain is exacerbated with long car rides, sitting, standing, climbing stairs, and lying down. He reports that if he walks it will get a little better. Patient reports that his pain is impacting his ability to sleep, perform activities of daily living, care for himself, function normally and engage in social activities. He states he is starting to feel a decline in his mental health due to his chronic pain. He denies thoughts of hurting self or others. He recently lost a job that he enjoyed because he had to take time off due to his pain. He currently works at [employer] which he does not enjoy. [facility] Medical History Low platelet count GERD (gastroesophageal reflux disease) No known health problems Surgical History No pertinent past surgical history Family History Unknown No family history of colorectal cancer Social History Housing: House Alcohol intake: current Alcohol intake frequency: holidays/special occasions only Patient Tobacco Use Status: Former Tobacco user Cigarette Packs Per Day: 0.5 Cigarettes Per Day: 12 Years Smoked: 10 e-Cigarette/Vaping Use: Never Used Second Hand Smoke Exposure: No Substance Use Type: Marijuana service: No Current occupational status: unemployed Cognitive needs: No Hearing needs: No Vision needs: No Review of Systems Const All systems reviewed & are unremarkable except as noted in HPI and below Physical Exam Const General: cooperative Orientation/consciousness: patient oriented x3 Chest Chest palpation & inspection: normal inspection of the chest Resp Effort & Inspection: normal respiratory effort, able to speak in complete sentences, abnormal respiratory pattern, no audible wheezes, no cough and respiratory effort not decreased Cardio Jugular venous distension: no JVD GI Inspection: Yes normal to inspection Back/Spine/Pelvis Other: Lumbar exam: Able to stand on bilateral tiptoes and bilateral heels. Able to transition from sit to stand unassisted. Ambulates with bilaterally normal heel strike and toe off Visual inspection without gross abnormality Tender to palpation over PSIS R>L, midline lumbar vertebrae and lumbar paraspinal muscles ROM: extension to 20 degrees. flexion to 90 degrees Strength: 5/5 BLE Sensation: intact and symmetric BLE DTR: intact and symmetric Straight leg raises with and without dorsiflexion positive on right for increased pain over PSIS without radiculopathy, negative on left Facet loading positive bilaterally KIM positive R>L SI compression positive R>L Thigh thrust positive R>L Gaenslens positive R>L Neuro General: patient oriented x3 Psych Affect: normal affect Attitude: cooperative Thought process: Normal thought process present Thought content: Normal thought content present Insight: Good insight present (Psych) Judgement: Good judgement present (Psych) Results Reviewed Results Reviewed: R LUMBAR SPINE WITHOUT CONTRAST CLINICAL INFORMATION: Radiculopathy, lumbar region. COMPARISON: Plain films of the lumbar spine 09/08/2022. TECHNIQUE: MRI of the lumbar spine was obtained using routine sequences without contrast. FINDINGS: VERTEBRAL BODIES AND PARASPINAL STRUCTURES: There is a transitional vertebra at the lumbosacral junction with partial sacralization of L5 bilaterally. This should be correlated with plain films before any intervention is undertaken. There is a mild levoscoliosis. There is a mild retrolisthesis of L4 on L5. There is narrowing of intervertebral disc height with loss of signal from the disc at this level. Vertebral body heights are maintained, and no fractures are demonstrated. There is an area of increased T2 and STIR signal body of L3, most consistent with an atypical hemangioma. Overall, marrow signal is homogenous. The visualized retroperitoneal and pelvic structures are unremarkable. CONUS MEDULLARIS AND CAUDA EQUINA: Normal, terminating at the level of L1. The lower thoracic spinal cord appears normal. The cauda equina nerve roots and filum terminale appear normal. SPINAL LEVELS: L1-L2: The facet joints appear normal bilaterally. Disc contour is normal. There is no central stenosis or foraminal narrowing. L2-L3: The facet joints appear normal bilaterally. Disc contour is normal. There is no central stenosis or foraminal narrowing. L3-L4: The facet joints appear normal bilaterally. Disc contour is normal. There is no central stenosis or foraminal narrowing. L4-L5: There is mild bilateral facet arthropathy with ligamenta flava hypertrophy. There is a broad-based posterior disc protrusion with an annular fissure, which has an extruded component extending behind the body of L5. There is compression of the ventral thecal sac and there is narrowing of the bilateral subarticular recesses, with likely impingement on the traversing L5 nerve roots bilaterally. There is moderate central stenosis. There are inferior foraminal disc protrusions bilaterally, and there may be impingement on the exiting right L4 nerve root. L5-S1: There is mild bilateral facet arthropathy. There is a small posterior disc protrusion with some distortion of the ventral thecal sac but there is no central stenosis. The neural foramina are patent bilaterally. MR/MR lumbar spine wo con IMPRESSION: 1. There is a transitional vertebra at the lumbosacral junction with partial sacralization of L5. This should be correlated with plain films before any intervention is undertaken. 2. At L4-L5 there is facet arthropathy and there is a broad-based posterior disc protrusion/extrusion. There is compression of the ventral thecal sac and there is narrowing of the bilateral subarticular recesses with likely impingement on the traversing L5 nerve roots. There is moderate central stenosis. There are inferior foraminal disc protrusions and there may be impingement on the exiting right L4 nerve root. Assessment & Plan Assessment & Plan (1) Right lumbar radiculitis: Code(s): M54.16 - Radiculopathy, lumbar region (2) Sacroiliac dysfunction: Code(s): M53.3 - Sacrococcygeal disorders, not elsewhere classified Plan: (3) Spondylosis of lumbar region without myelopathy or radiculopathy: Code(s): M47.816 - Spondylosis without myelopathy or radiculopathy, lumbar region Plan MRI results are as above. I carefully explained the MRI results to the patient today. I explained to him that the only thing I can offer him is diagnostic medial branch block L2-L3 L4 does ramus L5 on the right. If this will not alleviate his pain I have no other means to help this patient. Patient Instructions: I here by testify that I spent 35 minutes today in conversation with this patient as well as planning his care, evaluating his diagnostic study and organizing this note. Telehealth Telehealth Location of provider rendering services: practice address Location of patient: address on file Patient Identification confirmed using: Name, : Yes Telehealth method: voice only Patient verbally consented to treatment: Yes Patient verbally consented to billing insurance company: Yes Patient informed of any privacy concerns related to visit: Yes Coding Level of Care Code Tele Est Pt Level 4 (58715) Diagnoses Right lumbar radiculitis M54.16 Sacroiliac dysfunction M53.3 Spondylosis of lumbar region without myelopathy or radiculopathy M47.816
== END 2023-07-21 10:15 | disposition home or self-care (01) ==
PROVIDERS: PCP Family Medicine; Visit Provider Anesthesiology
DX: M54.16 Radiculopathy, lumbar region (principal); M53.3 Sacrococcygeal disorders, not elsewhere classified; M47.816 Spondylosis without myelopathy or radiculopathy, lumbar region
CPT/HCPCS: 99214

== ENCOUNTER 2023-08-31 09:07 | Day surgery (SDC) | payer OTHER, SELFPAY ==
[2023-02-02 15:13] VITALS: BMI 27.4
--- NOTE | 2023-02-04 13:09 | HO.ANESPROP2 ---
HPI - Anesthesia Eval Consult details Narrative: 37yo M for Upper Endoscopy and Colonoscopy [facility] Active Problems Active Problems: All Active Problems (Updated 01/21/23 @ 09:39 by Fidel Rivera MD) Retroperitoneal hematoma (Acute) Traumatic retroperitoneal hematoma (Acute) Facet arthritis of lumbar region (Acute) Sacroiliac dysfunction (Acute) Erectile dysfunction (Acute) Anxiety and depression (Acute) Left hip pain (Acute) Right lumbar radiculitis (Acute) Mild epistaxis (Acute) Low platelet count (Acute) Chronic constipation (Acute) COVID-19 (Acute) Acute parotitis (Acute) GERD (gastroesophageal reflux disease) (Acute) History of herniated intervertebral disc (Acute) Low back pain (Acute) Hypertension (Acute) Laboratory exam ordered as part of routine general medical examination (Acute) Fracture of fourth metacarpal bone (Acute) Past Medical History Medical History GERD (gastroesophageal reflux disease) Low platelet count No known health problems Family History Family History Unknown No family history of colorectal cancer Social History Social History Housing: House Alcohol intake: current Alcohol intake frequency: holidays/special occasions only Patient Tobacco Use Status: Former Tobacco user Tobacco use type: Smokeless Tobacco Cigarette Packs Per Day: 0.5 Cigarettes Per Day: 12 Years Smoked: 10 e-Cigarette/Vaping Use: Never Used Second Hand Smoke Exposure: No Substance Use Type: Marijuana service: No Current occupational status: unemployed Cognitive needs: No Hearing needs: No Vision needs: No Meds Allergies Allergy/AdvReac Type Severity Reaction Status Date / Time No Known Allergies Allergy Mild NOT Verified 02/03/23 10:27 [No Known Allergies*] APPLICABLE Home Medications Medication Instructions Recorded Confirmed Last Taken Type meloxicam 15 mg tablet 15 mg PO DAILY 09/10/22 Unknown History Exam Exam Date and Time: February 04, 2023 1309 Height,Weight and Vital Signs: Height 5 ft 8 in Weight 81.647 kg Pertinent Lab Results Pertinent Lab Results: Laboratory Tests 07/30/22 10:56 WBC 6.2 Hgb 15.4 Hct 47.7 Plt Count 115 L Sodium 142 Potassium 4.2 Chloride 107 Carbon Dioxide 26 BUN 14 Creatinine 1.05 Narrative Narrative: EKG 05/2022 Vent. Rate : 094 BPM Atrial Rate : 094 BPM P-R Int : 134 ms QRS Dur : 098 ms QT Int : 366 ms P-R-T Axes : 055 008 018 degrees QTc Int : 457 ms Normal sinus rhythm Normal ECG When compared with ECG of 05-NOV-2021 10:42, No significant change was found Assessment and Plan Assessment Anesthesia Assessment: Chart Reviewed
[2023-08-27 14:21] VITALS: BMI 27.4
[2023-08-27 14:22] VITALS: BMI 27.4
--- NOTE | 2023-08-30 12:47 | HO.ANESPROP2 ---
Documented by User: Farnaz Mejia NP 08/30/23 12:47 HPI - Anesthesia Eval Consult details Narrative: 38yo M for Upper Endoscopy and Colonoscopy [facility] Active Problems Active Problems: All Active Problems Spondylosis of lumbar region without myelopathy or radiculopathy (Acute) Retroperitoneal hematoma (Acute) Traumatic retroperitoneal hematoma (Acute) Facet arthritis of lumbar region (Acute) Sacroiliac dysfunction (Acute) Erectile dysfunction (Acute) Anxiety and depression (Acute) Left hip pain (Acute) Right lumbar radiculitis (Acute) Mild epistaxis (Acute) Chronic constipation (Acute) COVID-19 (Acute) Acute parotitis (Acute) History of herniated intervertebral disc (Acute) Low back pain (Acute) Hypertension (Acute) Laboratory exam ordered as part of routine general medical examination (Acute) Fracture of fourth metacarpal bone (Acute) Low platelet count (Acute) GERD (gastroesophageal reflux disease) (Acute) Past Medical History Medical History (Updated 08/27/23 @ 14:13 by Arianna Maldonado RN) Low platelet count GERD (gastroesophageal reflux disease) Family History Family History Unknown No family history of colorectal cancer Surgical History Surgical History No pertinent past surgical history Social History Social History Housing: House Alcohol intake: current Alcohol intake frequency: holidays/special occasions only Patient Tobacco Use Status: Former Tobacco user Cigarette Packs Per Day: 0.5 Cigarettes Per Day: 12 Years Smoked: 10 e-Cigarette/Vaping Use: Never Used Second Hand Smoke Exposure: No Use of substances other than those prescribed or required for medical reasons: Yes Substance Use Type: Marijuana Are you DNR?: No Advance Directives: No Advance Directives Information Provided: Yes service: No Current occupational status: unemployed Cognitive needs: No Hearing needs: No Vision needs: No Meds Allergies Allergy/AdvReac Type Severity Reaction Status Date / Time No Known Allergies Allergy Mild NOT Verified 07/21/23 10:00 [No Known Allergies*] APPLICABLE Home Medications ?Medication ?Instructions ?Recorded ?Confirmed ?Last Taken ?Type docusate sodium 100 mg capsule 100 mg PO BID 07/02/23 Unknown History Exam Height,Weight and Vital Signs: Height 5 ft 8 in Weight 81.647 kg Assessment and Plan Assessment Anesthesia Assessment: Chart Reviewed Documented by User: Dane Oliva MD 08/31/23 09:48 [facility] Past Medical History Medical History (Updated 08/27/23 @ 14:13 by Airanna Maldonado RN) Low platelet count GERD (gastroesophageal reflux disease) Family History Family History Unknown No family history of colorectal cancer Family history of problems with anesthesia: No Surgical History Surgical History No pertinent past surgical history History of Problems with Anesthesia: No Social History Social History Housing: House Alcohol intake: current Alcohol intake frequency: holidays/special occasions only Patient Tobacco Use Status: Former Tobacco user Cigarette Packs Per Day: 0.5 Cigarettes Per Day: 12 Years Smoked: 10 e-Cigarette/Vaping Use: Never Used Second Hand Smoke Exposure: No Use of substances other than those prescribed or required for medical reasons: Yes Substance Use Type: Marijuana Are you DNR?: No Advance Directives: No Advance Directives Information Provided: Yes service: No Current occupational status: unemployed Cognitive needs: No Hearing needs: No Vision needs: No Meds Allergies Allergy/AdvReac Type Severity Reaction Status Date / Time No Known Allergies Allergy Mild NOT Verified 07/21/23 10:00 [No Known Allergies*] APPLICABLE Home Medications ?Medication ?Instructions ?Recorded ?Confirmed ?Last Taken ?Type docusate sodium 100 mg capsule 100 mg PO BID 07/02/23 Unknown History Exam Airway Mallampati Class: II TM Dist: >3cm Neck ROM: Full Loose/Missing/Broken Teeth: No Heart: rrr Lungs: cta Assessment and Plan Assessment Anesthesia Assessment: Anesthesia Plan Discussed and Smoking Cess. Discussed Final Anesthetic Review Family History of Problems with Anesthesia: No History of Problems with Anesthesia: No NPO: Yes ASA Class: II Final Preanesthetic Review: No Changes in Pt Med Stat, Meds/Allgs Chart Reviewed, Consent Obtained/Reviewed and Anes Risks/Benef Reviewed Patient Risk: Intermediate Procedure Risk: Intermediate Anesthetic Plan Anesthetic Plan: MAC: Disposition: Standard PACU
[2023-08-31 09:31] VITALS: BMI 28.9
[2023-08-31 09:33] VITALS: BMI 28.9
[2023-08-31 09:34] VITALS: BP 121/87; PULSE 66; RESP 18; TEMP 36.8; O2SAT 98
[2023-08-31 09:50] LABS: Hematocrit 48.9 % (42.0-52.0); Hemoglobin 16.2 g/dl (14.0-18.0); Mean Corpuscular HGB Conc 33.1 g/dl (31.0-36.0); Mean Corpuscular Volume 87.6 fL (80.0-98.0); Mean Platelet Volume 11.6 fL (9.4-12.4); Platelet Count 159 X10*3/uL (160-400); Red Blood Count 5.58 X10*6/uL (4.60-5.80); Red Cell Distribution Width 13.7 % (11.0-16.0); White Blood Count 6.5 X10*3/uL (4.8-10.8)
[2023-08-31] MEDS: Lactated Ringers 1,000 ML 100 ML IVCONT (09:52)
--- NOTE | 2023-08-31 10:01 | MHC.SHP ---
Pre-Procedural Eval Section A - 24 Hr Update-Section A only Date of Service: 08/31/23 Section B - Complete if H&P > 30 days Chief Complaint: GERD, Other constipation Relevant Family History (Specify if Yes): No Relevant Social History: Other (specify) (THC) Present Medications: see Short Stay Collaborative assessment Medical History: Significant History (Low platelet count GERD (gastroesophageal reflux disease)) History of Previous Operations: No relevant previous surgery Allergies: Allergies Allergy/AdvReac Type Severity Reaction Status Date / Time No Known Allergies Allergy Mild NOT Verified 07/21/23 10:00 [No Known Allergies*] APPLICABLE Review of Systems Sugical H&P ROS: Negative: Constitution, Cardiovascular, Respiratory, Neurological, Psychiatric, Hem-Onc, Allergic/Immunologic, Gastrointestinal, Genitourinary, Musculoskeletal, Integumentary, Endocrine and Eyes/Ears/Nose/Throat Exam Surgical H&P Exam: Normal: HEENT, Normal: Heart, Normal: Lungs, Normal: Extremities, Normal: Abdomen, Normal: Skin and Normal: Neurological Plan Diagnosis/Plan: Unchanged I have reviewed the history and physical and performed a pertinent physical examination on my patient. No changes have occurred unless specified. Time Spent With Patient Time: Total time managing care of this patient today ____ minutes.
--- NOTE | 2023-08-31 10:14 | P.OP_ITS ---
Operative Note Operative Note Date of Service: 08/31/23 Narrative: Operative Information Procedure Description: EGD, Colonoscopy Indication: GERD,constipation Anesthesia: MAC FLEXIBLE TRANSORAL UPPER GASTROINTESTINAL ENDOSCOPY AND COLONOSCOPY PROCEDURE NOTE UPPER ENDOSCOPY Consent: Indications for the procedure and potential complications of bleeding, perforation, reaction to medications and missed diagnosis were discussed with the patient and informed consent was obtained. Instrument: Olympus GIF H 190 J mid size upper endoscope Monitoring: Vital signs and clinical assessment, continuous EKG monitoring, Pulse oximetry, Carbon Dioxide monitoring and blood pressure monitoring were done throughout the procedure. Procedure: The patient was placed in the left lateral decubitis position and pre-procedure medications were administered and a bite block was placed. The endoscope was inserted into the mouth and advanced under direct vision to the third part of duodenum. A careful inspection was made as the upper endoscope was withdrawn including a retroflexed examination of the proximal stomach; Findings and interventions are described below. Findings: Larynx:normal Esophagus: GE junction at 40 cm, diaphragm hiatus at 40 cm, normal mucosa, bx taken from distal and proximal esophagus in separate jars Stomach: Normal mucosa. Biopsies were obtained. Grade 2 flap valve on retroflexed examination of the cardia. LES was lax Duodenum: mild bulbar duodenitis, bx taken Intervention: Biopsies as noted above, COLONOSCOPY Instrument: Olympus variable stiffness pediatric scope 190L Colonoscopy Monitoring: Vital signs and clinical assessment, continuous EKG monitoring, Pulse oximetry, Carbon Dioxide monitoring and blood pressure monitoring were done throughout the procedure. Colon withdrawal time was 20 minutes. Procedure: The patient was placed in the left lateral decubitis position and pre-procedure medications were administered. After a digital rectal examination of the ano-rectum, the video colonoscope was inserted into the rectum and advanced through the colon to the cecum/TI. The colonoscope was slowly withdrawn in a retrograde panoramic fashion and the colon mucosa was carefully examined including a retroflexed view of the rectum. Findings and interventions are described below. Procedure Difficulty:moderate, pressure applied Findings: v redundant colon Terminal Ileum-normal Cecum:normal Ascending Colon: 10-12 mm sessile polyp removed with cold snare Transverse Colon -normal Descending Colon:normal Sigmoid Colon: 8-10 mm sessile polyp removed with cold snare Rectum: Retroflexion with small internal hemorrhoids, grade I, cold snare rectal biopsy taken to r/o hirschsprungs Anorectum - normal Colon preparation: [place] Bowel Preparation Scale Right colon; 2 Transverse colon: 3 Left colon; 3 (0 = Unprepared colon segment with mucosa not seen due to solid stool that cannot be cleared. 1 = Portion of mucosa of the colon segment seen, but other areas of the colon se gment not well seen due to staining, residual stool and/or opaque liquid. 2 = Minor amount of residual staining, small fragments of stool and/or opaque liquid, but mucosa of colon segment seen well. 3 = Entire mucosa of colon segment seen well with no residual staining, small fragments of stool or opaque liquid) Impression and Post Procedure Diagnosis: Endoscopy Findings: duodenitis lax LES Colonoscopy Findings: redundant colon colon polyps internal hemorrhoids Plan: Await Pathology results Repeat Colonoscopy in 5 years due to polyps or earlier if clinically indicated High fiber diet leaflet avoid straining at stool, epsom salts and sitz bath, anusol supps or cream GERd precautions, PPI as prescribed Above findings were reviewed with the patient and relevant handouts were provided if indicated.
[2023-08-31 11:12] VITALS: BP 115/80; PULSE 77; RESP 16; TEMP 36.1; O2SAT 98
[2023-08-31 11:27] VITALS: BP 123/93; PULSE 83; RESP 16; O2SAT 100
[2023-08-31 11:40] VITALS: BP 145/99; PULSE 65; RESP 16; TEMP 36.2; O2SAT 100
== END 2023-08-31 12:38 | disposition home or self-care (01) ==
PROVIDERS: Nurse Practitioner; PCP Family Medicine; Visit Provider Internal Medicine Gastroenterology
PROC: (CPT 45385; principal; 2023-08-31 11:30)
DX: K59.09 Other constipation (principal); K62.5 Hemorrhage of anus and rectum; D12.2 Benign neoplasm of ascending colon; D12.5 Benign neoplasm of sigmoid colon; K64.0 First degree hemorrhoids; K62.89 Other specified diseases of anus and rectum; Q43.8 Other specified congenital malformations of intestine; K21.9 Gastro-esophageal reflux disease without esophagitis; K29.80 Duodenitis without bleeding; K44.9 Diaphragmatic hernia without obstruction or gangrene; K22.4 Dyskinesia of esophagus; D69.6 Thrombocytopenia, unspecified; Z79.1 Long term (current) use of non-steroidal anti-inflammatories (NSAID); Z79.52 Long term (current) use of systemic steroids; Z79.899 Other long term (current) drug therapy
CPT/HCPCS: 45385; 43239; 36415; 85027; 88305; 88313; 88341; 88342; J1596; J2704

== ENCOUNTER → 2023-08-31 09:07 | Outpatient (BNV) | payer OTHER, SELFPAY | PROVIDERS: PCP Family Medicine; Visit Provider Internal Medicine Gastroenterology | DX: K59.00 Constipation, unspecified (principal); D12.5 Benign neoplasm of sigmoid colon; D12.2 Benign neoplasm of ascending colon; K64.0 First degree hemorrhoids; K21.9 Gastro-esophageal reflux disease without esophagitis; K29.80 Duodenitis without bleeding | CPT/HCPCS: 43239; 45385 ==

== ENCOUNTER 2023-09-14 08:52 | Outpatient (AMB) | payer OTHER, SELFPAY ==
--- NOTE | 2023-09-14 09:01 | MHC.OFFVIS ---
Vital Signs 09/14/23 09:03 Height 5 ft 8 in Weight 185 lb BMI 28.1 BP 141/85 H Blood Pressure Location Lt brachial Position Sitting Pulse 83 Intake Visit Reasons: S/P Double; Dr. Trinh Intake Note: Patient follow up for S/P double results. Patient cc: abdominal discomfort, and constipation, Denies any other GI issues. Electronic Court Recorder Required: No Accompanied by: Self / Same As Patient Allergies No Known Allergies [No Known Allergies*] Allergy (Mild, Verified 09/14/23 09:05) NOT APPLICABLE HPI Comments Details: A pleasant 38 y/o male constipation, acid reflux f/u after EGD/ colonoscopy w/ polypectomy He tolerated procedure well somewhat nervous about the outcome of his procedure, as he says he can not remember too much after procedure certainly understands Reviewed procedure report, pathology as well as recommendations Multiple questions answered to his satisfaction Chronic constipation he is able to manage fairly well with MiraLax p.r.n. as well as he is using a probiotic daily that has been very helpful. He is made dietary modifications that have benefitted both acid reflux as well as constipation. He has no nausea, vomiting, hematemesis, hematochezia fever or chills inpt placenta previa-due 10/05- [facility] Medical History (Updated 09/14/23 @ 09:46 by Radha Jenkins PA-C) Low platelet count GERD (gastroesophageal reflux disease) Surgical History History of esophagogastroduodenoscopy (EGD) Hx of colonoscopy No pertinent past surgical history Family History Unknown No family history of colorectal cancer Social History Housing: House Alcohol intake: current Alcohol intake frequency: holidays/special occasions only Patient Tobacco Use Status: Former Tobacco user Cigarette Packs Per Day: 0.5 Cigarettes Per Day: 12 Years Smoked: 10 e-Cigarette/Vaping Use: Never Used Second Hand Smoke Exposure: No Substance Use Type: Marijuana service: No Current occupational status: unemployed Cognitive needs: No Hearing needs: No Vision needs: No Review of Systems Const All systems reviewed & are unremarkable except as noted in HPI and below GI Denies abdominal pain, Denies hematochezia, Reports constipation, Denies nausea and Denies vomiting Physical Exam Vital Signs: Last Vital Signs Pulse 83 09/14/23 09:03 BP 141/85 H 09/14/23 09:03 BMI result Body Mass Index 28.1 Const General: cooperative, healthy appearing, comfortable, no acute distress and well groomed Orientation/consciousness: patient oriented x3 Limitations: no limitations Resp Effort & Inspection: normal respiratory effort and able to speak in complete sentences Skin General skin exam: no rashes or lesions noted Neuro General: patient oriented x3 Extrem General: Yes full ROM Psych Appearance: grossly normal and well kempt Mental Status: mental status grossly normal Speech and movement: Normal speech and movement present and Clear speech present Affect: normal affect Attitude: cooperative Thought process: Normal thought process present Thought content: Normal thought content present Insight: Good insight present (Psych) Judgement: Good judgement present (Psych) Results Reviewed Results Reviewed: Impression and Post Procedure Diagnosis: Endoscopy Findings: duodenitis lax LES Colonoscopy Findings: redundant colon colon polyps internal hemorrhoids Plan: Await Pathology results Repeat Colonoscopy in 5 years due to polyps or earlier if clinically indicated High fiber diet leaflet avoid straining at stool, epsom salts and sitz bath, anusol supps or cream GERd precautions, PPI as prescribed ge/Sex: 38/M Attending: Enrico Trinh MD : 1985 Submitted by: Enrico Trinh MD Copies to: Ian Garcias MD MR #: [id number] Status: [facility] Collected: 08/31/23 Location: [facility] Received: 08/31/23 Diagnosis A. Colon, sigmoid, polypectomy: Tubular adenoma; negative for high-grade dysplasia or carcinoma. B. Colon, ascending, polypectomy: Fragments of tubular adenoma; negative for high-grade dysplasia or carcinoma. C. Rectum, biopsy: Mucosal congestion; otherwise rectal mucosa within normal limits. D. Duodenum, biopsy: Chronic inactive duodenitis. E. Stomach, biopsy: Antral-type mucosa with moderate chronic inactive inflammation; no Helicobacter organisms seen. F. Esophagus, distal, biopsy: Squamous epithelium within normal limits; no inflammation seen. G. Esophagus, proximal, biopsy: Squamous epithelium within normal limits; no inflammation seen. Comment: Assessment for ganglion cells in part C will be addended. Clinical History Pre-Op Dx: GERD, other constipation Post-Op Dx: Polyp, hemorrhoids Microscopic Description A-G. Microscopic sections examined. Focal foveolar metaplasia is present (D) and no metaplastic changes are seen (E) supported by AB/PAS stains; no Helicobacter organisms are seen, supported by H. pylori immunostain (E). Material Received A. Sigmoid polyp B. Ascending colon polyp C. Rectal bx's, r/o Hirschsprung's and stain for ganglion cells D. Duodenum E. Stomach bx's F. Distal esophagus bx's G. Proximal esophagus Gross Description Patient: Todd Bundy Age/Sex: 38/M MR#: [id number] Page 1 of 2 Assessment & Plan Assessment & Plan (1) Tubular adenoma of colon: Comment: adenomas Code(s): D12.6 - Benign neoplasm of colon, unspecified Category: Medical Plan: 5 year repeat AFDR- begin screening at 28 y/o (2) Chronic constipation: Comment: Maintain high-fiber diet Code(s): K59.09 - Other constipation Category: Medical Plan: Maintain high-fiber diet Plan Repeat asymptomatic colonoscopy 5 years All first-degree relatives begin screening at age 28 Maintain high-fiber Avoid straining with hemorrhoid Patient Instructions: Repeat asymptomatic colonoscopy 5 years-to adenomas, copy of procedure report pathology given to patient All first-degree relatives begin screening at age 28-reinforced Maintain [id number] given Avoid straining with hemorrhoid Encouraged to call with any questions or concerns Appreciate the opportunity assist in the care the patient
[2023-09-14 09:03] VITALS: BP 141/85; PULSE 83; BMI 28.1
== END 2023-09-14 10:24 | disposition home or self-care (01) ==
PROVIDERS: PCP Family Medicine; Visit Provider Physician Assistant
DX: D12.6 Benign neoplasm of colon, unspecified (principal); K59.09 Other constipation
CPT/HCPCS: 99213

== ENCOUNTER → 2023-09-14 08:52 | Outpatient (BNVA) | payer OTHER, SELFPAY | PROVIDERS: PCP Family Medicine; Visit Provider Physician Assistant | DX: K59.09 Other constipation (principal); D12.6 Benign neoplasm of colon, unspecified; K21.9 Gastro-esophageal reflux disease without esophagitis | CPT/HCPCS: 99212 ==

== ENCOUNTER 2024-06-18 16:40 | Emergency (ER) | payer OTHER, SELFPAY ==
[2024-06-18 16:57] VITALS: BP 162/97; PULSE 79; RESP 20; TEMP 36.9; O2SAT 100; BMI 28.1
--- NOTE | 2024-06-18 16:58 | ED_ITS ---
HPI - General Adult General Chief complaint: Abdominal Pain Stated complaint: abdpain ,vomit sensitive to palpation, took zofran Time Seen by Provider: 06/18/24 22:21 Source: patient Mode of arrival: ambulatory Limitations: no limitations History of Present Illness ED Provider: Dr. Johnny Schulz HPI narrative: 39-year-old male with a history of hypertension, depression, anxiety, GERD who presents emergency department for evaluation of nausea, vomiting, abdominal pain, myalgias and arthralgias. The patient states that he got sick earlier this morning. He states that he vomited and then shortly after vomiting developed abdominal pain. He states that he vomited multiple times until he was just vomiting up stomach acid. He states that he was having severe 10/10 pain and he points to his upper abdomen when asked to localize the pain. At the time of evaluation his pain was 6/10. He denied fever, chills, rhinorrhea, sore throat, cough, chest pain, shortness of breath. He has not had any diarrhea, dark stools or bloody stools. States that he was having diffuse body pain. Patient states that he rarely drinks alcohol but he did drink 2 cups of vodka with cranberry last night. Related Data Home Medications ?Medication ?Instructions ?Recorded ?Confirmed docusate sodium 100 mg capsule 100 mg PO BID 07/02/23 08/31/23 Previous Rx's ?Medication ?Instructions ?Recorded lidocaine 5 % topical patch 2 patch topical DAILY #30 ea 08/27/22 ibuprofen 800 mg tablet 800 mg PO Q8H #90 tabs 09/08/22 methylcellulose (laxative) 500 mg 500 mg PO BID #60 tabs 09/10/22 tablet (Citrucel) sildenafil (pulm.hypertension) 20 20 mg PO DAILY 30 days #30 tabs 12/22/22 mg tablet (Revatio) cane #1 ea 01/18/23 omeprazole 20 mg capsule,delayed 20 mg PO DAILY #90 caps 04/26/23 release hydroxyzine HCl 25 mg tablet 25 mg PO TID PRN anxiety 30 days 04/30/23 #90 tabs bisacodyl 5 mg tablet,delayed 20 mg (4 x 5 mg) PO ONCE 1 day #4 05/03/23 release (Dulcolax (bisacodyl)) tabs baclofen 5 mg tablet 5 mg PO BID PRN muscle spasm #30 07/02/23 tabs duloxetine 20 mg capsule,delayed 20 mg PO BID 30 days #60 caps 08/09/23 release nirmatrelvir 300 mg (150 mg See Rx Instructions PO .COMPLEX 02/12/24 x2)-ritonavir 100 mg tablet,dose #30 ea pack (Paxlovid) acetaminophen 500 mg tablet 1,000 mg (2 x 500 mg) PO Q6H PRN 06/18/24 (Tylenol Extra Strength) fever or pain #20 tabs famotidine 20 mg tablet 20 mg PO DAILY #30 tabs 06/18/24 ondansetron 4 mg disintegrating 4 mg PO Q6-8H PRN nausea and 06/18/24 tablet vomiting #14 tabs Allergies Allergy/AdvReac Type Severity Reaction Status Date / Time No Known Allergies Allergy Mild NOT Verified 06/18/24 16:59 [No Known Allergies*] APPLICABLE Review of Systems 2 Review of Systems: Yes all other systems are reviewed and are negative [facility] Past Medical History [facility] Narrative: Social history: He denies tobacco use. He states that he rarely drinks alcohol but did have 2 cups of vodka last night. He denies drug use. Medical History Low platelet count GERD (gastroesophageal reflux disease) Surgical History History of esophagogastroduodenoscopy (EGD) Hx of colonoscopy No pertinent past surgical history Family History Family History Unknown No family history of colorectal cancer Social History Social History Housing: House Alcohol intake: current Alcohol intake frequency: holidays/special occasions only Patient Tobacco Use Status: Former Tobacco user Cigarette Packs Per Day: 0.5 Cigarettes Per Day: 12 Years Smoked: 10 e-Cigarette/Vaping Use: Never Used Second Hand Smoke Exposure: No Substance Use Type: Marijuana Advance Directives: No Advance Directives Information Provided: No Do you have a plan to hurt others: No Plan service: No Current occupational status: unemployed Cognitive needs: No Hearing needs: No Vision needs: No Physical Exam ED Vital Signs: Vital Signs - 24 hr 06/18/24 16:57 06/18/24 19:31 06/18/24 22:00 Temperature 98.4 F 99.4 F 98.7 F Pulse Rate 79 76 87 Respiratory Rate 20 18 18 Blood Pressure 162/97 H 185/105 H 158/87 H Pulse Oximetry 100 99 99 Oxygen Delivery Method Room Air Room Air Room Air BMI result Body Mass Index 28.1 Vital signs revealed an elevated blood pressure of 162/97 otherwise unremarkable. Exam: General: Awake, alert in no distress Head: Normocephalic, atraumatic EENT: PERRL, Lids normal, sclera normal, conjunctiva normal, nose normal , ears normal, throat without erythema or exudates Neck: Supple, no adenopathy Lung: breath sounds symmetric, no wheezing, rales or rhonchi Chest: symmetric movement, nontender Heart: regular rate and rhythm, normal S1, S2 no murmurs or rubs Abdomen: Gastric tenderness, no rebound, no voluntary or involuntary guarding Back: no vertebral tenderness, no CVAT Extremities: no deformities, moves all extremities symmetrically Psych: Pleasant, cooperative Course Course Course Narrative: RME performed by Josie Laguna PA-C. Patient is a 39 year old assigned male at presenting to the emergency department with abdominal pain, nausea, and vomiting. Detailed physical exam and review of systems are deferred to the primary substance abuse counselor. Labs and swabs ordered. Patient placed back in the waiting room pending room availability and results. Medications Administered Discontinued Medications Generic Name Dose Route Start Last Admin Trade Name Rosie PRN Reason Stop Dose Admin Famotidine 20 mg 06/18/24 22:43 06/18/24 22:55 Famotidine/Pf 20 Mg/2 Ml Vial IVPUSH 06/18/24 22:44 20 mg ONCE ONE Administration Sodium Chloride 1,000 mls @ 999 mls/hr 06/18/24 22:43 06/19/24 00:16 Ns IV 06/18/24 23:43 Infused .Q1H1M STA Infusion Ketorolac Tromethamine 15 mg 06/18/24 22:43 06/18/24 22:55 Ketorolac Tromethamine 15 Mg/Ml Vial IVPUSH 06/18/24 22:44 15 mg ONCE STA Administration Ondansetron HCl 4 mg 06/18/24 22:43 06/18/24 22:55 Ondansetron Hcl 4 Mg/2 Ml Vial IVPUSH 06/18/24 22:44 4 mg ONCE ONE Administration Medical Decision Making Medical Decision Making [facility] Narrative: 39-year-old male with a history of hypertension, depression, anxiety, GERD who presents emergency department for evaluation of nausea, multiple episodes of vomiting, severe epigastric abdominal pain, myalgias, arthralgias with symptoms starting in the morning. Vital signs revealed an elevated blood pressure otherwise unremarkable. Abdominal exam revealed moderate epigastric tenderness. Differential diagnosis: ?Includes but is not limited to viral syndrome, gastritis, pancreatitis, electrolyte abnormalities, anemia Course: :49 Patient's laboratory evaluation was unremarkable. Patient's examination and presentation is consistent with viral syndrome causing gastritis, vomiting, myalgias and arthralgias. The patient was treated with normal saline IV x1 L, Zofran 4 mg IV, Toradol 15 mg IV and Pepcid 20 mg IV. 00:16 Patient was feeling significantly better after the above treatment. Patient was discharged home with prescriptions for Tylenol 1000 mg every 6 hours as needed for pain or fever, Zofran ODT 4 mg every 8 hours as needed for nausea and vomiting and famotidine 20 mg 1 pill once a day for 30 days. Patient was advised to increase his fluid intake and to stay on a MOISES diet for the next 24 hours. He was given printed and verbal instructions and discharged home. Admission/Observation Consideration of admission/observation: Escalation of care including admission/observation considered (Yes) Lab Data [facility] Lab Attestation statement: I reviewed the patient's lab results. My interpretation patient's laboratory evaluation as follows: Elevated WBC 40250 with 92 neutrophils. Elevated chloride of 111. Elevated glucose 137. LFTs were normal. Lipase was normal. COVID-19, RSV and influenza were negative 06/18/24 17:29 06/18/24 17:29 Labs: Lab Results 06/18/24 Range/Units 17: WBC 11.0 H (4.8-10.8) X10*3/uL RBC 5.63 (4.60-5.80) X10*6/uL Hgb 16.3 (14.0-18.0) g/dl Hct 49.7 (42.0-52.0) % MCV 88.3 (80.0-98.0) fL MCH 29.0 (27.0-33.0) pg MCHC 32.8 (31.0-36.0) g/dl RDW 14.3 (11.0-16.0) % Plt Count 165 (160-400) X10*3/uL MPV 11.8 (9.4-12.4) fL Immature Gran % (Auto) 0.4 (0.0-0.4) % Neut % (Auto) 92.6 H (45-73) % Lymph % (Auto) 4.4 L (20-40) % [place] % (Auto) 2.5 (2-11) % Eos % (Auto) 0.0 (0-4) % Baso % (Auto) 0.1 (0-2) % Lymph # (Auto) 0.5 L (1.2-4.9) X10*3/uL [place] # (Auto) 0.3 (0.1-1.2) X10*3/uL Eos # (Auto) 0.0 (0.0-0.4) X10*3/uL Baso # (Auto) 0.0 (0.0-0.2) X10*3/uL Abs Immat Gran (auto) 0.04 H (0.00-0.03) X10*3/uL Absolute Neuts (auto) 10.2 H (2.0-8.3) x10*3/uL Absolute Nucleated RBC 0.000 (0.0-0.012) X10*3/uL Nucleated RBC % (auto) 0.0 (0.0-0.2) /100WBC Smear Tech's Comments VERIFIED Sodium 143 (135-145) mmol/L Potassium 4.6 (3.3-5.1) mmol/L Chloride 111 H (96-108) mmol/L Carbon Dioxide 22 (22-29) mmol/L Anion Gap 15 (12-20) BUN 12 (9-16) mg/dL Creatinine 1.05 (0.5-1.4) mg/dL Estim Creat Clear Calc 102.7 Estimated GFR > 60 Random Glucose 137 H (60-115) mg/dL Calcium 10.4 H D (8.4-10.2) mg/dL Magnesium 1.9 (1.6-2.6) mg/dL Total Bilirubin 0.8 (0.0-1.0) mg/dL AST 24 (5-37) U/L ALT 21 (0-40) U/L Alkaline Phosphatase 77 (39-117) U/L Total Protein 8.2 H (6.5-8.0) g/dL Albumin 5.1 H (3.5-5.0) g/dL Lipase 10 (8-78) U/L Influenza Type A (PCR) NEGATIVE (Negative) Influenza Type B (PCR) NEGATIVE (Negative) RSV RNA Qual (PCR) NEGATIVE (Negative) SARS-CoV-2 RNA (RT-PCR) NEGATIVE (Negative) Prescription Management I considered prescription management with: Pain Medication (Tylenol) and Other (Antiemetic: Zofran ODT, H2 alistair: Pepcid) Chronic Conditions Patient?s care impacted by: Hypertension and Other (GERD) Discharge Plan Discharge Clinical Impression: Viral syndrome, Acute dehydration, Myalgia Nausea and vomiting Qualifiers: Vomiting type: unspecified Qualified Code(s): R11.2 - Nausea with vomiting, unspecified Patient Disposition: Home, Self-Care Additional Instructions: Your blood work was unremarkable. Your symptoms are consistent with a viral infection. Your body will fight off this infection but it may take up the 2 weeks before you feel completely better. Take Tylenol (acetaminophen) 500 mg pills, 2 pills every 6 hours as needed for pain or fever. Take Zofran ODT 4 mg pills, 1 pill dissolved in your mouth every 8 hours as needed for nausea and vomiting. Take Pepcid (famotidine) 20 mg pills, 1 pill once a day for 2 weeks. ?This medication reduces the amount of acid that your stomach produces and will help the inflammation in your stomach heal. For the next 24 hours, stay on a MOISES diet (bananas, rice, applesauce, tea and toast). Follow-up with your doctor in 2 days. Please return to the emergency department if your symptoms get worse or if you develop any symptoms that are concerning to you. Prescriptions: New acetaminophen [Tylenol Extra Strength] 500 mg tablet 1,000 mg PO Q6H PRN (Reason: fever or pain) Qty: 20 0RF famotidine 20 mg tablet 20 mg PO DAILY Qty: 30 0RF ondansetron 4 mg tablet,disintegrating 4 mg PO Q6-8H PRN (Reason: nausea and vomiting) Qty: 14 0RF No Action sildenafil (pulm.hypertension) [Revatio] 20 mg tablet 20 mg PO DAILY 30 Days Qty: 30 3RF (DME) cane Device See Rx Instructions .Route Qty: 1 0RF Rx Instructions: As directed omeprazole 20 mg capsule,delayed release(DR/EC) 20 mg PO DAILY Qty: 90 3RF hydroxyzine HCl 25 mg tablet 25 mg PO TID PRN (Reason: anxiety) 30 Days Qty: 90 1RF bisacodyl [Dulcolax (bisacodyl)] 5 mg tablet,delayed release (DR/EC) 20 mg PO ONCE 1 Days Qty: 4 0RF Rx Instructions: take at noon the day before colonoscopy duloxetine 20 mg capsule,delayed release(DR/EC) 20 mg PO BID 30 Days Qty: 60 2RF Paxlovid 300 mg (150 mg x 2)-100 mg tablets,dose pack See Rx Instructions PO .COMPLEX Qty: 30 0RF Rx Instructions: take TWO 150 mg tablets of nirmatrelvir with ONE 100 mg tablet of ritonavir twice daily for 5 days PO lidocaine 5 % adhesive patch,medicated 2 patch topical DAILY Qty: 30 0RF Rx Instructions: leave on most painful area for up to 12 hrs ibuprofen 800 mg tablet 800 mg PO Q8H Qty: 90 1RF docusate sodium 100 mg capsule 100 mg PO BID baclofen 5 mg tablet 5 mg PO BID PRN (Reason: muscle spasm) Qty: 30 0RF Citrucel 500 mg tablet 500 mg PO BID Qty: 60 5RF Print Language: [place]alan
[2024-06-18 17:35] LABS: Basophils Percent Auto 0.1 % (0-2); Hematocrit 49.7 % (42.0-52.0); Hemoglobin 16.3 g/dl (14.0-18.0); Imm Gran Abs Auto 0.04 X10*3/uL (0.00-0.03); Imm Gran Pct Auto 0.4 % (0.0-0.4); Lymphocytes Absolute Auto 0.5 X10*3/uL (1.2-4.9); Lymphocytes Percent Auto 4.4 % (20-40); MANUAL DIFF FLAG SCAN; Mean Corpuscular HGB Conc 32.8 g/dl (31.0-36.0); Mean Corpuscular Volume 88.3 fL (80.0-98.0); Mean Platelet Volume 11.8 fL (9.4-12.4); Monocytes Absolute Auto 0.3 X10*3/uL (0.1-1.2); Monocytes Percent Auto 2.5 % (2-11); Neutrophils Absolute Auto 10.2 x10*3/uL (2.0-8.3); Neutrophils Percent Auto 92.6 % (45-73); Platelet Count 165 X10*3/uL (160-400); Red Blood Count 5.63 X10*6/uL (4.60-5.80); Red Cell Distribution Width 14.3 % (11.0-16.0); SCAN SMEAR FLAG 1
[2024-06-18 17:51] LABS: SLIDE REVIEW VERIFIED
[2024-06-18 17:56] LABS: Alanine Aminotransferase 21 U/L (0-40); Albumin Level 5.1 g/dL (3.5-5.0); Alkaline Phosphatase 77 U/L (39-117); Anion Gap 15 (12-20); Aspartate Amino Transferase 24 U/L (5-37); Bilirubin Total 0.8 mg/dL (0.0-1.0); Blood Urea Nitrogen 12 mg/dL (9-16); Calcium 10.4 mg/dL (8.4-10.2); Carbon Dioxide 22 mmol/L (22-29); Chloride 111 mmol/L (96-108); Creatinine Clr Calc Pharmacy 102.7; Estimated Glomerular Filt Rate > 60; Glucose Random 137 mg/dL (60-115); Lipase 10 U/L (8-78); Magnesium 1.9 mg/dL (1.6-2.6); Potassium 4.6 mmol/L (3.3-5.1); Sodium 143 mmol/L (135-145); Total Protein 8.2 g/dL (6.5-8.0)
[2024-06-18 18:10] LABS: Influenza A PCR NEGATIVE (Negative); Influenza B PCR NEGATIVE (Negative); Resp Syncy Virus RNA Qual PCR NEGATIVE (Negative); SARS COV2 PCR INHOUSE NEGATIVE (Negative)
[2024-06-18 19:31] VITALS: BP 185/105; PULSE 76; RESP 18; TEMP 37.4; O2SAT 99
[2024-06-18 22:00] VITALS: BP 158/87; PULSE 87; RESP 18; TEMP 37.1; O2SAT 99
[2024-06-18] MEDS: Famotidine/PF 20 MG/2 ML VIAL IVPUSH (22:55)
[2024-06-18] MEDS: ondansetron HCL 4 MG/2 ML VIAL IVPUSH (22:55)
[2024-06-18] MEDS: Ketorolac Tromethamine 15 MG/ML VIAL IVPUSH (22:55)
[2024-06-18] MEDS: 0.9 % Sodium Chloride 1,000 ML 999 ML IV (22:56)
--- NOTE | 2024-06-19 00:16 | PC.NURSE ---
pt ate ivan crackers and jesus redd and states he feels better.
[2024-06-19 00:23] VITALS: BP 145/88; PULSE 91; RESP 16; TEMP 37.1; O2SAT 99
[2024-06-19 00:30] VITALS: BP 145/88; PULSE 91; RESP 16; TEMP 37.1; O2SAT 99
== END 2024-06-19 00:30 | disposition home or self-care (01) ==
PROVIDERS: Physician Assistant Medical; Emergency Provider Emergency Medicine Emergency Medical Services; PCP Nurse Practitioner Acute Care
DX: B34.9 Viral infection, unspecified (principal); E86.0 Dehydration; R10.2 Pelvic and perineal pain; R11.2 Nausea with vomiting, unspecified; M79.10 Myalgia, unspecified site; R10.13 Epigastric pain; Z87.891 Personal history of nicotine dependence; Z03.818 Encounter for observation for suspected exposure to other biological agents ruled out; Z79.899 Other long term (current) drug therapy
CPT/HCPCS: 0241U; 80053; 83690; 83735; 85025; 96361; 96374; 96375; 99284; J1885; J2405

== ENCOUNTER 2024-10-06 12:51 | Outpatient (AMB) | payer MEDICAID, SELFPAY ==
--- NOTE | 2024-10-06 12:55 | MHC.PC.OV ---
Vital Signs 10/06/24 13:02 Height 5 ft 8 in Weight 183 lb 2 oz BMI 27.8 BP 127/84 Blood Pressure Location Lt brachial Position Sitting Pulse 81 Pulse Source Pulse Oximeter Temp 97.3 F Temp Source Temporal Artery Scan Pulse Oximetry (%) 98 Oxygen Delivery Method Room Air Intake Visit Reasons: Disability Paper work Intake Note: Patient is here for disability paperwork. Patient c/o frequency urinating x 2 months. 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 Slate Splitting Required: No Allergies No Known Allergies [No Known Allergies*] Allergy (Mild, Verified 10/06/24 12:56) NOT APPLICABLE Medication List - Last Reconciled 10/06/24 by MD kem Capellan As directed Tobacco use date assessed: 10/06/24 Dental Screening Dental Screen Date: 10/06/24 Did you have a dental visit in the last 12 months?: Yes Did you have a dental problem in the last 6 months where you did not have access to dental care?: No Was dental information given to patient?: Patient has dentist HPI Disability Paper work HPI Details 39 y/o male presents today for disability paperwork. Hx of R lumbar radiculitis, sacroiliac dysfunction. Had been following up with Dr. Rivera and pt states they had been unable to do anything for him. Had trialed injection therapy without success. MRI?showing: At L4-L5 there is facet arthropathy and there is a broad-based posterior disc protrusion/extrusion. There is compression of the ventral thecal sac and there is narrowing of the bilateral subarticular recesses with likely impingement on the traversing L5 nerve roots. There is moderate central stenosis. There are inferior foraminal disc protrusions and there may be impingement on the exiting right L4 nerve root. Has complaints of urinary frequency x2 months. PFSH Medical History Low platelet count GERD (gastroesophageal reflux disease) Surgical History History of esophagogastroduodenoscopy (EGD) Hx of colonoscopy No pertinent past surgical history Family History Unknown No family history of colorectal cancer Social History (Updated 10/06/24 @ 13:02 by Kylah Kirkpatrick MA) Housing: House Alcohol intake: current Alcohol intake frequency: a few times a week Patient Tobacco Use Status: Former Tobacco user Cigarette Packs Per Day: 0.5 Cigarettes Per Day: 12 Years Smoked: 10 Packs Per Year: 5 Packs per year/per ci.00 e-Cigarette/Vaping Use: Never Used Second Hand Smoke Exposure: No Use of substances other than those prescribed or required for medical reasons: Yes Substance Use Type: Marijuana service: No Current occupational status: unemployed Cognitive needs: No Hearing needs: No Vision needs: No Questionnaire PHQ-9 Over the last 2 weeks, how often have you been bothered by any of the following problems? 1. Little interest or pleasure in doing things: nearly every day 2. Feeling down, depressed, or hopeless: several days 3. Trouble falling or staying asleep, or sleeping too much: nearly every day 4. Feeling tired or having little energy: nearly every day 5. Poor appetite or overeating: nearly every day 6. Feeling bad about yourself - or that you are a failure or have let yourself or your family down: several days 7. Trouble concentrating on things, such as reading the newspaper or watching television: several days 8. Moving or speaking so slowly that other people could have noticed. Or the opposite - being so fidgety or restless that you have been moving around a lot more than usual: several days 9. Thoughts that you would be better off or of hurting yourself in some way: not at all Total score: 16 Depression Screening Interpretation: Positive Depression Screening Done: Yes 50404 - PHQ-9 Billing: Yes Source: Developed by Drs. Brandon Goodman, Chantelle Reaves, Jim Valenzuela and colleagues, with an educational uri from [employer]. Thrive Questionnaire Date Thrive assessed: 10/06/24 I am a: Patient What is your living situation today?: I have a place to live, but I am worried about losing it in the future Within the past 12 months, did the food you bought not last and you didn't have the money to get more?: I choose not to answer this question Within the past 12 months, did you worry whether your food would run out before you got money to buy more?: Often true Do you have trouble paying for medicines?: Yes Do you have trouble getting transportation to medical appointments?: No Do you have trouble paying your heating and electricity bill?: No Do you have trouble taking care of your child, family member or friend?: Yes Do you have trouble with day-to-day activities such as bathing, preparing meals, shopping, managing finances, etc.?: Yes Are you currently unemployed and looking for a job?: Yes Are you interested in more education?: No Please select the resources that you would like help with: None Currently or been in a relationship where the following occur: No concerns reported THRIVE Score: 2 AUDIT C Alcohol Use Questionnaire (AUDIT-C) 1. How often do you have a drink containing alcohol?: Monthly or less 2. How many drinks containing alcohol do you have on a typical day when you are drinking?: 5 or 6 3. How often do you have six or more drinks on one occasion?: Less than monthly Total Score: 4 KELLY-7 AMB Questionnaire KELLY-7 Date KELLY - 7 assessed: 10/06/24 Feeling nervous, anxious, or on edge: 3 = Nearly every day Not being able to stop or control worryin = More than half the days Worrying too much about different things: 2 = More than half the days Trouble relaxin = Nearly every day Being so restless that it is hard to sit still: 3 = Nearly every day Becoming easily annoyed or irritable: 3 = Nearly every day Feeling afraid as if something awful might happen: 2 = More than half the days Total KELLY-7 score (0-4 normal; 5-9 mild; 10-14 moderate; 15-21 severe): 18 Source: Developed by Drs. Brandon Goodman, Chantelle Reaves, Jim Valenzuela and colleagues, with an educational uri from [employer]. KELLY-7 Assessment Billing KELLY-7 Assessment Tool: KELLY-7 Assessment 31719 Review of Systems Const Denies chills, Denies fatigue, Denies fever(s), Denies headache(s) and Denies weakness ENT Denies dizziness and Denies headache(s) Card Denies dyspnea Resp Denies cough, Denies dyspnea, Denies wheezing and Denies other (shortness of breath) Reports urinary frequency Musc Denies numbness and Denies tingling Neuro Denies dizziness, Denies headache(s), Denies numbness, Denies tingling and Denies weakness Psych Denies anxiety and Denies depression Endo Denies fatigue Aller/Immun Denies wheezing Physical exam (Primary Care) Vital Signs: Last Vital Signs Temp 97.3 F 10/06/24 13:02 Pulse 81 10/06/24 13:02 BP 127/84 10/06/24 13:02 Pulse Ox 98 10/06/24 13:02 Oxygen Delivery Method Room Air 10/06/24 13:02 BMI result Body Mass Index 27.8 Tobacco/Smoking Status: Tobacco use Status Tobacco use date assessed 10/06/24 10/06/24 12:58 Patient Tobacco Use Status Former Tobacco user 10/06/24 13:02 Tobacco use type 03/17/23 10:21 e-Cigarette/Vaping Use Never Used 10/06/24 13:02 PHQ-9: PHQ-9 Score PHQ-9: Total score 16 10/06/24 13:28 Depression Screening Interpretation: Positive Thrive Assessment: Date of Thrive Assessment Date Thrive assessed 10/06/24 10/06/24 12:58 Currently or been in a relationship where the following occur: No concerns reported Const General: well developed; No acute distress Nutritional Appearance: well nourished Orientation/consciousness: patient oriented x3 HENMT Head: Yes normocephalic and Yes atraumatic Eyes General: appearance normal, both eyes and all related structures Pupils: Equal, round and reactive pupils present EOM: EOMs intact bilaterally Resp Effort & Inspection: normal respiratory effort Neuro General: patient oriented x3 and gait normal Cranial nerves: Yes Equal, round and reactive pupils present Psych Affect: normal affect Coding Level of Care Code Est Pt Level 4 (84990) Diagnoses Right lumbar radiculitis M54.16 Sacroiliac dysfunction M53.3 Dysuria R30.0 Facet arthritis of lumbar region M47.816 Additional Codes KELLY-7 Assessment Billing - KELLY-7 Assessment Tool: KELLY-7 Assessment 56238 ([id number]) PHQ-9 - 65399 - PHQ-9 Billing: Yes ([id number]) Assessment & Plan Assessment & Plan (1) Right lumbar radiculitis: Code(s): M54.16 - Radiculopathy, lumbar region Category: Medical (2) Sacroiliac dysfunction: Code(s): M53.3 - Sacrococcygeal disorders, not elsewhere classified Category: Medical (3) Dysuria: Code(s): R30.0 - Dysuria Category: Medical (4) Facet arthritis of lumbar region: Code(s): M47.816 - Spondylosis without myelopathy or radiculopathy, lumbar region Category: Medical Plan MRI?showing: At L4-L5 there is facet arthropathy and there is a broad-based posterior disc protrusion/extrusion. There is compression of the ventral thecal sac and there is narrowing of the bilateral subarticular recesses with likely impingement on the traversing L5 nerve roots. There is moderate central stenosis. There are inferior foraminal disc protrusions and there may be impingement on the exiting right L4 nerve root. He?had?tried?injection?therapy?without?success?and?in?fact?had?had?worsened?pain. He?has?had?benefit?from?physical?therapy.??I?encouraged?him?to?continue?physical?therapy - I?can?refer?him?to?physiatry?for?further recommendations. At?this?point,?patient?is?disabled.??Will?fill?out?paperwork?for?12?months. Continue?physical?therapy Can?use?NSAIDs?intermittently Advised?walking -- Patient?has?GERD/gastritis?in?should?continue?his?PPI?when?he?gets?flare?ups.??Can?also?use?an anticipatory?strategy; take?PPI?or?famotidine?prior?to?expected?flare-ups?from?trigger?foods. --- Dysuria Sending?urine?for?GC/Chla, U/A Bactrim DS --- Patient?has?discontinued?his?other?medications?for?pain?and?anxiety/depression.??Says?that?currently?does?not?feel?he?needs?them?and?that?most?of?them?were?I?do?not?helping?or?making?him?feel?worse. Review?these?with?him?today.??He?can?hold?off?on?other?medications. Orders: Orders UA CC w/rflx Micro + Cult Today R30.0 - Dysuria, Z00.00 - Encounter for general adult medical examination without abnormal findings CT NG by PCR Today R30.0 - Dysuria, Z11.3 - Encounter for screening for infections with a predominantly sexual mode of transmission Medications: New sulfamethoxazole-trimethoprim 800-160 mg (Bactrim DS) 1 tab PO Q12H 10 days 20 tabs 0RF Changed From famotidine 20 mg PO DAILY 30 tabs 0RF To famotidine 20 mg PO DAILY 90 days 90 tabs 3RF
[2024-10-06 13:02] VITALS: BP 127/84; PULSE 81; TEMP 36.3; O2SAT 98; BMI 27.8
== END 2024-10-06 13:31 | disposition home or self-care (01) ==
LOC: HO.HMCFM 12:51
PROVIDERS: PCP Family Medicine; Visit Provider Family Medicine
DX: M54.16 Radiculopathy, lumbar region (principal); M53.3 Sacrococcygeal disorders, not elsewhere classified; R30.0 Dysuria; M47.816 Spondylosis without myelopathy or radiculopathy, lumbar region

== ENCOUNTER 2024-10-06 12:51 | Outpatient (REF) | payer MEDICAID, SELFPAY ==
[2024-10-06 18:15] LABS: Appearance Urine Clear; Color Urine Yellow; Glucose Urine UA Negative (Negative); Leukocyte Esterase Urine Negative (Negative); Nitrite Urine Negative (Negative); PH 5.5 (5.0-9.0); Urine Blood Negative (Negative); Urine Ketones Negative (Negative); Urine Protein Negative (Neg-Trace)
[2024-10-07 15:29] LABS: CT PCR NOT DETECTED (Not Detect.); NG PCR NOT DETECTED (Not Detect.)
== END 2024-10-06 12:52 | disposition home or self-care (01) ==
LOC: HO.LAB 12:51
PROVIDERS: PCP Family Medicine; Visit Provider Family Medicine
DX: Z02.71 Encounter for disability determination (principal); M47.26 Other spondylosis with radiculopathy, lumbar region; M53.3 Sacrococcygeal disorders, not elsewhere classified; R30.0 Dysuria; Z11.3 Encounter for screening for infections with a predominantly sexual mode of transmission
CPT/HCPCS: 81003; 87491; 87591; 96127; 99212

== ENCOUNTER 2024-11-28 11:04 | Outpatient (AMB) | payer MEDICAID, SELFPAY ==
--- NOTE | 2024-11-28 11:23 | AM.OFFWIN_ITS ---
Intake Vital Signs 11/28/24 11:24 Height 5 ft 8 in Weight 182 lb BMI 27.7 BP 116/80 Blood Pressure Location Lt brachial Position Sitting Pulse 78 Pulse Source Pulse Oximeter Temp 98.6 F Pulse Oximetry (%) 98 Oxygen Delivery Method Room Air Intake Visit Reasons: EP Rash Intake Note: presents with rash to upper inner thighs for 3 days. Also c/o left lower back pain years Patient Tobacco Use Status: Former Tobacco user Allergies No Known Allergies (No Known Allergies*) Allergy (Mild, Verified 11/28/24 11:27) NOT APPLICABLE Medication List - Last Reconciled 11/28/24 by RODERICK Haro As directed famotidine 20 mg PO DAILY PRN omeprazole 20 mg PO DAILY Do you need a note to return to daycare/school/sports/work: No HPI HPI Comments History of Present Illness Details History - The patient is a 39-year-old male pres enting with an outbreak of genital herpes for a few days. - History of genital herpes with rare ou tbreaks, about once per year, managed with antiviral. - Patient inquired about obtaining a pre scription for valacyclovir to manage outbreaks promptly. - Anxiety and back pain were previously managed with medications including hydroxyzine and duloxetine, which led to weight gain and fatigue. - Patient discontinued these medications due to adverse effects. Physical Exam General: Cooperative, healthy appearing, comfortable, no acute distress and well developed Orientation: Patient oriented x3 Limitations: No limitations Head: Normal to inspection Ears: Hearing grossly normal bilaterally Nose: Normal External nose present Face and sinus: Normal facial exam Mouth: normal, moist oral mucosa Eyes: Appearance normal, both eyes and all related structures Neck: Normal visual inspection and Yes full ROM Respiratory: Normal respiratory effort and able to speak in complete sentences. Skin: Fluid-filled bumps noted on the upper groin area Neuro: Patient oriented x3 Extremities: moving all extremities normally PFSH Medical History Low platelet count GERD (gastroesophageal reflux disease) Surgical History History of esophagogastroduodenoscopy (EGD) Hx of colonoscopy No pertinent past surgical history Family History Unknown No family history of colorectal cancer Social History (Updated 10/06/24 @ 13:02 by Kylah Kirkpatrick MA) Housing: House Alcohol intake: current Alcohol intake frequency: a few times a week Patient Tobacco Use Status: Former Tobacco user Cigarette Packs Per Day: 0.5 Cigarettes Per Day: 12 Years Smoked: 10 e-Cigarette/Vaping Use: Never Used Second Hand Smoke Exposure: No Substance Use Type: Marijuana service: No Current occupational status: unemployed Cognitive needs: No Hearing needs: No Vision needs: No Review of Systems Const All systems reviewed & are unremarkable except as noted in HPI and below Physical Exam Vital Signs: Last Vital Signs Temp 98.6 F 11/28/24 11:24 Pulse 78 11/28/24 11:24 BP 116/80 11/28/24 11:24 Pulse Ox 98 11/28/24 11:24 Oxygen Delivery Method Room Air 11/28/24 11:24 BMI result Body Mass Index 27.7 Assessment & Plan Assessment & Plan (1) Genital herpes in men: Code(s): A60.02 - Herpesviral infection of other male genital organs Plan: Patient was informed and verbally consented to the use of an ambient scribe for clinic note documentation during this visit Genital Herpes - Prescribed valacyclovir 1000 mg once daily for five days to manage the outbreak. - Advised to follow up with primary care physician for ongoing management and potential refills. Medications: New valacyclovir 1,000 mg PO Q24H 5 tabs 0RF Yolanda Lara PA-C Changed From famotidine 20 mg PO DAILY 90 days 90 tabs 3RF To famotidine 20 mg PO DAILY PRN Ian Garcias MD Coding Level of Care Code Est Pt Level 3 (51414) Diagnoses Genital herpes in men A60.02
[2024-11-28 11:24] VITALS: BP 116/80; PULSE 78; TEMP 37; O2SAT 98; BMI 27.7
== END 2024-11-28 12:16 | disposition home or self-care (01) ==
PROVIDERS: PCP Family Medicine; Visit Provider Physician Assistant
DX: A60.02 Herpesviral infection of other male genital organs (principal)

== ENCOUNTER → 2024-11-28 11:04 | Outpatient (BNVA) | payer MEDICAID, SELFPAY | PROVIDERS: PCP Family Medicine; Visit Provider Physician Assistant | DX: A60.02 Herpesviral infection of other male genital organs (principal) | CPT/HCPCS: 99212 ==